=== PATIENT | female | born 1960 | race Caucasian/White ===

== ENCOUNTER → 2020-01-03 09:00 | Outpatient (BNVA) | payer MEDICARE, SELFPAY | PROVIDERS: Family Provider Nurse Practitioner; PCP Nurse Practitioner; Referring Provider Nurse Practitioner; Visit Provider Podiatrist Foot & Ankle Surgery | DX: Z01.89 Encounter for other specified special examinations (principal) | CPT/HCPCS: 87070; 87205 ==

== ENCOUNTER → 2020-01-03 09:02 | Outpatient (BNVA) | payer MEDICARE, SELFPAY | PROVIDERS: Family Provider Nurse Practitioner; PCP Nurse Practitioner; Referring Provider Nurse Practitioner; Visit Provider Podiatrist Foot & Ankle Surgery | DX: E11.43 Type 2 diabetes mellitus with diabetic autonomic (poly)neuropathy (principal); Z89.419 Acquired absence of unspecified great toe; L97.514 Non-pressure chronic ulcer of other part of right foot with necrosis of bone | CPT/HCPCS: 73630; 87070; 87205 ==

== ENCOUNTER 2020-01-09 07:49 | Outpatient (CLI) | payer MEDICARE, SELFPAY ==
--- NOTE | 2020-01-09 08:01 | MR_ITS ---
WS: [id number] INDICATION: Infection/osteomyelitis TECHNIQUE: MR of the right foot without gadolinium enhancement. Axial T1 and T2 and proton density im aging. Sagittal PD, STIR, coronal PD, and coronal T2 fat sat FINDINGS: Postoperative changes amputation distal first metatarsal. Soft tissue stump with soft tissu e edema. Normal soft tissue stump. No evidence of drainable abscess or fluid collection. Small amount of edema in the distal remnant first metatarsal likely reactive or post-operative. Soft tissue edema involving the second and digit more prominent distally. Loss of the normal fatty magdalena ne marrow signal in the distal second phalanx suspicious for osteomyelitis. No drainable fluid collec tions. Normal ankle mortise. Normal calcaneus. Normal distal tibial plafond. Distal Achilles appears normal. Normal medial and lateral malleolus. MR/MR foot RT wo con* [id number] IMPRESSION: 1. Edema involving the second digit with abnormal bone marrow signal involving the distal phalanx at the tuft suspicious for osteomyelitis. Small amount of e gopal extending into the second middle phalanx. 2. No drainable abscess or fluid collection. 3. Postoperative changes amputation of the distal first metatarsal with soft t issue edema.
== END 2020-01-09 07:50 | disposition home or self-care (01) ==
LOC: RADWPI 07:54
PROVIDERS: Family Provider Nurse Practitioner; PCP Nurse Practitioner; Visit Provider Podiatrist Foot & Ankle Surgery
DX: L97.514 Non-pressure chronic ulcer of other part of right foot with necrosis of bone (principal); Z89.421 Acquired absence of other right toe(s); R60.0 Localized edema
CPT/HCPCS: 73718

== ENCOUNTER 2020-01-10 05:41 | Day surgery (SDC) | payer MEDICARE, SELFPAY ==
[2020-01-10 05:55] VITALS: BP 130/78; PULSE 80; RESP 16; O2SAT 100
[2020-01-10 06:08] VITALS: TEMP 36.4
[2020-01-10] MEDS: sodium chloride 0.9% 1,000 ML 30 ML IV (06:10)
[2020-01-10 06:15] LABS: Glucose Point of Care 101 mg/dL (70-110)
--- NOTE | 2020-01-10 06:48 | P.ANESASSM_ITS ---
Pre-Anesthetic Assessment Pre-Anesthetic Assessment: Height/Weight: Height 1.75 m Weight 77.111 kg Temp Pulse Resp BP Pulse Ox 97.6 F 80 16 130/78 100 01/10/20 06:08 01/10/20 05:55 01/10/20 05:55 01/10/20 05:55 01/10/20 05:55 Preop Diagnosis: Osteomyelitis right second toe Proposed Procedure: Operation Date: 01/10/20 07:00 Proposed Procedures p Amputation Toe/s 82593 L97.514(Right) - Eduin Cardoso DPM Familial anesthetic complications: None Was Beta Malia taken within 24 ho urs: N/A Last intake: Intake Last Liquid Date 01/10/20 Last Liquid Time 21:00 Last Solid Date 01/09/20 Last Solid Time 21:00 Social: Social History: No alcohol and No tobacco Exam: Pre-Anes Outpt Exam: alert, oriented x 3, clear to auscultation bilaterally and regular rate & rhythm Airway: Cervical ROM: WNL MP: 2 Additional comments: crowns and bridges Pulmonary: Pulmonary: None reported CV/HEM: CV/HEM: HTN : : None reported Hepatic: Hepatic: None reported GI: GI: None reported Metabolic: Metabolic: DM Comments: Type 2 - takes insulin Musc/skel: Musc/skel: None reported Neuropsych: Neuropsych: CVA (1999) Anesthetic Plan: ASA status: 3 Anesthesia: MAC Risk of > 500 ml blood loss (7ml/kg in children): No Meds/Allergies Current Medications: Current Medications Generic Name Dose Route Start Last Admin Trade Name Freq PRN Reason Stop Dose Admin Sodium Chloride 1,000 mls @ 30 ml s/hr 01/10/20 05:45 01/10/20 06:10 Sodium Chloride 0.9% IV 01/11/20 05:44 30 mls/hr .Q24H FELICIA Administration PFSH Anesthesia PFSH: Social History (Updated 01/03/20 @ 08:19 by Mimi Velazquez LPN) Smoking and tobacco status: former smoker Alcohol intake: never Household members: spouse Marital status: Current occupational status: unemployed Female Reproductive History: Date of last menstrual period: 11/02/12 Data Anesthesia Other Labs: Laboratory Results - last 48 hr 01/10/20 06:11 POC Glucose 101 Cardiac Studies: No Data to Display
[2020-01-10] MEDS: clindamycin 600 MG/50 ML PREMIX 100 MG IV (06:59)
--- NOTE | 2020-01-10 07:42 | PM.OP ---
Operative Report Date of procedure: January 10, 2020 Pre-op Diagnosis: Osteomyelitis right second toe Post-op diagnosis: same Post-op Findings: Devitalized bone distal phalanx right second toe Procedure Done: Right second toe amputation at metatarsal phalangeal joint. Implants: None Specimens removed/disposition: Distal phalanx right second toe sent to microbiology for culture and sensitivity. Remaining second toe sent to pathology for permanent Pathology: Second toe right foot Surgeon: Eduin Cardoso D.P.M. Physician Interventional Cardiologist: Sheila Anesthesia: MAC Estimated blood loss: 5 mL IV fluids: None Urine output: None Complications: None Findings: Devitalized soft tissue and bone right second toe Condition: stable Disposition: PACU Brief History: Patient is status post right hallux amputation fall 2018. She has a transfer pressure and subsequent wound formation on the right second toe exposed bone. Significant lysis of distal phalanx on plain film x-ray. MRI suggestive of osteomyelitis of distal phalanx and potentially intermediate phalanx. Recommended right second toe amputation. Patient is agreeable. Risks include pain, bleeding, numbness, infection, need for higher level of amputation. Need for antibiotic therapy and further surgical debridement, transfer pressure and loss of function. Procedure: Under mild sedation the patient was brought to the operating room and placed on the operating table in supine position. A timeout was performed. Anesthesia was administered by the anesthesia service. Local anesthesia was injected by myself 20 cc of 0.5% Marcaine plain. Well-padded pneumatic tourniquet was applied to the right ankle. The right lower extremity was then scrubbed, prepped and draped utilizing normal aseptic technique. Right foot was elevated and the tourniquet was inflated to 250 mmHg. Attention was directed to the right foot second toe where a 15 blade was utilized to perform a full-thickness down to bone incision this was a vertical incision with 2 semielliptical converging incisions to disarticulate the right second toe at the metatarsal phalangeal joint. This was passed from operative field. Distal phalanx was dissected out on the back table and sent to microbiology for culture and sensitivity. Remaining second toe sent to pathology for permanent. Attention was then directed to the incision where it was flushed with copious amounts of sterile saline solution. Second metatarsal head appeared viable with appropriate color and density. No remaining devitalized tissue appreciated. There appeared to be clean margin at soft tissue and bone. Deep subcutaneous tissue was closed with 3-0 Vicryl. Skin closed with 4-0 nylon. Incision site was dressed with Adaptic, sterile 4 x 4's, Kerlix and Remi wrap. Tourniquet was deflated and a prompt hyperemic response was noted to the remaining digits of the right foot. Patient tolerated the procedure well and was transferred to the PACU with vital signs stable and vascular status intact. Following a period of postoperative monitoring she will be discharged home is to be limited weightbearing with a Darco shoe and walker. She will continue her doxycycline for an additional 7 days twice daily 100 mg. Follow-up in clinic 01/19/2020
[2020-01-10 07:47] VITALS: BP 107/70; PULSE 81; RESP 18; TEMP 36.1; O2SAT 96
[2020-01-10 08:11] VITALS: BP 127/81; PULSE 68; RESP 18; O2SAT 99
--- NOTE | 2020-01-10 12:10 | W.PM.OPSUD ---
Surgery/Procedure H&P Update DATE OF PROCEDURE: January 10, 2020 DATE H&P PERFORMED: 01/03/20 H&P UPDATE INFORMATION: I have reviewed H&P completed within last 30 days, I have examined patient prior to procedure, No changes to prior documentation and [place] [facility] [place] date indicated PREOP DIAGNOSIS: Osteomyelitis right second toe PLANNED PROCEDURE: Operation Date: 01/10/20 07:00 Proposed Procedures p Amputation Toe/s 00027 L97.514(Right) - Eduin Cardoso DPM
== END 2020-01-10 08:32 | disposition home or self-care (01) ==
PROVIDERS: Family Provider Nurse Practitioner; PCP Nurse Practitioner; Visit Provider Podiatrist Foot & Ankle Surgery
PROC: (CPT 28820; principal; 2020-01-10 07:00)
DX: M86.8X8 Other osteomyelitis, other site (principal); I10 Essential (primary) hypertension; E11.43 Type 2 diabetes mellitus with diabetic autonomic (poly)neuropathy; Z79.4 Long term (current) use of insulin; Z87.891 Personal history of nicotine dependence; E78.5 Hyperlipidemia, unspecified; Z89.411 Acquired absence of right great toe; L97.514 Non-pressure chronic ulcer of other part of right foot with necrosis of bone
CPT/HCPCS: 28820; 12345; 36416; 82962; 88305; J2001; J2704; J3010; J3490; J7030

== ENCOUNTER → 2020-01-15 11:40 | Outpatient (BNVA) | payer MEDICARE, SELFPAY | PROVIDERS: Family Provider Nurse Practitioner; PCP Nurse Practitioner; Referring Provider Nurse Practitioner; Visit Provider Podiatrist Foot & Ankle Surgery | DX: E11.43 Type 2 diabetes mellitus with diabetic autonomic (poly)neuropathy (principal); L97.514 Non-pressure chronic ulcer of other part of right foot with necrosis of bone; Z79.4 Long term (current) use of insulin; M20.41 Other hammer toe(s) (acquired), right foot; M20.42 Other hammer toe(s) (acquired), left foot; Z89.419 Acquired absence of unspecified great toe | CPT/HCPCS: 87070; 87077; 87186; 87205 ==

== ENCOUNTER → 2020-06-21 08:39 | Outpatient (BNVA) | payer MEDICARE, SELFPAY | PROVIDERS: Family Provider Nurse Practitioner; PCP Nurse Practitioner; Visit Provider Family Medicine | DX: I10 Essential (primary) hypertension (principal); E11.40 Type 2 diabetes mellitus with diabetic neuropathy, unspecified; E78.5 Hyperlipidemia, unspecified; E78.6 Lipoprotein deficiency; E11.9 Type 2 diabetes mellitus without complications | CPT/HCPCS: 80053; 80061; 82043; 83036; 85025 ==

== ENCOUNTER 2020-06-26 10:30 | Emergency (ER) | payer MEDICARE, SELFPAY ==
[2020-06-26 10:42] VITALS: BP 134/77; PULSE 84; PULSE 85; RESP 16; TEMP 36.7; O2SAT 100; O2SAT 99; BMI 26.1
--- NOTE | 2020-06-26 10:48 | CT_ITS ---
WS: [id number] CT HEAD NONCONTRAST HISTORY: stroke like symptoms TECHNIQUE: Contiguous axial imaging performed through the brain in 2.5 mm imaging. Bone and soft tiss ue windows. Sagittal and coronal reformats reviewed. All CT scans at [facility] use at ast one of these dose optimization techniques: automated exposure control; mA and/or kV adjustment pe r patient size (includes targeted exams where dose is matched to clinical indication); or iterative r econstruction. DLP: 775.94 mGy.cm COMPARISON: None available. No acute intracranial hemorrhage, midline shift or mass effect. Mild atrophy and chronic ischemic disease. Prior lacunar infarct RIGHT occipital lobe. Additional rem ote infarct in the LEFT cerebellum. Ventricles: Normal size with no hydrocephalus. Dense calcifications noted towards the LEFT vertex may be from calcified meningiomas. Metallic fragme nt causing artifact in the posterior LEFT parietal region. Paranasal sinuses: As visualized are clear. Mastoid air cells: Well pneumatized. Calvarium and scalp: No fractures. Prior defects in the RIGHT temporal and possibly the LEFT temporal and posterior parietal bone. Probably from prior surgery and melany hole formations. Notified Dr. Garcia at 06/26/2020 11:[address]/CT head wo con* [id number] IMPRESSION: 1. No acute intracranial hemorrhage. 2. Very mild atrophy. 3. Small prior lacunar infarct RIGHT occipital and LEFT cerebellum.
[2020-06-26 10:51] VITALS: BP 134/77; PULSE 80; RESP 17; O2SAT 100
--- NOTE | 2020-06-26 11:01 | CT_ITS ---
WS: [id number] CT ANGIOGRAM CEREBRAL AND CAROTID ARTERIES HISTORY: posterior circulation symptoms TECHNIQUE: CT angiogram is performed of the carotid and cerebral arteries. During arterial injection imaging is obtained from the skull vertex to the aortic arch in 1.25 mm imaging. Coronal and sagittal reformats are submitted. Additional multi planar reformats of the carotid and cerebral arteries are submitted, MIP imaging also reviewed. NASCET criteria utilized. All CT scans at [facility] use at least one of these dose optimization techniques: automated exposure control; mA and/or kV ad justment per patient size (includes targeted exams where dose is matched to clinical indication); or iterative reconstruction. CONTRAST: Visipaque 320; 95 mL IV. DLP: 2500.63 mGy.cm COMPARISON: Noncontrast CT head 06/26/2020, neck CT 04/30/2011. Carotid Angiogram: Right carotid: Common carotid artery: Arises normally from the innominate artery. No significant plaque or stenosis. Internal carotid artery: Small noncalcified plaque and intimal thickening bifurcation. No significant stenosis. External carotid artery: Patent. Left carotid: Common carotid artery: Mild atherosclerosis. Artery arises normally from the arch. Internal carotid artery: Mild intimal thickening and scattered plaque at the bifurcation. No stenosis . External carotid artery: Patent. Right vertebral artery: Small caliber. Distal vertebral arteries not well enhanced. Left vertebral artery: Arises normally from the subclavian artery. Very small caliber LEFT vertebral artery throughout its course. Distal vertebral and enhancement is poorly visualized. Subclavian arteries: Atherosclerosis bilaterally in the subclavian arteries. No high-grade stenosis. Upper thorax: Normal. Thyroid gland: Very small subcentimeter RIGHT thyroid nodules. Osseous structures: Mild degenerative disc disease and spondylosis at C5-C6. No fractures. CEREBRAL ANGIOGRAM: Intracranial vertebral arteries: Distal vertebral arteries are poorly visualized. There is a dense ca lcification expected location of the distal LEFT vertebral artery. Basilar artery: Basilar artery is small caliber but patent. Intracranial Internal carotid arteries: Dense atherosclerotic plaque through the cavernous sinuses. N o occlusion. Middle cerebral arteries: Normal. Anterior cerebral arteries and ACOM: Normal. Posterior cerebral arteries and PCOM's: circulation bilaterally posterior cerebral arteries. P- comm are patent. Dural venous sinuses are normally enhancing. Mastoid air cells: Normal. Paranasal sinuses: Normal. Calvarium: Normal. CT/CT angio headneck* [id number] IMPRESSION: 1. No significant extracranial carotid artery stenosis. 2. Moderate atherosclerosis intracranial carotid arteries with no high-grade s tenosis. 3. Vertebral arteries are very small caliber bilaterally with incomplete enhan cement in the distal vertebral arteries. These findings may be congenital. No t hrombus is identified. No evidence for dissection. Similar findings were noted on neck CT from 04/30/2011. 4. Small caliber but patent basilar artery.
--- NOTE | 2020-06-26 11:02 | ECG_ITS ---
[facility] Test Date: 2020-06-26 Pat Name: Misti Abbott Department: Room: Gender: Female Cytometry Technologist: : 1960 Requested By: Socorro Dos Santos Order Number: [id number] Brian MD: Jan Fritz M.D. Measurements Intervals [place] Rate: 83 P: -31 NH: 159 QRS: 23 QRSD: 68 T: 44 QT: 372 QTc: 438 Interpretive Statements SINUS RHYTHM Compared to ECG 07/01/2019 16:59:02 Sinus tachycardia no longer present Electronically Signed On 06-26-2020 12:21:00 CDT by Jan Fritz M.D. [id number]
[2020-06-26] MEDS: iodixanol 320 mg/mL 100mL Btl IV (11:20)
[2020-06-26 11:22] LABS: Basophils % 0.5 %; Eosinophils # 0.2 10^3/uL (0.0-0.8); Eosinophils % 2.3 %; Hematocrit 32.5 % (37.0-47.0); Hemoglobin 10.4 g/dL (11.5-15.3); Lymphocytes # 1.7 10^3/uL (0.8-4.8); Lymphocytes % 22.8 %; Mean Corpuscular Hemoglobin 27.5 pg (28.0-34.0); Mean Platelet Volume 11.6 fL (7.4-10.4); Monocytes # 0.8 10^3/uL (0.2-0.9); Monocytes % 10.9 %; Neutrophils % 63.2 %; Nucleated Red Blood Cells % 0 %; Platelet Count 197 10^3/cmm (130-400); Red Blood Count 3.78 10^6/uL (4.1-5.3); Red Cell Distribution Width 12.3 % (12.1-15.1); White Blood Count 7.4 10^3/uL (4.0-10.0)
[2020-06-26 11:36] LABS: Alanine Aminotransferase 26 U/L (0-33); Albumin Level 4.7 g/dL (3.5-5.2); Alkaline Phosphatase 69 IU/L (35-105); Anion Gap 14.6 (5-19); Aspartate Amino Transferase 26 U/L (0-32); Blood Urea Nitrogen 45 mg/dL (6-20); Calcium 9.3 mg/dL (8.5-10.5); Carbon Dioxide 22 mmol/L (22-29); Chloride 100 mmol/L (98-107); Globulin 2.7 g/dL (1.3-4.6); Glucose 169 mg/dL (65-115); INR 0.97 (0.8-1.2); Osmolality Calculated 276 mOsm/kg (285-295); Potassium 4.6 mmol/L (3.5-5.1); Sodium 132 mmol/L (136-145); Total Bilirubin 0.2 mg/dL (0.15-1.2); Total Protein 7.4 g/dL (6.6-8.7)
--- NOTE | 2020-06-26 11:38 | W.ED.NEUROSD ---
HPI - Neuro Symptoms/Deficit General: Chief Complaint: Neuro Symptoms/Deficit Stated Complaint: stroke symptoms Time Seen by Provider: 06/26/20 10:54 History of Present Illness: HPI Narrative: This patient is a 59-year-old female presenting today with stroke symptoms. She has a history of stroke, diabetes. She is well-known to Dr. Corbett who tells me that she has posterior circulation problems. My history mostly came from the as the patient was already in CT and being seen by Dr. Corbett on my arrival. He tells me that the patient called him at about 9:13 this morning and said that she was getting sick. She was having some slurred speech and said that she felt like she was being twisted around. She had some vomiting. These are symptoms similar to her prior stroke and so he immediately left work to get her and bring her to the hospital. The symptoms are waxing and waning. On evaluation she had a low NIH scale but persistent deviation of her gaze to the left. CT was negative and she is going back for a CTA per Dr. Corbett. Time: 08:00 Timing confirmed by: spouse Location: speech, dysarthria, ataxia and other (Dizziness, vertigo) History of same: Yes Severity: severe Quality: intermittent Relieving factors: none Exacerbating factors: none Context: sudden onset On Anticoagulants: No Associated symptoms: Reports nausea, vertigo and vomiting; Deny chest pain Review of Systems General: Reports: 10 or more systems reviewed and unremarkable except in HPI and below Card: Denies: chest pain Resp: Denies: productive cough GI: Reports: nausea and vomiting Neuro: Reports: vertigo Endo: Denies: polyuria or polydipsia [facility] ED PFSH: Medical History Hyperlipidemia with low HDL Hypertension Type 2 diabetes mellitus with diabetic neuropathy, unspecified Surgical History H/O tubal ligation History of amputation of great toe right 07/25/2019 Social History Smoking and tobacco status: former smoker Alcohol intake: never Household members: spouse Marital status: Current occupational status: unemployed Female Reproductive History: Date of last menstrual period: 11/02/12 Physical Exam Const: COMMON NORMALS: no acute distress, patient oriented x3, no limitations and alert GENERAL APPEARANCE: cooperative, comfortable, well kempt, anxious, frail appearing and appears older than stated age NUTRITIONAL APPEARANCE: thin HENMT: HEAD & SCALP: normal to inspection FACE & SINUS: normal facial exam Eye: GENERAL EYE: appearance normal, both eyes and all related structures ALIGNMENT: Yes other (Preferential gaze to the left) Neck/C-Spine: COMMON NORMALS: supple, no meningeal signs and no JVD Chest: COMMONS NORMALS: normal inspection of the chest Resp: COMMON NORMALS: normal respiratory effort, No use of accessory muscles and clear to auscultation bilaterally AUSCULTATION: clear to auscultation bilaterally Cardio: COMMON NORMALS: no JVD, regular rate, regular rhythm and No murmurs present (Cardio) RATE: regular rate RHYTHM: regular rhythm GI: COMMON NORMALS: Normal to inspection, nondistended, normoactive bowel sounds present, Soft to palpation and non-tender INSPECTION: Yes normal to inspection AUSCULTATION: Yes normoactive bowel sounds PALPATION: Yes Soft to palpation Back/Pelvis: COMMON NORMALS: thoracic and lumbar spine normal to inspection Extremity: COMMON NORMALS: normal to inspection Neuro: COMMON NORMALS: patient oriented x3, moves all extremities, no focal motor deficits and no sensory deficits noted SENSORIUM/ORIENTATION: Yes alert MENINGEAL SIGNS: Yes no meningeal signs CRANIAL NERVES: Yes other (Preferential gaze to the left) OTHER: Residual symptoms from prior stroke, neuropathy related to diabetes Psych: COMMON NORMALS: mental status grossly normal, cooperative and normal affect APPEARANCE: Yes well kempt Skin: COMMON NORMALS: no rashes or lesions noted and turgor normal GENERAL SKIN EXAM: no rashes or lesions noted and turgor normal Course ED course: Patient presented and was immediately sent to CT. Dr. Corbett saw her in the department and managed her care. She had a CTA which showed unchanged narrowing of the posterior circulation. Per discussion with Dr. Corbett I have put her on aspirin and Plavix and she will follow-up with Dr. Corbett in the office. We offered admission but she prefers to go home and I feel that she is safe to do so. Vital Signs: Vital signs: Vital Signs Temperature 97.3 F L 06/26/20 12:48 Pulse Rate 82 08/05/20 12:48 Respiratory Rate 18 06/26/20 12:48 Blood Pressure 117/69 06/26/20 12:48 Pulse Oximetry 99 06/26/20 12:48 MDM - Neuro Symptoms/Deficit Lab Data: Labs: Lab Results 06/26/20 06/26/20 06/26/20 Range/Units 10:41 10:42 10:42 WBC 7.4 (4.0-10.0) 10^3/ uL RBC 3.78 L (4.1-5.3) 10^6/u L Hgb 10.4 L (11.5-15.3) g/dL Hct 32.5 L (37.0-47.0) % MCV 86.0 (81-99) fL MCH 27.5 L (28.0-34.0) pg MCHC 32.0 (30.0-36.0) g/dL RDW 12.3 (12.1-15.1) % Plt Count 197 (130-400) 10^3/c mm MPV 11.6 H (7.4-10.4) fL Neut % (Auto) 63.2 % Lymph % (Auto) 22.8 % Dale % (Auto) 10.9 % Eos % (Auto) 2.3 % Baso % (Auto) 0.5 % Neut # (Auto) 4.70 (1.8-7.7) 10^3/u L Lymph # (Auto) 1.7 (0.8-4.8) 10^3/u L Dale # (Auto) 0.8 (0.2-0.9) 10^3/u L Eos # (Auto) 0.2 (0.0-0.8) 10^3/u L Baso # (Auto) 0.0 (0.0-0.1) 10^3/u L Nucleated RBC % (a uto) 0 % Nucleated RBCs # 0.0 /100WBC PT 13.20 (12.1-14.9) SECO NDS INR 0.97 (0.8-1.2) APTT 25.1 (23.9-36.7) SECO NDS Sodium (136-145) mmol/L Potassium (3.5-5.1) mmol/L Chloride (98-107) mmol/L Carbon Dioxide (22-29) mmol/L Anion Gap (5-19) BUN (6-20) mg/dL Creatinine (0.5-0.9) mg/dL GFR Calculation (90-130) mL/min Glucose (65-115) mg/dL POC Glucose 166 (70-110) mg/dL Calculated Osmolal ity (285-295) mOsm/k g Calcium (8.5-10.5) mg/dL Total Bilirubin (0.15-1.2) mg/dL AST (0-32) U/L ALT (0-33) U/L Alkaline Phosphata se (35-105) IU/L Total Protein (6.6-8.7) g/dL Albumin (3.5-5.2) g/dL Globulin (1.3-4.6) g/dL Urine Color (Yellow) Urine Appearance (CLEAR) Urine pH (5-7) Ur Specific Gravit y (1.005-1.030) Urine Protein (Negative) Urine Glucose (UA) (Normal) Urine Ketones (Negative) Urine Blood (Negative) Urine Nitrate (Negative) Urine Bilirubin (NEGATIVE) Urine Urobilinogen (Negative) mg/dL Ur Leukocyte Sandra ase (Negative) 06/26/20 06/26/20 Range/Units 10:42 11:50 WBC (4.0-10.0) 10^3/ uL RBC (4.1-5.3) 10^6/u L Hgb (11.5-15.3) g/dL Hct (37.0-47.0) % MCV (81-99) fL MCH (28.0-34.0) pg MCHC (30.0-36.0) g/dL RDW (12.1-15.1) % Plt Count (130-400) 10^3/c mm MPV (7.4-10.4) fL Neut % (Auto) % Lymph % (Auto) % Dale % (Auto) % Eos % (Auto) % Baso % (Auto) % Neut # (Auto) (1.8-7.7) 10^3/u L Lymph # (Auto) (0.8-4.8) 10^3/u L Dale # (Auto) (0.2-0.9) 10^3/u L Eos # (Auto) (0.0-0.8) 10^3/u L Baso # (Auto) (0.0-0.1) 10^3/u L Nucleated RBC % (a uto) % Nucleated RBCs # /100WBC PT (12.1-14.9) SECO NDS INR (0.8-1.2) APTT (23.9-36.7) SECO NDS Sodium 132 L (136-145) mmol/L Potassium 4.6 (3.5-5.1) mmol/L Chloride 100 (98-107) mmol/L Carbon Dioxide 22 (22-29) mmol/L Anion Gap 14.6 (5-19) BUN 45 H (6-20) mg/dL Creatinine 1.7 H (0.5-0.9) mg/dL GFR Calculation 31.0 L (90-130) mL/min Glucose 169 H (65-115) mg/dL POC Glucose (70-110) mg/dL Calculated Osmolal ity 276 L (285-295) mOsm/k g Calcium 9.3 (8.5-10.5) mg/dL Total Bilirubin 0.2 (0.15-1.2) mg/dL AST 26 (0-32) U/L ALT 26 (0-33) U/L Alkaline Phosphata se 69 (35-105) IU/L Total Protein 7.4 (6.6-8.7) g/dL Albumin 4.7 (3.5-5.2) g/dL Globulin 2.7 (1.3-4.6) g/dL Urine Color Yellow (Yellow) Urine Appearance Clear (CLEAR) Urine pH 5 (5-7) Ur Specific Gravit y 1.010 (1.005-1.030) Urine Protein Neg (Negative) Urine Glucose (UA) Norm (Normal) Urine Ketones Negative (Negative) Urine Blood Neg (Negative) Urine Nitrate Negative (Negative) Urine Bilirubin Neg (NEGATIVE) Urine Urobilinogen Neg (Negative) mg/dL Ur Leukocyte Sandra ase Negative (Negative) Discharge Plan Discharge Patient Disposition: Home Clinical Impression: Transient cerebral ischemia Qualifiers: Transient cerebral ischemia type: unspecified Qualified Code(s): G45.9 - Transient cerebral ischemic attack, unspecified Type 2 diabetes mellitus with diabetic neuropathy, unspecified Qualifiers: Diabetes mellitus oil heaterman insulin use: with penitentiary use Qualified Code(s): E11.40 - Type 2 diabetes mellitus with diabetic neuropathy, unspecified Condition: Stable Prescriptions: New Plavix 75 mg tablet 75 mg PO DAILY Qty: 30 RF: 0 aspirin 325 mg tablet 325 mg PO DAILY Qty: 30 RF: 0 meclizine 25 mg tablet 25 mg PO TID PRN (Reason: dizziness) Qty: 30 RF: 0 No Action lisinopril 2.5 mg tablet 2.5 mg PO BEDTIME RF: 0 Lantus U-100 Insulin 100 unit/mL solution 25 unit SUBCUT BEDTIME Qty: 10 RF: 1 Novolog Flexpen U-100 Insulin 100 unit/mL (3 mL) insulin pen See Rx Instructions .ROUTE .COMPLEX Qty: 15 RF: 0 rosuvastatin 10 mg tablet 10 mg PO DAILY RF: 0 Discharge Orders: Discharge Order (Routine); Ordered 06/26/20 Ordered By: Socorro Solorzano Referrals: Jahaira Corbett MD [Physician] - 2 weeks Marjorie Cullen FNP [Primary Care Provider] - Discharge Diet: Usual diet Discharge Activity: Resume usual activity Patient Instructions: Transient Ischemic Attack (ED) Activity Restrictions/Additional Instructions: Return to the emergency department if you have new or worse symptoms or symptoms that do not resolve. Follow-up with Dr. Corbett in 1 to 2 weeks. Take the aspirin and Plavix daily, starting tomorrow morning. Discharge Date/Time: 06/26/20 12:51 Coding Level of Care Code ED [employer] Sales Supervisor for [facility] Fwd Exam Comprehensive
[2020-06-26 11:39] LABS: Partial Thromboplastin Time 25.1 SECONDS (23.9-36.7)
[2020-06-26 11:45] VITALS: BP 134/81; PULSE 83; RESP 16; O2SAT 100
[2020-06-26 11:45] LABS: Glucose Point of Care 166 mg/dL (70-110)
[2020-06-26] MEDS: ondansetron 2 mg/ML SDV 2 mL 4 MG IVP (11:46)
[2020-06-26 12:09] LABS: Add Urine Microscopic? NO
[2020-06-26 12:30] LABS: Bilirubin Urine Neg (NEGATIVE); Blood Urine Neg (Negative); Glucose Urine UA Norm (Normal); Ketones Urine Negative (Negative); Leukocyte Esterase Urine Negative (Negative); Nitrate Urine Negative (Negative); Protein Urine Neg (Negative); Urine Appearance Clear (CLEAR); Urine Color Yellow (Yellow); Urobilinogen Urine Neg (Negative); pH Urine 5 (5-7)
[2020-06-26] MEDS: clopidogrel 75 mg Tablet PO (12:47)
[2020-06-26] MEDS: aspirin 325 mg Tablet PO (12:47)
[2020-06-26] MEDS: meclizine 25 mg tablet PO (12:47)
[2020-06-26 12:48] VITALS: BP 117/69; PULSE 82; RESP 18; TEMP 36.3; O2SAT 99
--- NOTE | 2020-06-26 17:34 | PM.SAN ---
Stroke Alert Activation ED Arrival Date: 06/26/20 ED Arrival Time: 10:30 ED Physican at Bedside: 10:40 Last Known Normal/at Baseline: 2-3 hours ago Other Last Known Well Infomation: I was called for stroke alert at 1049 for this 59-year-old woman who is well-known to me, as I took care of her more than 10 years ago when she had a brainstem stroke. She got up this morning and was feeling fine. She developed the sudden onset of severe vertigo. She called out to her for help. She could walk but not well. She vomited twice. Her vision was disturbed. She came to the emergency department with her and was identified as a stroke alert in triage at 1030. Stroke alert was called at 1048. Accu-Chek was 166 and blood pressure 134/77. She went to CAT scan at 1050 and I looked at her images on the monitor. Those were unremarkable. While they were completing the study I looked at another patient who was identified in triage as a stroke alert as he was in a wheelchair waiting to come into CAT scan. I followed this patient back to her room and performed an NIH stroke scale in the company of Dr. Solorzano. 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 I performed a Hallpike [place] and it was negative for positional vertigo. I stood her up and she was able to march in place at the bedside. I could not find any sign of new weakness. She has dense right hemianesthesia and upper motor neuron right arm that is chronic as well as [id number] ataxia on the right that is chronic from previous cerebellar infarct. I asked that she have a stat CT angiogram to rule out posterior circulation occlusion because of her profound vertigo and left-sided nystagmus. I observe that study on the monitor and notify Dr. Solorzano. The patient has small right vertebral artery, extremely small left vertebral artery and both of those and before the basilar artery, which seems to be filled from above by the posterior communicators. I looked at a CAT scan of the neck soft tissues that was done in 2010 and it shows the same circulation. It just happens that her circulation could be visualized on the old CAT scan. I advised that the patient could go home on Plavix and aspirin and I will work her into the clinic within a couple of weeks. Dr. Solorzano and I communicated multiple times on this patient. Stroke Alert Activated by: Triage Stroke Alert Activation Time: 10:48 Stroke MD @ Bedside Time: 10:50 NIH Stroke Scale Time: 10:52 NIH Stroke Scale Score: NIH Stroke Scale Score: 1 NIH stroke score NIHSS: Level Of Consciousness - 1a: 0 Level Of Consciousness Questions - 1b: Both Correct Level Of Consciousness Commands - 1c: Both Correct Best Gaze - 2: Normal Visual Ferrell - 3: No Visual Loss Facial Palsy - 4: Normal Motor Arm Right - 5: Drift (Atrophy right upper extremity with slight weakness from old stroke) Motor Arm Left - 5: No Drift Motor Leg Right - 6: No Drift Motor Leg Left - 6: No Drift Limb Ataxia - 7: Present In One Limb (Ataxia right lower extremity old stroke) Sensory - 8: Mild To Moderate Loss (At least moderate to severe anesthesia right side) Best Language - 9: No Aphasia Dysarthia - 10: Normal Extinction And Inattention - 11: 0 Score: Total Score: 3 Stroke Alert Data/Treatment Time to CT of Head: 10:50 CT Results Time: 10:55 CT Impression: Negative Stroke Risk Factors: hypertension and diabetes mellitus (Previous brainstem stroke, known vertebral artery stenosis) tPA Contraindication: tPA Contraindication: Treatment not indcated tPA Admin Prior to Arrival: No Patient & Family Educated on: Cause of Stroke, Risk Factors and Treament Plan Standardized Stroke Orders Used: No (Patient did not require admission) Critical Care Time Critical Care Time: 30 - 74 mins A&P Assessment and plan (1) Transient cerebral ischemia: Status: Acute Qualifiers: Transient cerebral ischemia type: unspecified Qualified Code(s): G45.9 - Transient cerebral ischemic attack, unspecified (2) Vertebrobasilar artery insufficiency: Transient severe vertigo to the point of vomiting with left-sided nystagmus. Although she has a history of congenital nystagmus previously diagnosed, this nystagmus was focal and I think it was related to brainstem ischemia. Her symptoms and signs cleared over the course of her stay and she did not receive TPA. Plan on discharging her from the ER on Plavix and aspirin and I will see her in the office within a couple of weeks. Status: Acute Coding Level of Care Code Acute Right Of Way Worker for [facility] Diagnoses Transient cerebral ischemia G45.9 Transient cerebral ischemia type: unspecified Vertebrobasilar artery insufficiency G45.0
== END 2020-06-26 12:51 | disposition home or self-care (01) ==
PROVIDERS: Emergency Provider Emergency Medicine; Family Provider Nurse Practitioner; PCP Nurse Practitioner
DX: G45.9 Transient cerebral ischemic attack, unspecified (principal); E11.40 Type 2 diabetes mellitus with diabetic neuropathy, unspecified; Z79.4 Long term (current) use of insulin; E78.5 Hyperlipidemia, unspecified; I10 Essential (primary) hypertension; Z87.891 Personal history of nicotine dependence
CPT/HCPCS: 12345; 36416; 70450; 70496; 70498; 80053; 81003; 82962; 85025; 85610; 85730; 93005; 93010; 96374; 96375; 99283; 99284; J2405; J8597; Q9967

== ENCOUNTER → 2020-07-17 14:24 | Outpatient (BNVA) | payer MEDICARE, SELFPAY | PROVIDERS: Family Provider Nurse Practitioner; PCP Nurse Practitioner; Referring Provider Specialist; Visit Provider Specialist | DX: G62.9 Polyneuropathy, unspecified (principal); I69.398 Other sequelae of cerebral infarction; R20.9 Unspecified disturbances of skin sensation; R42 Dizziness and giddiness; Z87.891 Personal history of nicotine dependence | CPT/HCPCS: 99205 ==

== ENCOUNTER → 2020-07-26 10:07 | Outpatient (BNVA) | payer MEDICARE, SELFPAY | PROVIDERS: Family Provider Nurse Practitioner; PCP Nurse Practitioner; Visit Provider Family Medicine | DX: D50.9 Iron deficiency anemia, unspecified (principal); E11.40 Type 2 diabetes mellitus with diabetic neuropathy, unspecified; Z79.4 Long term (current) use of insulin; Z01.419 Encounter for gynecological examination (general) (routine) without abnormal findings | CPT/HCPCS: 80048; 82728; 83550; 88175 ==

== ENCOUNTER 2020-08-06 08:09 | Outpatient (CLI) | payer MEDICARE, SELFPAY ==
--- NOTE | 2020-08-06 08:18 | MR_ITS ---
WS: [id number] MRI BRAIN WITHOUT CONTRAST HISTORY: I63.9 Cerebral infarction, unspecified COMPARISON: CT 06/26/2020 TECHNIQUE: Diffusion imaging, multiplanar T1, T2 and FLAIR imaging obtained. No evidence for acute infarct or hemorrhage. Bhatia-white matter differentiation is normal. Minimal chronic T2 and FLAIR signal hyperintensities in subcortical white matter. Prior small infarct s in the far lateral LEFT cerebellum and RIGHT occipital lobes. Ventricles and extra-axial spaces are normal. No inferior displacement of cerebellar tonsils. The sella turcica and pituitary gland are unremarkabl e. Dural venous sinuses and [place] demonstrate no abnormality on this unenhanced studies. Paranasal sinuses: Clear. Mastoid air cells: Normal. Calvarium and scalp: Intact. MR/MR head wo con* [id number] IMPRESSION: 1. No acute infarct or hemorrhage. 2. Mild chronic microvascular ischemic disease. 3. Remote small infarcts RIGHT occipital lobe and LEFT cerebellum.
--- NOTE | 2020-08-06 09:30 | MR_ITS ---
WS: [id number] MRA ANGIOGRAPHY [place] HISTORY: I63.9 Cerebral infarction, unspecified COMPARISON: CT angiogram 06/26/2020 TECHNIQUE: 3-D MR angiography is performed of the [place]. All images are reviewed including source images. Very small hypoplastic or occluded distal vertebral arteries prior to the basilar artery. The LEFT di stal vertebral artery slightly greater diameter than the RIGHT. Basilar artery is also small caliber measuring less than 2 mm. These findings are very similar to a prior neck CT from 2010. No aneurysms. Posterior cerebral arteries are more normal caliber. Intracranial portion of the internal carotid arteries are normal course and caliber. No significant a therosclerosis, stenosis or aneurysm identified. Middle and anterior cerebral arteries are both paten t with no significant disease. Anterior communicating artery is also normal. MR/MR angio head wo con [id number] IMPRESSION: 1. Very small caliber/hypoplastic or absent distal vertebral arteries. Similar to prior study from 2010. Probably congenital. 2. Small caliber basilar artery throughout its course is also unchanged. 3. The remaining [place] is normal caliber with no aneurysm or occlus ion.
--- NOTE | 2020-08-06 09:30 | MR_ITS ---
WS: [id number] MRA CAROTID ARTERIES HISTORY: cva COMPARISON: CT angiogram 06/26/2020 TECHNIQUE: MRA is performed with intravenous gadolinium. MIP and source images are reviewed. Right: Normal caliber RIGHT common carotid artery. Very minimal atherosclerotic plaque and irregulari ty at the bifurcation. Internal and external carotid arteries are widely patent. Left: Normally arises from the arch. Normal caliber of the common carotid artery. There is very mild narrowing of the mid common carotid artery of less than 50%. Mild atherosclerosis internal/external c arotid arteries. Subclavian Arteries: Proximal LEFT subclavian artery from the arch is not included in this examinatio n. Subclavian distal to the vertebral artery is normal caliber. RIGHT subclavian artery is normal. Vertebral Arteries: LEFT vertebral artery arises normally from the subclavian. Very small caliber and intermittently visualized. Very small caliber RIGHT vertebral artery intermittently visualized throu ghout its course. On the [id number] images vertebral arteries are slightly better visualized. MR/MR angio neck w con* [id number] IMPRESSION: 1. Very small caliber vertebral arteries bilaterally as previously described. 2. No significant carotid artery stenosis.
== END 2020-08-06 08:10 | disposition home or self-care (01) ==
LOC: RADSHAW 08:09
PROVIDERS: PCP Family Medicine; Visit Provider Specialist
DX: Z11.59 Encounter for screening for other viral diseases (principal); D50.8 Other iron deficiency anemias; I63.9 Cerebral infarction, unspecified; I67.82 Cerebral ischemia
CPT/HCPCS: 70544; 70548; 70551; 87635; A9579

== ENCOUNTER 2020-08-08 08:03 | Day surgery (SDC) | payer MEDICARE, SELFPAY ==
[2020-08-07 08:04] VITALS: BMI 26.6
[2020-08-08 08:17] VITALS: BP 130/76; PULSE 83; RESP 18; TEMP 36.1; O2SAT 99; BMI 26.6
--- NOTE | 2020-08-08 08:23 | ANES.PREANE2 ---
Pre-Anesthetic Assessment Pre-Anesthetic Assessment: Height/Weight: Height 1.75 m Weight 81.647 kg Preop Diagnosis: Anemia Proposed Procedure: Operation Date: 08/08/20 09:00 Proposed Procedures p EGD/colon 13048 18625 D50.8(Not Applicable) - Reynold Felder MD s Colonoscopy(Not Applicable) - Reynold Felder MD Social: Comment: former smoker CV/HEM: CV/HEM: Anemia and HTN Metabolic: Metabolic: DM and Hyperlipidemia Neuropsych: Neuropsych: CVA and TIA Comments: brainstem stroke resulting in R-side numbness and nystagmus Recent cva/stroke 06/26/20 - followed by [facility], placed on plavix and ASA Anesthetic Plan: ASA status: 3 Anesthesia: MAC Risk of > 500 ml blood loss (7ml/kg in children): No PFSH Anesthesia PFSH: Medical History Hyperlipidemia with low HDL Hypertension Type 2 diabetes mellitus with diabetic neuropathy, unspecified Surgical History H/O tubal ligation History of amputation of great toe right 07/25/2019 Social History Smoking and tobacco status: former smoker Alcohol intake: never Household members: spouse Marital status: Current occupational status: unemployed Female Reproductive History: Date of last menstrual period: 11/02/12 Data Anesthesia Cardiac Studies: No Data to Display
--- NOTE | 2020-08-08 08:26 | P.ANESASSM_ITS ---
Pre-Anesthetic Assessment Pre-Anesthetic Assessment: Height/Weight: Height 1.75 m Weight 81.647 kg Preop Diagnosis: Anemia Proposed Procedure: Operation Date: 08/08/20 09:00 Proposed Procedures p EGD/colon 34274 65655 D50.8(Not Applicable) - Reynold Felder MD s Colonoscopy(Not Applicable) - Reynold Felder MD Familial anesthetic complications: denies Was Beta Malia taken within 24 hours: N/A Last Intake: 00:00 Social: Social History: No alcohol and No tobacco (ex smoker stopped in 1999) Exam: Pre-Anes Outpt Exam: alert and oriented x 3 Airway: Submandibular: WNL Cervical ROM: WNL (neck stiffness tilting backwards ) MP: 1 Dentition: Other (intact ) Additional comments: voice implant done by dr pryor done in 2004 post stroke for vocal cord paralysis Pulmonary: Pulmonary: Sleep apnea (states she preciously had but has improved with weight loss ) CV/HEM: CV/HEM: HTN : Comments: been 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 a 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 Hepatic: Hepatic: None reported GI: GI: None reported Metabolic: Metabolic: DM (IDDM ) Musc/skel: Musc/skel: None reported Neuropsych: Neuropsych: CVA (2000 weakness on right side, able to walk ), Deficit (right sided weakness ) and TIA Anesthetic Plan: ASA status: 2 Anesthesia: Anesthesia Evaluation and MAC PFSH Anesthesia PFSH: Medical History Hyperlipidemia with low HDL Hypertension Type 2 diabetes mellitus with diabetic neuropathy, unspecified Surgical History H/O tubal ligation History of amputation of great toe right 07/25/2019 Social History Smoking and tobacco status: former smoker Alcohol intake: never Household members: spouse Marital status: Current occupational status: unemployed Female Reproductive History: Date of last menstrual period: 11/02/12 Data Anesthesia Cardiac Studies: No Data to Display
[2020-08-08 08:33] LABS: Glucose Point of Care 149 mg/dL (70-110)
[2020-08-08] MEDS: sodium chloride 0.9% 1,000 ML 30 ML IV (08:35)
--- NOTE | 2020-08-08 09:06 | W.PM.OPSUD ---
Surgery/Procedure H&P Update DATE OF PROCEDURE: August 08, 2020 DATE H&P PERFORMED: 07/26/20 H&P UPDATE INFORMATION: I have reviewed H&P completed within last 30 days, I have examined patient prior to procedure and No changes to prior documentation PREOP DIAGNOSIS: Anemia PLANNED PROCEDURE: Operation Date: 08/08/20 09:00 Proposed Procedures p EGD/colon 97506 50133 D50.8(Not Applicable) - Reynold Felder MD s Colonoscopy(Not Applicable) - Reynold Felder MD
[2020-08-08 09:07] LABS: Potassium 4.4 mmol/L (3.5-5.1)
[2020-08-08 09:50] VITALS: BP 100/69; PULSE 77; RESP 16; TEMP 36.4; O2SAT 98
--- NOTE | 2020-08-08 09:52 | ANE.PACU2 ---
Inpatient post-anesthesia follow up: Airway intact: Yes Vital signs: Temperature 97 F Pulse Rate 83 Respiratory Rate 18 Blood Pressure 130/76 Pulse Oximetry 99 Oxygen Delivery Me thod Room Air Oxygen Flow Rate Fraction of Inspir ed Oxygen Hydration adequate: Yes Nausea and vomiting: No Pain level: 1 Mental status: Baseline
[2020-08-08 10:08] VITALS: BP 108/79; PULSE 70; RESP 18; O2SAT 100
== END 2020-08-08 10:25 | disposition home or self-care (01) ==
PROVIDERS: Anesthesiology; PCP Family Medicine; Visit Provider Surgery
PROC: 0DJ08ZZ Inspection of Upper Intestinal Tract, Via Natural or Artificial Opening Endoscopic (ICD-10-PCS; CPT 43235; principal; 2020-08-08 09:00)
PROC: 0DJD8ZZ Inspection of Lower Intestinal Tract, Via Natural or Artificial Opening Endoscopic (ICD-10-PCS; CPT 45378; 2020-08-08 09:00)
DX: D12.0 Benign neoplasm of cecum (principal); K57.30 Diverticulosis of large intestine without perforation or abscess without bleeding; K64.0 First degree hemorrhoids; K25.9 Gastric ulcer, unspecified as acute or chronic, without hemorrhage or perforation; D50.9 Iron deficiency anemia, unspecified; I10 Essential (primary) hypertension; E78.5 Hyperlipidemia, unspecified; E11.40 Type 2 diabetes mellitus with diabetic neuropathy, unspecified; I69.351 Hemiplegia and hemiparesis following cerebral infarction affecting right dominant side; I69.398 Other sequelae of cerebral infarction; Z79.4 Long term (current) use of insulin; Z79.82 Long term (current) use of aspirin; Z87.891 Personal history of nicotine dependence; Z88.0 Allergy status to penicillin; Z88.5 Allergy status to narcotic agent
CPT/HCPCS: 12345; 36416; 43235; 45385; 82962; 84132; 88305; J2704; J7030

== ENCOUNTER → 2020-08-13 11:00 | Outpatient (BNVA) | payer MEDICARE, SELFPAY | PROVIDERS: PCP Family Medicine; Visit Provider Specialist | DX: E11.40 Type 2 diabetes mellitus with diabetic neuropathy, unspecified (principal); R42 Dizziness and giddiness; G45.0 Vertebro-basilar artery syndrome; Z87.891 Personal history of nicotine dependence; Z86.73 Personal history of transient ischemic attack (TIA), and cerebral infarction without residual deficits; Z79.4 Long term (current) use of insulin | CPT/HCPCS: 99215 ==

== ENCOUNTER 2020-08-16 09:39 | Outpatient (CLI) | payer MEDICARE, SELFPAY ==
--- NOTE | 2020-08-16 10:00 | MM_ITS ---
WS: [id number] BILATERAL SCREENING DIGITAL MAMMOGRAM WITH CAD HISTORY: screening mammogram COMPARISON: None available. Bilateral CC and MLO views submitted. Computer aided detection analyzed. Breast composition: There are scattered areas of fibroglandular density. No suspicious masses, microc alcifications or architectural distortion. Benign intramammary lymph node LEFT upper-outer quadrant. MM/[place] [id number] IMPRESSION: BI-RADS: 2-Benign FOLLOW UP: 1 Year Follow-up
== END 2020-08-16 09:40 | disposition home or self-care (01) ==
LOC: RADSHAW 09:39
PROVIDERS: PCP Family Medicine; Visit Provider Family Medicine
DX: Z12.31 Encounter for screening mammogram for malignant neoplasm of breast (principal)
CPT/HCPCS: 77067

== ENCOUNTER 2020-08-16 09:41 | Outpatient (CLI) | payer MEDICARE, SELFPAY ==
[2020-08-16 11:18] LABS: Estmated Average Glucose 151; Hemoglobin A1C 6.9 % (4.0-6.0)
== END 2020-08-16 09:42 | disposition home or self-care (01) ==
LOC: LAB 09:49
PROVIDERS: PCP Family Medicine; Visit Provider Specialist
DX: E11.40 Type 2 diabetes mellitus with diabetic neuropathy, unspecified (principal); Z79.4 Long term (current) use of insulin
CPT/HCPCS: 83036

== ENCOUNTER → 2020-08-22 13:54 | Outpatient (BNVA) | payer MEDICARE, SELFPAY | PROVIDERS: PCP Family Medicine; Referring Provider Specialist; Visit Provider Internal Medicine | DX: E11.40 Type 2 diabetes mellitus with diabetic neuropathy, unspecified (principal); Z79.4 Long term (current) use of insulin; E78.5 Hyperlipidemia, unspecified; E78.6 Lipoprotein deficiency; I10 Essential (primary) hypertension | CPT/HCPCS: 99204 ==

== ENCOUNTER 2020-11-08 07:23 | Outpatient (RCR) | payer MEDICARE, SELFPAY | END 2020-11-21 23:59 | disposition home or self-care (01) | LOC: SPT 07:23 | PROVIDERS: PCP Family Medicine; Referring Provider Otolaryngology; Visit Provider Otolaryngology | DX: R42 Dizziness and giddiness (principal); I10 Essential (primary) hypertension; D50.8 Other iron deficiency anemias | CPT/HCPCS: 80053; 82728; 83550; 85025; 97112; 97162 ==

== ENCOUNTER 2020-11-22 06:00 | Outpatient (RCR) | payer MEDICARE, SELFPAY | END 2020-12-22 23:59 | disposition home or self-care (01) | LOC: SPT 06:00 | PROVIDERS: PCP Family Medicine; Referring Provider Otolaryngology; Visit Provider Otolaryngology | DX: R42 Dizziness and giddiness (principal) | CPT/HCPCS: 95992; 97112 ==

== ENCOUNTER → 2020-11-29 08:04 | Outpatient (BNVA) | payer MEDICARE, SELFPAY | PROVIDERS: PCP Family Medicine; Visit Provider Internal Medicine | DX: E11.22 Type 2 diabetes mellitus with diabetic chronic kidney disease (principal); N18.30 Chronic kidney disease, stage 3 unspecified; E11.319 Type 2 diabetes mellitus with unspecified diabetic retinopathy without macular edema; E11.40 Type 2 diabetes mellitus with diabetic neuropathy, unspecified; Z79.4 Long term (current) use of insulin; E78.5 Hyperlipidemia, unspecified; E78.6 Lipoprotein deficiency; I10 Essential (primary) hypertension | CPT/HCPCS: 83036; 99214 ==

== ENCOUNTER 2020-11-29 11:03 | Outpatient (CLI) | payer MEDICARE, SELFPAY ==
[2020-11-29 13:06] LABS: Estmated Average Glucose 131; Hemoglobin A1C 6.2 % (4.0-6.0)
== END 2020-11-29 11:04 | disposition home or self-care (01) ==
LOC: ONCMED 11:05
PROVIDERS: PCP Family Medicine; Visit Provider Internal Medicine
DX: E11.40 Type 2 diabetes mellitus with diabetic neuropathy, unspecified (principal); Z79.4 Long term (current) use of insulin
CPT/HCPCS: 83036

== ENCOUNTER 2020-12-23 06:00 | Outpatient (RCR) | payer MEDICARE, SELFPAY | END 2021-01-19 23:59 | disposition home or self-care (01) | LOC: SPT 06:00 | PROVIDERS: PCP Family Medicine; Referring Provider Otolaryngology; Visit Provider Otolaryngology | DX: R42 Dizziness and giddiness (principal) | CPT/HCPCS: 97112 ==

== ENCOUNTER → 2021-02-07 09:07 | Outpatient (BNVA) | payer MEDICARE, SELFPAY | PROVIDERS: PCP Family Medicine; Visit Provider Family Medicine | DX: E78.5 Hyperlipidemia, unspecified (principal); E78.6 Lipoprotein deficiency; N18.32 Chronic kidney disease, stage 3b; Z68.26 Body mass index [BMI] 26.0-26.9, adult; F17.211 Nicotine dependence, cigarettes, in remission | CPT/HCPCS: 80053; 80061 ==

== ENCOUNTER → 2021-02-12 07:55 | Outpatient (BNVA) | payer MEDICARE, SELFPAY | PROVIDERS: PCP Family Medicine; Visit Provider Specialist | DX: R20.9 Unspecified disturbances of skin sensation (principal); I69.398 Other sequelae of cerebral infarction; G45.0 Vertebro-basilar artery syndrome; Z87.891 Personal history of nicotine dependence | CPT/HCPCS: 99214 ==

== ENCOUNTER → 2021-05-22 08:25 | Outpatient (BNVA) | payer MEDICARE, SELFPAY | PROVIDERS: PCP Family Medicine; Visit Provider Family Medicine | DX: E11.40 Type 2 diabetes mellitus with diabetic neuropathy, unspecified (principal); E11.22 Type 2 diabetes mellitus with diabetic chronic kidney disease; E78.5 Hyperlipidemia, unspecified; E78.6 Lipoprotein deficiency; I10 Essential (primary) hypertension; N18.32 Chronic kidney disease, stage 3b; Z79.4 Long term (current) use of insulin | CPT/HCPCS: 80053; 80061; 80069; 82043; 83036; 85025 ==

== ENCOUNTER → 2021-09-11 10:25 | Outpatient (BNVA) | payer MEDICARE, SELFPAY | PROVIDERS: PCP Family Medicine; Visit Provider Family Medicine | DX: E11.40 Type 2 diabetes mellitus with diabetic neuropathy, unspecified (principal); Z79.4 Long term (current) use of insulin; R25.2 Cramp and spasm; D50.9 Iron deficiency anemia, unspecified; Z86.39 Personal history of other endocrine, nutritional and metabolic disease; E11.621 Type 2 diabetes mellitus with foot ulcer; L97.519 Non-pressure chronic ulcer of other part of right foot with unspecified severity | CPT/HCPCS: 80053; 82306; 82728; 83036; 83550; 83735; 85025 ==

== ENCOUNTER 2021-09-15 14:22 | Outpatient (CLI) | payer MEDICARE, SELFPAY | END 2021-09-15 14:23 | disposition home or self-care (01) | LOC: WOUND 14:23 | PROVIDERS: PCP Family Medicine; Visit Provider Nurse Practitioner Family | DX: E11.621 Type 2 diabetes mellitus with foot ulcer (principal); L97.512 Non-pressure chronic ulcer of other part of right foot with fat layer exposed; Z87.891 Personal history of nicotine dependence | CPT/HCPCS: 11042; G0463 ==

== ENCOUNTER 2021-09-22 14:47 | Outpatient (CLI) | payer MEDICARE, SELFPAY | END 2021-09-22 14:48 | disposition home or self-care (01) | LOC: WOUND 14:47 | PROVIDERS: PCP Family Medicine; Visit Provider Emergency Medicine | DX: E11.621 Type 2 diabetes mellitus with foot ulcer (principal); L97.512 Non-pressure chronic ulcer of other part of right foot with fat layer exposed; Z87.891 Personal history of nicotine dependence; I10 Essential (primary) hypertension | CPT/HCPCS: 11042 ==

== ENCOUNTER 2021-09-29 09:53 | Outpatient (CLI) | payer MEDICARE, SELFPAY | END 2021-09-29 09:54 | disposition home or self-care (01) | LOC: WOUND 09:54 | PROVIDERS: PCP Family Medicine; Visit Provider Nurse Practitioner Family | DX: Z09 Encounter for follow-up examination after completed treatment for conditions other than malignant neoplasm (principal); Z87.891 Personal history of nicotine dependence | CPT/HCPCS: 99212 ==

== ENCOUNTER → 2021-10-02 08:12 | Outpatient (BNVA) | payer MEDICARE, SELFPAY | PROVIDERS: PCP Family Medicine; Visit Provider Internal Medicine | DX: E11.40 Type 2 diabetes mellitus with diabetic neuropathy, unspecified (principal); E11.319 Type 2 diabetes mellitus with unspecified diabetic retinopathy without macular edema; E11.22 Type 2 diabetes mellitus with diabetic chronic kidney disease; N18.30 Chronic kidney disease, stage 3 unspecified; Z79.4 Long term (current) use of insulin | CPT/HCPCS: 99214 ==

== ENCOUNTER 2021-11-10 14:28 | Outpatient (CLI) | payer MEDICARE, SELFPAY | END 2021-11-10 14:29 | disposition home or self-care (01) | LOC: WOUND 14:29 | PROVIDERS: PCP Family Medicine; Visit Provider Nurse Practitioner Family | DX: I96 Gangrene, not elsewhere classified (principal); E11.621 Type 2 diabetes mellitus with foot ulcer; L97.412 Non-pressure chronic ulcer of right heel and midfoot with fat layer exposed; Z87.891 Personal history of nicotine dependence; Z89.421 Acquired absence of other right toe(s) | CPT/HCPCS: 11042; 73630; G0463 ==

== ENCOUNTER 2021-11-10 15:49 | Outpatient (CLI) | payer MEDICARE, SELFPAY ==
--- NOTE | 2021-11-10 15:59 | XR_ITS ---
WS: [id number] Exam: XR foot RT min 3V* [id number] Date/Time of Exam: 11/10/2021 3:59 PM Reason For Exam: DM 2 with foot ulcer Comparison 01/03/2020. No acute fracture or dislocation. There has been amputation of the great toe as well as the second to e. There is soft tissue edema within this area. No bone destruction is seen to suggest acute osteomye litis. No soft tissue foreign bodies. XR/XR foot RT min 3V* [id number] IMPRESSION: 1. No acute fracture. 2. Amputation of the first and second toes with soft tissue edema within this a irina. No soft tissue gas or bone destruction.
== END 2021-11-10 15:50 | disposition home or self-care (01) ==
LOC: RAD 15:53
PROVIDERS: PCP Family Medicine; Visit Provider Nurse Practitioner Family
DX: E11.621 Type 2 diabetes mellitus with foot ulcer (principal); Z89.421 Acquired absence of other right toe(s)
CPT/HCPCS: 73630

== ENCOUNTER 2021-11-13 14:14 | Outpatient (CLI) | payer MEDICARE, SELFPAY | END 2021-11-13 14:15 | disposition home or self-care (01) | LOC: SPT 14:15 | PROVIDERS: PCP Family Medicine; Visit Provider Nurse Practitioner Family | DX: R26.89 Other abnormalities of gait and mobility (principal); E11.621 Type 2 diabetes mellitus with foot ulcer | CPT/HCPCS: 97760 ==

== ENCOUNTER 2021-11-17 14:18 | Outpatient (CLI) | payer MEDICARE, SELFPAY | END 2021-11-17 14:19 | disposition home or self-care (01) | LOC: WOUND 14:19 | PROVIDERS: PCP Family Medicine; Visit Provider Nurse Practitioner Family | DX: E11.621 Type 2 diabetes mellitus with foot ulcer (principal); L97.412 Non-pressure chronic ulcer of right heel and midfoot with fat layer exposed; Z87.891 Personal history of nicotine dependence | CPT/HCPCS: 11042 ==

== ENCOUNTER 2021-11-25 09:29 | Outpatient (CLI) | payer MEDICARE, SELFPAY | END 2021-11-25 09:30 | disposition home or self-care (01) | LOC: WOUND 09:32 | PROVIDERS: PCP Family Medicine; Visit Provider Nurse Practitioner Family | DX: I96 Gangrene, not elsewhere classified (principal); E11.621 Type 2 diabetes mellitus with foot ulcer; L97.512 Non-pressure chronic ulcer of other part of right foot with fat layer exposed; Z87.891 Personal history of nicotine dependence; E78.5 Hyperlipidemia, unspecified; E78.6 Lipoprotein deficiency; E11.22 Type 2 diabetes mellitus with diabetic chronic kidney disease; N18.32 Chronic kidney disease, stage 3b; E11.40 Type 2 diabetes mellitus with diabetic neuropathy, unspecified; E55.9 Vitamin D deficiency, unspecified; Z79.4 Long term (current) use of insulin; I10 Essential (primary) hypertension | CPT/HCPCS: 11042; 80053; 80061; 80069; 82043; 82306; 82310; 83970; 85025 ==

== ENCOUNTER 2021-12-02 09:26 | Outpatient (CLI) | payer MEDICARE, SELFPAY | END 2021-12-02 09:27 | disposition home or self-care (01) | LOC: WOUND 09:27 | PROVIDERS: PCP Family Medicine; Visit Provider Emergency Medicine | DX: E11.621 Type 2 diabetes mellitus with foot ulcer (principal); L97.412 Non-pressure chronic ulcer of right heel and midfoot with fat layer exposed; Z87.891 Personal history of nicotine dependence | CPT/HCPCS: 11042; 99212 ==

== ENCOUNTER 2021-12-05 07:38 | Outpatient (CLI) | payer MEDICARE, SELFPAY ==
--- NOTE | 2021-12-05 07:41 | NM_ITS ---
WS: [id number] NUCLEAR MEDICINE BONE SCAN 3 PHASE Radiopharmaceutical: 25 Tc-99m MDP mCi IV Injection site: Right antecubital Postinjection imaging delay: 2 hr CLINICAL INFORMATION: DM2 W/FOOT ULCER COMPARISON: November 10, 2021 radiograph FINDINGS: Bone lesions: Prior postoperative changes amputation of the second digits at the MTP joint. Amputatio n of the first digits including the head of the first metatarsal. Increased blood flow, blood pool, a nd delayed skeletal activity involving the residual first metatarsal distally and second metatarsal h ead suspicious for osteomyelitis. Soft tissue contours: Normal. Kidneys: Normal. Other findings: Degenerative type uptake involving both AC joints, sternoclavicular joints, and lower lumbar spine. NM/NM bone 3 phase [id number] IMPRESSION: 1. Matching three-phase activity involving the residual first metatarsal dista lly and second metatarsal head suspicious for osteomyelitis. 2. Increased blood flow and blood pool activity involving the dorsal forefoot compatible with cellulitis.
== END 2021-12-05 07:39 | disposition home or self-care (01) ==
LOC: RAD 07:39
PROVIDERS: PCP Family Medicine; Visit Provider Nurse Practitioner Family
DX: E11.621 Type 2 diabetes mellitus with foot ulcer (principal)
CPT/HCPCS: 78315; A9561

== ENCOUNTER 2021-12-09 15:07 | Outpatient (CLI) | payer MEDICARE, SELFPAY | END 2021-12-09 15:08 | disposition home or self-care (01) | LOC: WOUND 15:08 | PROVIDERS: PCP Family Medicine; Visit Provider Emergency Medicine | DX: E11.621 Type 2 diabetes mellitus with foot ulcer (principal); L97.412 Non-pressure chronic ulcer of right heel and midfoot with fat layer exposed; I10 Essential (primary) hypertension; Z87.891 Personal history of nicotine dependence | CPT/HCPCS: 11042; 80048; 99212 ==

== ENCOUNTER 2021-12-09 17:51 | Outpatient (CLI) | payer MEDICARE, SELFPAY ==
[2021-12-09 18:43] LABS: Anion Gap 18.7 (5-19); Blood Urea Nitrogen 35 mg/dL (6-20); Calcium 8.8 mg/dL (8.5-10.5); Carbon Dioxide 20 mmol/L (22-29); Chloride 99 mmol/L (98-107); Glucose 187 mg/dL (65-115); Osmolality Calculated 289 mOsm/kg (285-295); Potassium 4.7 mmol/L (3.5-5.1); Sodium 133 mmol/L (136-145)
== END 2021-12-09 17:52 | disposition home or self-care (01) ==
LOC: LAB 17:53
PROVIDERS: PCP Family Medicine; Visit Provider Emergency Medicine
DX: E11.621 Type 2 diabetes mellitus with foot ulcer (principal)
CPT/HCPCS: 80048

== ENCOUNTER 2021-12-29 16:09 | Outpatient (CLI) | payer MEDICARE, SELFPAY ==
[2021-12-29 16:49] LABS: Basophils # 0.1 10^3/uL (0.0-0.1); Basophils % 0.8 %; Eosinophils # 0.1 10^3/uL (0.0-0.8); Eosinophils % 2.1 %; Hematocrit 32.2 % (37.0-47.0); Hemoglobin 10.2 g/dL (11.5-15.3); Lymphocytes # 1.9 10^3/uL (0.8-4.8); Lymphocytes % 29.2 %; Mean Corpuscular HGB Conc 31.7 g/dL (30.0-36.0); Mean Corpuscular Hemoglobin 27.4 pg (28.0-34.0); Mean Corpuscular Volume 86.6 fl (81-99); Mean Platelet Volume 12.2 fL (7.4-10.4); Monocytes # 0.6 10^3/uL (0.2-0.9); Monocytes % 8.5 %; Neutrophils # 3.87 10^3/uL (1.8-7.7); Neutrophils % 59.1 %; Nucleated Red Blood Cells % 0 %; Platelet Count 108 10^3/cmm (130-400); Red Blood Count 3.72 10^6/uL (4.1-5.3); Red Cell Distribution Width 12.6 % (12.1-15.1); White Blood Count 6.6 10^3/uL (4.0-10.0)
[2021-12-29 17:05] LABS: Alanine Aminotransferase 38 U/L (0-33); Albumin Level 4.6 g/dL (3.5-5.2); Alkaline Phosphatase 71 IU/L (35-105); Anion Gap 20.5 (5-19); Aspartate Amino Transferase 32 U/L (0-32); Blood Urea Nitrogen 44 mg/dL (6-20); Calcium 9.1 mg/dL (8.5-10.5); Carbon Dioxide 20 mmol/L (22-29); Chloride 103 mmol/L (98-107); Glomerular Filtration Rate 21.7 mL/min (90-130); Glucose 148 mg/dL (65-115); Osmolality Calculated 300 mOsm/kg (285-295); Potassium 5.5 mmol/L (3.5-5.1); Sodium 138 mmol/L (136-145); Total Bilirubin 0.2 mg/dL (0.15-1.2); Total Protein 6.6 g/dL (6.6-8.7)
== END 2021-12-29 16:10 | disposition home or self-care (01) ==
LOC: LAB 16:11
PROVIDERS: PCP Family Medicine; Visit Provider Emergency Medicine
DX: E11.621 Type 2 diabetes mellitus with foot ulcer (principal)
CPT/HCPCS: 80053; 85025

== ENCOUNTER 2022-01-01 09:30 | Outpatient (CLI) | payer MEDICARE, SELFPAY | END 2022-01-01 09:31 | disposition home or self-care (01) | LOC: WOUND 09:49 | PROVIDERS: PCP Family Medicine; Visit Provider Nurse Practitioner Family | DX: E11.621 Type 2 diabetes mellitus with foot ulcer (principal); L97.412 Non-pressure chronic ulcer of right heel and midfoot with fat layer exposed; Z87.891 Personal history of nicotine dependence | CPT/HCPCS: 11042 ==

== ENCOUNTER 2022-01-06 11:01 | Outpatient (CLI) | payer MEDICARE, SELFPAY ==
[2022-01-06 11:28] LABS: Basophils # 0.1 10^3/uL (0.0-0.1); Basophils % 0.6 %; Eosinophils # 0.2 10^3/uL (0.0-0.8); Eosinophils % 1.5 %; Hematocrit 33.7 % (37.0-47.0); Hemoglobin 10.4 g/dL (11.5-15.3); Lymphocytes # 1.8 10^3/uL (0.8-4.8); Lymphocytes % 15.1 %; Mean Corpuscular HGB Conc 30.9 g/dL (30.0-36.0); Mean Corpuscular Hemoglobin 27.1 pg (28.0-34.0); Mean Corpuscular Volume 87.8 fl (81-99); Mean Platelet Volume 12.5 fL (7.4-10.4); Monocytes # 1.3 10^3/uL (0.2-0.9); Monocytes % 11.2 %; Neutrophils # 8.07 10^3/uL (1.8-7.7); Neutrophils % 69.1 %; Nucleated Red Blood Cells % 0.2 %; Platelet Count 168 10^3/cmm (130-400); Red Blood Count 3.84 10^6/uL (4.1-5.3); Red Cell Distribution Width 12.5 % (12.1-15.1); White Blood Count 11.7 10^3/uL (4.0-10.0)
[2022-01-06 12:07] LABS: Alanine Aminotransferase 27 U/L (0-33); Albumin Level 4.8 g/dL (3.5-5.2); Alkaline Phosphatase 74 IU/L (35-105); Anion Gap 19.6 (5-19); Aspartate Amino Transferase 20 U/L (0-32); Blood Urea Nitrogen 29 mg/dL (6-20); Calcium 8.6 mg/dL (8.5-10.5); Carbon Dioxide 20 mmol/L (22-29); Chloride 103 mmol/L (98-107); Globulin 2.7 g/dL (1.3-4.6); Glucose 160 mg/dL (65-115); Osmolality Calculated 295 mOsm/kg (285-295); Potassium 4.6 mmol/L (3.5-5.1); Sodium 138 mmol/L (136-145); Total Bilirubin 0.2 mg/dL (0.15-1.2); Total Protein 7.5 g/dL (6.6-8.7)
== END 2022-01-06 11:02 | disposition home or self-care (01) ==
PROVIDERS: PCP Family Medicine; Visit Provider Emergency Medicine
DX: E11.621 Type 2 diabetes mellitus with foot ulcer (principal)
CPT/HCPCS: 80053; 85025

== ENCOUNTER 2022-01-06 11:58 | Outpatient (CLI) | payer MEDICARE, SELFPAY ==
--- NOTE | 2022-01-06 16:35 | ONC CON_ITS ---
Dr. Childs New Patient Note Patient: Misti Abbott Unit #: [id number]: [id number] Dicatated By: Amilcar Childs M.D.Date of Visit: Jan 06, 2022 Onc MED New Patient/Consult Referring Physician: Val Arthur Chief Complaint: Anemia and thrombocytopenia. History of Present Illness: This is a 61-year-old woman with mild anemia and mild thrombocytopenia. She has multiple medical illnesses including hypertension, hyperlipidemia, type 2 diabetes, and chronic kidney disease. She has diabetic associated peripheral neuropathy and diabetic retinopathy. She also has a prior history of brainstem stroke. She has been going to wound care for management of a diabetic ulceration on the right plantar foot. Her bone scan on 12/05/2021 showed matching 3-phase activity involving the residual first metatarsal distally and the second metatarsal head which was suspicious for osteomyelitis. She began on antibiotic coverage with linezolid. The linezolid was put on hold 1 week ago with her CBC showing a decline in the platelet count to 108,000 compared to 255,000 on 11/25/2021. Over that same interval the hemoglobin dropped from 12.3 to 10.2 g. The white blood cell count remained normal at 6600 with absolute neutrophil count 3800. During that time there was decline in the renal function with creatinine increasing from 1.6 mg/dL to 2.3 mg/dL. She complains that she feels tired, but she says she does lots of housework and she walks on the treadmill every day. Her ECOG score is 1. Her appetite is not very good. She says she makes herself eat, but her weight has been stable. She does not have fever or night sweats. She says her eyesight is bad, and she is getting treatment with Dr. Benavides. She has had a drippy nose for a month. She has not had sore mouth or throat. She does not complain of cough. Her breathing is labored with activity. She has not been having chest pain. She has no GI complaints. She has urinary frequency and nocturia. She reports having a lot of muscle cramps including her hands, her legs and feet, and sometimes her neck. She rarely has headache. She does complain of dizziness. She has neuropathy in her legs and feet. She has had numbness in the right hand since her stroke. She also has been having burning in her anterior right thigh. Yesterday she developed a burning pain radiating from her left foot up to her left hip and across both hips, but that seems to have resolved. She has not had any abnormal bruising or other bleeding manifestations. Past Medical History: Her medical history includes chronic kidney disease, history of cerebellar stroke, history of depression, history of iron deficiency anemia, hyperlipidemia, hypertension, peripheral neuropathy, and type II diabetes. Past Surgical History: Her surgical/procedural history includes amputation of 1st and 2nd right toes, EGD and colonoscopy in 2019, tubal ligation in 1990, and subdural hematoma in 1964. Medications: Aspirin 1 Tablet (of 81 mg) Tablet, enteric coated Oral daily, Crestor 1 Tablet (of 10 mg) Oral daily, Lantus 12 Unit(s) (of 100 Units/mL) Subcutaneous at bedtime, Lisinopril 1 Tablet (of 2.5 mg) Oral daily, NovoLOG 2 Unit(s) (of 100 Units/mL) Subcutaneous PRN, Plavix 1 Tablet (of 75 mg) Oral daily, Tradjenta 1 Tablet (of 5 mg) Oral daily, Vitamin D 1 Capsule (of 5000 International Unit(s)) Oral daily Allergies: Codeine Sulfate and Penicillins. Social History: Ms. Abbott is . She has a history of smoking 1 pack of cigarettes daily for 16 years. She quit smoking in 1999. She does not drink alcohol, and she has had just occasional alcohol use in the past. Family History: Her family history is pretty much unknown to her, though both parents are . Review Of Symptoms: Constitutional - She complains that she feels tired. She does walk on the treadmill daily and she does lots of housework. Her appetite is not very good. She says she makes herself eat, but her weight is stable. She does not have fever or night sweats. ECOG score is 1, Eyes - She has diabetic retinopathy. She gets treatment from Dr. Benavides, ENMT - No hearing loss. She has tinnitus. She has had a drippy nose for a month. No mouth sores. No sore throat or difficulty swallowing, Hematologic/Lymphatic - No abnormal bruising or bleeding, Respiratory - Her breathing is labored with activity. No cough. No pleuritic pain or hemoptysis, Cardiovascular - No angina pain. No palpitations, Gastrointestinal - No nausea or vomiting. No heartburn or acid reflux. No diarrhea or constipation. No blood in the stool or black stools, Genitourinary (F) - No dysuria or hematuria. She has urinary frequency and nocturia. No urgency or incontinence, Musculoskeletal - She has a lot of muscle cramps including her hands, her legs and feet, and sometimes her neck, Integumentary - She has been undergoing treatment at wound care for diabetic ulceration on the right foot, Neurologic - She rarely has headache, but she does have dizziness. She has neuropathy in both legs and feet. She has residual numbness in her right arm and hand following the previous stroke, Psychiatric - She does not complain of anxiety or depression, but she does have a history of depression in the past. She has difficulty sleeping. Vital Signs: Performed on Jan 06, 2022 13:31: 6, 0, 27.38, 2.00 sq.m, 69 in, 94 % (LOW), 100 /min, 18 /min, 121/69 mm(hg), 98.0 F (LOW), and 185.4 lbs (HIGH). Physical Examination: Constitutional - She appears somewhat weak generally, Eyes - Sclerae nonicteric. Conjunctivae clear, ENMT - No lesions noted in the oral cavity, Neck - No mass or thyromegaly, Hematologic/Lymphatic - No cervical, clavicular, or axillary adenopathy, Respiratory - Lungs are clear with good air movement bilaterally, Cardiovascular - Heart rhythm is regular. There is no murmur, gallop, or rub noted, Abdomen - Soft. Liver and spleen are not enlarged. There is no abdominal mass or ascites noted and there is no inguinal adenopathy, Back/Spine - No spine or CVA tenderness noted, Extremities - No edema. She has good dorsalis pedis pulses bilaterally, Integumentary - There is an ulceration on the plantar aspect of the right foot in the metatarsal region. There are no suspicious skin lesions noted, Neurologic - She has a broad-based gait, and she has limited mobility. Lab/Imaging: Her laboratory studies done earlier today included CBC showing hemoglobin stable at 10.4 g with white blood cell count slightly elevated at 11,700 and platelet count normal at 168,000. Comprehensive metabolic profile showed BUN 29 and creatinine 1.6 mg/dL, similar to the prior study from 12/09/2021. Bilirubin and liver enzymes were normal. Problem List: 1. Mild anemia and mild thrombocytopenia. This is presumed secondary to linezolid, though there may be other contributing factors to the anemia. 2. Type 2 diabetes with diabetic ulceration of the right plantar foot and associated osteomyelitis. 3. Hypertension. 4. Hyperlipidemia. 5. Chronic kidney disease. 6. History of brainstem stroke. 7. History of iron deficiency anemia. 8. History of depression. Problems Addressed with this Encounter and Plan: Patient with mild anemia and mild thrombocytopenia. This is presumed secondary to linezolid, though there may be other contributing factors to the anemia. She had stopped the medication 1 week ago, and the platelet count has already recovered to normal. As her blood counts were still just mildly decreased, I do not really see a problem and putting her back on the linezolid and monitoring her blood count weekly. I am actually more concerned about the fact that her renal function had declined significantly. It has now recovered to baseline, but it also will require close monitoring. She is going to restart the medication now and next week I will begin monitoring the blood count and basic metabolic profile weekly. I will tentatively plan a follow-up visit in 4 weeks. Signed By: Amilcar Childs M.D. <<Signature on File>>
== END 2022-01-06 11:59 | disposition home or self-care (01) ==
LOC: ONCMED 12:06
PROVIDERS: PCP Family Medicine; Visit Provider Internal Medicine Medical Oncology
DX: D69.6 Thrombocytopenia, unspecified (principal); E11.621 Type 2 diabetes mellitus with foot ulcer; L97.419 Non-pressure chronic ulcer of right heel and midfoot with unspecified severity; I12.9 Hypertensive chronic kidney disease with stage 1 through stage 4 chronic kidney disease, or unspecified chronic kidney disease; E11.22 Type 2 diabetes mellitus with diabetic chronic kidney disease; N18.9 Chronic kidney disease, unspecified; E78.5 Hyperlipidemia, unspecified; Z79.899 Other long term (current) drug therapy
CPT/HCPCS: 80053; 85025; 99204

== ENCOUNTER 2022-01-08 09:24 | Outpatient (CLI) | payer MEDICARE, SELFPAY | END 2022-01-08 09:25 | disposition home or self-care (01) | LOC: WOUND 09:26 | PROVIDERS: PCP Family Medicine; Visit Provider Emergency Medicine | DX: E11.621 Type 2 diabetes mellitus with foot ulcer (principal); L97.412 Non-pressure chronic ulcer of right heel and midfoot with fat layer exposed; Z87.891 Personal history of nicotine dependence | CPT/HCPCS: 11042 ==

== ENCOUNTER → 2022-01-12 09:08 | Outpatient (BNVA) | payer MEDICARE, SELFPAY | PROVIDERS: PCP Family Medicine; Visit Provider Internal Medicine | DX: E11.40 Type 2 diabetes mellitus with diabetic neuropathy, unspecified (principal); E11.319 Type 2 diabetes mellitus with unspecified diabetic retinopathy without macular edema; E11.22 Type 2 diabetes mellitus with diabetic chronic kidney disease; N18.30 Chronic kidney disease, stage 3 unspecified; Z79.4 Long term (current) use of insulin; Z87.891 Personal history of nicotine dependence; E11.621 Type 2 diabetes mellitus with foot ulcer; L97.512 Non-pressure chronic ulcer of other part of right foot with fat layer exposed | CPT/HCPCS: 97597; 99214 ==

== ENCOUNTER 2022-01-12 13:04 | Outpatient (CLI) | payer MEDICARE, SELFPAY | END 2022-01-12 13:05 | disposition home or self-care (01) | LOC: WOUND 13:06 | PROVIDERS: PCP Family Medicine; Visit Provider Thoracic Surgery (Cardiothoracic Vascular Surgery) | DX: E11.621 Type 2 diabetes mellitus with foot ulcer (principal); L97.512 Non-pressure chronic ulcer of other part of right foot with fat layer exposed; Z87.891 Personal history of nicotine dependence | CPT/HCPCS: 97597 ==

== ENCOUNTER 2022-01-16 08:15 | Outpatient (CLI) | payer MEDICARE, SELFPAY ==
[2022-01-16 09:00] LABS: Basophils # 0.1 10^3/uL (0.0-0.1); Basophils % 0.8 %; Eosinophils # 0.2 10^3/uL (0.0-0.8); Eosinophils % 2.3 %; Hematocrit 32.4 % (37.0-47.0); Hemoglobin 10.1 g/dL (11.5-15.3); Lymphocytes # 1.5 10^3/uL (0.8-4.8); Lymphocytes % 19.4 %; Mean Corpuscular HGB Conc 31.2 g/dL (30.0-36.0); Mean Corpuscular Hemoglobin 26.9 pg (28.0-34.0); Mean Corpuscular Volume 86.2 fl (81-99); Mean Platelet Volume 10.7 fL (7.4-10.4); Monocytes # 0.7 10^3/uL (0.2-0.9); Monocytes % 8.3 %; Neutrophils # 5.42 10^3/uL (1.8-7.7); Neutrophils % 68.9 %; Nucleated Red Blood Cells % 0 %; Platelet Count 285 10^3/cmm (130-400); Red Blood Count 3.76 10^6/uL (4.1-5.3); Red Cell Distribution Width 13.3 % (12.1-15.1); White Blood Count 7.9 10^3/uL (4.0-10.0)
[2022-01-16 09:07] LABS: Estmated Average Glucose 157; Hemoglobin A1C 7.1 % (4.0-6.0)
[2022-01-16 09:23] LABS: Blood Urea Nitrogen 46 mg/dL (6-20); Calcium 9.6 mg/dL (8.5-10.5); Carbon Dioxide 18 mmol/L (22-29); Chloride 103 mmol/L (98-107); Glomerular Filtration Rate 25.5 mL/min (90-130); Glucose 159 mg/dL (65-115); Osmolality Calculated 291 mOsm/kg (285-295); Sodium 133 mmol/L (136-145)
== END 2022-01-16 08:16 | disposition home or self-care (01) ==
PROVIDERS: Internal Medicine; PCP Family Medicine; Visit Provider Internal Medicine Medical Oncology
DX: D64.9 Anemia, unspecified (principal); D69.6 Thrombocytopenia, unspecified; E11.621 Type 2 diabetes mellitus with foot ulcer; Z79.899 Other long term (current) drug therapy; L97.412 Non-pressure chronic ulcer of right heel and midfoot with fat layer exposed; Z87.891 Personal history of nicotine dependence
CPT/HCPCS: 11042; 36415; 80048; 83036; 85025

== ENCOUNTER 2022-01-16 09:35 | Outpatient (CLI) | payer MEDICARE, SELFPAY | END 2022-01-16 09:36 | disposition home or self-care (01) | LOC: WOUND 09:36 | PROVIDERS: PCP Family Medicine; Visit Provider Surgery | DX: E11.621 Type 2 diabetes mellitus with foot ulcer (principal); L97.412 Non-pressure chronic ulcer of right heel and midfoot with fat layer exposed; Z87.891 Personal history of nicotine dependence | CPT/HCPCS: 11042; 36415; 80048; 83036; 85025 ==

== ENCOUNTER 2022-01-22 13:04 | Outpatient (CLI) | payer MEDICARE, SELFPAY ==
[2022-01-22 13:45] LABS: Basophils # 0.1 10^3/uL (0.0-0.1); Basophils % 0.7 %; Eosinophils # 0.2 10^3/uL (0.0-0.8); Eosinophils % 2.6 %; Hematocrit 30.4 % (37.0-47.0); Hemoglobin 9.6 g/dL (11.5-15.3); Lymphocytes % 28.5 %; Mean Corpuscular HGB Conc 31.6 g/dL (30.0-36.0); Mean Corpuscular Hemoglobin 26.7 pg (28.0-34.0); Mean Corpuscular Volume 84.7 fl (81-99); Mean Platelet Volume 10.8 fL (7.4-10.4); Monocytes % 14.6 %; Neutrophils # 3.73 10^3/uL (1.8-7.7); Neutrophils % 53.5 %; Nucleated Red Blood Cells % 0 %; Platelet Count 155 10^3/cmm (130-400); Red Blood Count 3.59 10^6/uL (4.1-5.3); Red Cell Distribution Width 13.5 % (12.1-15.1)
[2022-01-22 14:07] LABS: Alanine Aminotransferase 19 U/L (0-33); Albumin Level 4.7 g/dL (3.5-5.2); Alkaline Phosphatase 75 IU/L (35-105); Anion Gap 18.2 (5-19); Aspartate Amino Transferase 17 U/L (0-32); Blood Urea Nitrogen 31 mg/dL (6-20); Calcium 9.6 mg/dL (8.5-10.5); Carbon Dioxide 18 mmol/L (22-29); Chloride 100 mmol/L (98-107); Globulin 2.8 g/dL (1.3-4.6); Glomerular Filtration Rate 28.8 mL/min (90-130); Glucose 147 mg/dL (65-115); Osmolality Calculated 281 mOsm/kg (285-295); Potassium 5.2 mmol/L (3.5-5.1); Sodium 131 mmol/L (136-145); Total Bilirubin 0.2 mg/dL (0.15-1.2); Total Protein 7.5 g/dL (6.6-8.7)
== END 2022-01-22 13:05 | disposition home or self-care (01) ==
PROVIDERS: PCP Family Medicine; Visit Provider Internal Medicine Medical Oncology
DX: E11.621 Type 2 diabetes mellitus with foot ulcer (principal)
CPT/HCPCS: 36415; 80053; 85025

== ENCOUNTER 2022-01-22 14:29 | Outpatient (CLI) | payer MEDICARE, SELFPAY | END 2022-01-22 14:30 | disposition home or self-care (01) | LOC: WOUND 14:31 | PROVIDERS: PCP Family Medicine; Visit Provider Emergency Medicine | DX: E11.621 Type 2 diabetes mellitus with foot ulcer (principal); Z87.891 Personal history of nicotine dependence; L97.412 Non-pressure chronic ulcer of right heel and midfoot with fat layer exposed | CPT/HCPCS: 11042; 99212 ==

== ENCOUNTER → 2022-01-28 09:55 | Day surgery (SDC) | payer MEDICARE, SELFPAY ==
[2022-01-28 10:12] VITALS: BP 158/84; PULSE 84; RESP 18; TEMP 36.2; O2SAT 100
[2022-01-28] MEDS: dalbavancin 1,500 MG in dextrose 5% 250 ML 500 MG IV (10:37)
== END ==
PROVIDERS: PCP Family Medicine; Visit Provider Emergency Medicine
DX: E11.621 Type 2 diabetes mellitus with foot ulcer (principal)
CPT/HCPCS: 96365; J0875

== ENCOUNTER 2022-01-29 13:47 | Outpatient (CLI) | payer MEDICARE, SELFPAY ==
[2022-01-29 14:34] LABS: Basophils % 0.7 %; Eosinophils # 0.2 10^3/uL (0.0-0.8); Eosinophils % 3.1 %; Hematocrit 30.1 % (37.0-47.0); Hemoglobin 9.6 g/dL (11.5-15.3); Lymphocytes # 1.4 10^3/uL (0.8-4.8); Lymphocytes % 23.6 %; Mean Corpuscular HGB Conc 31.9 g/dL (30.0-36.0); Mean Corpuscular Hemoglobin 27.7 pg (28.0-34.0); Mean Corpuscular Volume 86.7 fl (81-99); Mean Platelet Volume 12.2 fL (7.4-10.4); Monocytes # 0.8 10^3/uL (0.2-0.9); Monocytes % 12.6 %; Neutrophils # 3.65 10^3/uL (1.8-7.7); Neutrophils % 59.8 %; Nucleated Red Blood Cells % 0 %; Platelet Count 198 10^3/cmm (130-400); Red Blood Count 3.47 10^6/uL (4.1-5.3); Red Cell Distribution Width 14.7 % (12.1-15.1); White Blood Count 6.1 10^3/uL (4.0-10.0)
[2022-01-29 14:49] LABS: Anion Gap 16.8 (5-19); Blood Urea Nitrogen 32 mg/dL (6-20); Calcium 9.4 mg/dL (8.5-10.5); Carbon Dioxide 22 mmol/L (22-29); Chloride 104 mmol/L (98-107); Glucose 193 mg/dL (65-115); Osmolality Calculated 298 mOsm/kg (285-295); Potassium 4.8 mmol/L (3.5-5.1); Sodium 138 mmol/L (136-145)
== END 2022-01-29 13:48 | disposition home or self-care (01) ==
PROVIDERS: PCP Family Medicine; Visit Provider Internal Medicine Medical Oncology
DX: D69.6 Thrombocytopenia, unspecified (principal)
CPT/HCPCS: 36415; 80048; 85025

== ENCOUNTER 2022-01-29 14:53 | Outpatient (CLI) | payer MEDICARE, SELFPAY | END 2022-01-29 14:54 | disposition home or self-care (01) | LOC: WOUND 14:54 | PROVIDERS: PCP Family Medicine; Visit Provider Nurse Practitioner Family | DX: E11.621 Type 2 diabetes mellitus with foot ulcer (principal); L97.412 Non-pressure chronic ulcer of right heel and midfoot with fat layer exposed; Z87.891 Personal history of nicotine dependence | CPT/HCPCS: 11042 ==

== ENCOUNTER 2022-02-05 12:58 | Outpatient (CLI) | payer MEDICARE, SELFPAY ==
[2022-02-05 14:02] LABS: Basophils # 0.1 10^3/uL (0.0-0.1); Basophils % 0.8 %; Eosinophils # 0.2 10^3/uL (0.0-0.8); Eosinophils % 3.1 %; Hematocrit 34.9 % (37.0-47.0); Hemoglobin 10.8 g/dL (11.5-15.3); Lymphocytes # 1.8 10^3/uL (0.8-4.8); Lymphocytes % 23.2 %; Mean Corpuscular HGB Conc 30.9 g/dL (30.0-36.0); Mean Corpuscular Hemoglobin 27.2 pg (28.0-34.0); Mean Corpuscular Volume 87.9 fl (81-99); Mean Platelet Volume 11.5 fL (7.4-10.4); Monocytes # 0.8 10^3/uL (0.2-0.9); Monocytes % 9.9 %; Neutrophils # 4.73 10^3/uL (1.8-7.7); Neutrophils % 62.7 %; Nucleated Red Blood Cells % 0 %; Platelet Count 319 10^3/cmm (130-400); Red Blood Count 3.97 10^6/uL (4.1-5.3); Red Cell Distribution Width 14.6 % (12.1-15.1); White Blood Count 7.5 10^3/uL (4.0-10.0)
[2022-02-05 14:03] LABS: Reticulocyte % 1.7 % (0.5-2.0)
[2022-02-05 14:40] LABS: Alanine Aminotransferase 20 U/L (0-33); Albumin Level 4.6 g/dL (3.5-5.2); Alkaline Phosphatase 70 IU/L (35-105); Anion Gap 15.6 (5-19); Aspartate Amino Transferase 19 U/L (0-32); Blood Urea Nitrogen 28 mg/dL (6-20); Calcium 9.3 mg/dL (8.5-10.5); Carbon Dioxide 21 mmol/L (22-29); Chloride 104 mmol/L (98-107); Globulin 2.9 g/dL (1.3-4.6); Glucose 151 mg/dL (65-115); Iron 41 ug/dL (37-145); Lactate Dehydrogenase 177 U/L (135-214); Osmolality Calculated 290 mOsm/kg (285-295); Percent Saturation 13.2 % (20-50); Potassium 4.6 mmol/L (3.5-5.1); Sodium 136 mmol/L (136-145); Total Bilirubin 0.2 mg/dL (0.15-1.2); Total Iron Binding Capacity 309 mcg/dl; Total Protein 7.5 g/dL (6.6-8.7); Unsaturated Iron Binding 268 ug/dL (112-347); Vitamin B12 467 pg/mL (232-1245)
[2022-02-05 14:45] LABS: Folate Level 5.2 ng/mL (4.8-37.3)
--- NOTE | 2022-02-05 16:15 | ONC FU_ITS ---
Sue Maciel Progress Note Patient: Misti Abbott Unit #: [id number]: 1960 Dicatated By: Sue Maciel N.P.Date of Visit:Feb 05, 2022 Onc MED Follow-up/Prog Note Chief Complaint: Anemia and thrombocytopenia. History of Present Illness: This is a 61-year-old woman with mild anemia and mild thrombocytopenia. She has multiple medical illnesses including hypertension, hyperlipidemia, type 2 diabetes, and chronic kidney disease. She has diabetic associated peripheral neuropathy and diabetic retinopathy. She also has a prior history of brainstem stroke. She has been going to wound care for management of a diabetic ulceration on the right plantar foot. Her bone scan on 12/05/2021 showed matching 3-phase activity involving the residual first metatarsal distally and the second metatarsal head which was suspicious for osteomyelitis. She began on antibiotic coverage with linezolid. The linezolid was put on hold 1 week ago with her CBC showing a decline in the platelet count to 108,000 compared to 255,000 on 11/25/2021. Over that same interval the hemoglobin dropped from 12.3 to 10.2 g. The white blood cell count remained normal at 6600 with absolute neutrophil count 3800. During that time there was decline in the renal function with creatinine increasing from 1.6 mg/dL to 2.3 mg/dL. Patient presents today for follow-up of thrombocytopenia which was suspected to be caused by linezolid. She states that she discontinue that 2 weeks ago and has not resumed. She states that she feels much better. She continues to have fatigue but he has improved. Her appetite is good. She denies fever, chills, night sweats. She denies shortness of breath, wheezing, cough. No GI or problems. She continues to have right leg and right foot pain secondary to a diabetic ulcer that is currently being treated. She denies headache or dizziness. She states that she has been started on a new antibiotic called Dalvance. She had first treatment last week and tolerated it well Review Of Symptoms:See above. 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 Medications: Aspirin 1 Tablet (of 81 mg) Tablet, enteric coated Oral daily Crestor 1 Tablet (of 10 mg) Oral daily Lantus 12 Unit(s) (of 100 Units/mL) Subcutaneous at bedtime Lisinopril 1 Tablet (of 2.5 mg) Oral daily NovoLOG 2 Unit(s) (of 100 Units/mL) Subcutaneous PRN Plavix 1 Tablet (of 75 mg) Oral daily Tradjenta 1 Tablet (of 5 mg) Oral daily Vitamin D 1 Capsule (of 5000 International Unit(s)) Oral daily Family History: Ms. Abbott's mother is . Ms. Abbott's father is . Her family history is pretty much unknown to her, though both parents are . Social History: Ms. Abbott is . Ms. Abbott no longer smokes. She has no history of drinking. She has a history of smoking 1 pack of cigarettes daily for 16 years. She quit smoking in 1999. She does not drink alcohol, and she has had just occasional alcohol use in the past. Physical Examination: Performed on Feb 05, 2022 15:09: Height - 69.00 in, Weight - 186.6 lbs (HIGH), BSA - 2.01 sq.m, BMI - 27.56, Temperature - 97.2 F (LOW), Pulse - 93 /min, Respiration - 18 /min, BP - 133/84 mm(hg), O2 Sat - 98 %, Pain - 8, and Fatigue - 3. Performance Status: 1 - No physically strenuous activity, but ambulatory and able to carry out light or sedentary work (e.g. office work, light house work). (ECOG) Constitutional Alert, cooperative, oriented. Mood and affect appropriate. Appears close to chronological age. Well nourished. Well developed. Head Normocephalic; no scars. Eyes Conjunctivae and sclerae are clear and without icterus. Pupils are reactive and equal. Respiratory Lungs are clear to auscultation without rhonchi or wheezing. Cardiovascular Regular rate and rhythm of heart without murmurs, gallops or rubs. Extremities Dressing and walking boot on right foot Psychiatric Alert and oriented times three. Coherent speech. Verbalizes understanding of our discussions today. Laboratory: Test performed on Feb 05, 2022 13:47 Folate, Serum 5.2 ng/mL Iron 41 mcg/dL LDH (Total) 177 U/L Sodium 136 mmol/L Vitamin B12 467 pg/mL Iron Binding Capacity (TIBC) 309 mcg/dl Potassium 4.6 mmol/L % Iron Saturation 13.2 % Chloride 104 mmol/L CO2 21 mmol/L UIBC 268 mcg/dL Anion Gap 15.6 BUN 28 mg/dL Creatinine 1.6 mg/dL Cr Clearance (Est) 50.59 mL/min eGFR 33.0 mL/min Glucose 151 mg/dL Osmolality - Calculated 290 mOsm/kg Calcium 9.3 mg/dL Protein, Total 7.5 g/dL Albumin 4.6 g/dL Globulin 2.9 g/dL Bilirubin, Total 0.2 mg/dL ALT (SGPT) 20 U/L AST (SGOT) 19 U/L Alkaline Phosphatase 70 IU/L Retic Count % 1.7 % WBC 7.5 10 3/uL RBC 3.97 10 6/uL HGB 10.8 g/dL HCT 34.9 % MCV 87.9 fl MCH 27.2 pg MCHC 30.9 g/dL RDW 14.6 % Platelet Count 319 10 3/cmm MPV 11.5 fL Neutrophils 4.73 10 3/uL Lymphocytes 1.8 10 3/uL Monocytes 0.8 10 3/uL Eosinophils 0.2 10 3/uL Basophils 0.1 10 3/uL Neutrophil % 62.7 % Lymphocyte % 23.2 % Monocyte % 9.9 % Eosinophil % 3.1 % Basophils % 0.8 % NRBC % 0 % Impression: 1. Mild anemia and mild thrombocytopenia. This is presumed secondary to linezolid, though there may be other contributing factors to the anemia. 2. Type 2 diabetes with diabetic ulceration of the right plantar foot and associated osteomyelitis. 3. Hypertension. 4. Hyperlipidemia. 5. Chronic kidney disease. 6. History of brainstem stroke. 7. History of iron deficiency anemia. 8. History of depression. Plan: Patient with mild anemia and mild thrombocytopenia. This is presumed secondary to linezolid, though there may be other contributing factors to the anemia. She had stopped the medication approximately 2 weeks ago. She was started on Dalvance and has had her first infusion without approximately 1 week ago. Her labs are improving her WBC 7.5, hemoglobin 10.8 up from 9.6. Hematocrit 34.9 up from 30.1, and her platelet count is at 319,000 up from 198,000. There is also a concern about her renal function her BUN is slightly improved at 28 and her creatinine has remained stable at 1.6. With patient starting this new medication we will have her return to the clinic blood work in 2 weeks to further monitor her anemia and her renal function. Signed By: Sue Maciel N.P. <<Signature on File>> Did the same thing
[2022-02-06 09:23] LABS: PROTEIN, TOTAL 7.3 g/dL (6.1-8.1)
[2022-02-06 15:08] LABS: KAPPA LIGHT CHAIN, FREE, SERUM 46.5 mg/L (3.3-19.4); KAPPA/LAMBDA LIGHT CHAINS FREE 1.85 (0.26-1.65); LAMBDA LIGHT CHAIN, FREE, SERU 25.1 mg/L (5.7-26.3)
[2022-02-06 16:34] LABS: ALBUMIN 4.3 g/dL (3.8-4.8); ALPHA 1 GLOBULIN 0.3 g/dL (0.2-0.3); BETA 1 GLOBULIN 0.5 g/dL (0.4-0.6); BETA 2 GLOBULIN 0.3 g/dL (0.2-0.5); GAMMA GLOBULIN 0.9 g/dL (0.8-1.7)
== END 2022-02-05 12:59 | disposition home or self-care (01) ==
LOC: ONCMED 13:03
PROVIDERS: PCP Family Medicine; Visit Provider Nurse Practitioner Family
DX: D69.6 Thrombocytopenia, unspecified (principal); I10 Essential (primary) hypertension; E78.5 Hyperlipidemia, unspecified; N18.9 Chronic kidney disease, unspecified; D50.9 Iron deficiency anemia, unspecified; F32.A Depression, unspecified; Z79.899 Other long term (current) drug therapy; Z87.891 Personal history of nicotine dependence; Z86.73 Personal history of transient ischemic attack (TIA), and cerebral infarction without residual deficits
CPT/HCPCS: 36415; 80053; 82607; 82746; 83540; 83550; 83615; 83883; 84155; 84165; 85025; 85045; 99214; A6197

== ENCOUNTER 2022-02-05 13:56 | Outpatient (CLI) | payer MEDICARE, SELFPAY | END 2022-02-05 13:57 | disposition home or self-care (01) | LOC: WOUND 13:59 | PROVIDERS: PCP Family Medicine; Visit Provider Nurse Practitioner Family | DX: E11.621 Type 2 diabetes mellitus with foot ulcer (principal); L97.512 Non-pressure chronic ulcer of other part of right foot with fat layer exposed; Z87.891 Personal history of nicotine dependence | CPT/HCPCS: 11042 ==

== ENCOUNTER → 2022-02-12 13:43 | Outpatient (BNVA) | payer MEDICARE, SELFPAY | PROVIDERS: PCP Family Medicine; Visit Provider Nurse Practitioner Family | DX: E11.621 Type 2 diabetes mellitus with foot ulcer (principal); I96 Gangrene, not elsewhere classified; L97.412 Non-pressure chronic ulcer of right heel and midfoot with fat layer exposed; Z87.891 Personal history of nicotine dependence | CPT/HCPCS: 11042; A6197 ==

== ENCOUNTER → 2022-02-19 09:22 | Outpatient (BNVA) | payer MEDICARE, SELFPAY | PROVIDERS: PCP Family Medicine; Visit Provider Nurse Practitioner Family | DX: E11.621 Type 2 diabetes mellitus with foot ulcer (principal); I96 Gangrene, not elsewhere classified; L97.412 Non-pressure chronic ulcer of right heel and midfoot with fat layer exposed; Z87.891 Personal history of nicotine dependence | CPT/HCPCS: 11042; A6197; A6250 ==

== ENCOUNTER → 2022-02-26 09:35 | Outpatient (BNVA) | payer MEDICARE, SELFPAY | PROVIDERS: PCP Family Medicine; Visit Provider Nurse Practitioner Family | DX: E11.21 Type 2 diabetes mellitus with diabetic nephropathy (principal); L97.412 Non-pressure chronic ulcer of right heel and midfoot with fat layer exposed; I96 Gangrene, not elsewhere classified; Z87.891 Personal history of nicotine dependence | CPT/HCPCS: 11042 ==

== ENCOUNTER 2022-02-26 11:16 | Outpatient (CLI) | payer MEDICARE, SELFPAY ==
[2022-02-26 11:41] LABS: Basophils # 0.1 10^3/uL (0.0-0.1); Basophils % 0.9 %; Eosinophils # 0.9 10^3/uL (0.0-0.8); Eosinophils % 8.6 %; Hematocrit 38.6 % (37.0-47.0); Hemoglobin 12.1 g/dL (11.5-15.3); Lymphocytes # 2.4 10^3/uL (0.8-4.8); Lymphocytes % 23.7 %; Mean Corpuscular HGB Conc 31.3 g/dL (30.0-36.0); Mean Corpuscular Hemoglobin 26.8 pg (28.0-34.0); Mean Corpuscular Volume 85.6 fl (81-99); Mean Platelet Volume 11.6 fL (7.4-10.4); Monocytes % 9.3 %; Neutrophils # 5.84 10^3/uL (1.8-7.7); Neutrophils % 57.1 %; Nucleated Red Blood Cells % 0 %; Platelet Count 237 10^3/cmm (130-400); Red Blood Count 4.51 10^6/uL (4.1-5.3); Red Cell Distribution Width 13.7 % (12.1-15.1); White Blood Count 10.2 10^3/uL (4.0-10.0)
[2022-02-26 12:02] LABS: Alanine Aminotransferase 19 U/L (0-33); Albumin Level 4.6 g/dL (3.5-5.2); Alkaline Phosphatase 71 IU/L (35-105); Anion Gap 16.1 (5-19); Aspartate Amino Transferase 19 U/L (0-32); Blood Urea Nitrogen 33 mg/dL (6-20); Calcium 9.9 mg/dL (8.5-10.5); Carbon Dioxide 21 mmol/L (22-29); Chloride 103 mmol/L (98-107); Globulin 3.4 g/dL (1.3-4.6); Glucose 131 mg/dL (65-115); Osmolality Calculated 289 mOsm/kg (285-295); Potassium 5.1 mmol/L (3.5-5.1); Sodium 135 mmol/L (136-145); Total Bilirubin 0.2 mg/dL (0.15-1.2)
--- NOTE | 2022-03-02 16:23 | ONC FU_ITS ---
Sue Maciel Progress Note Patient: Misti Abbott Unit #: [id number]: 1960 Dicatated By: Sue Maciel N.P.Date of Visit:Feb 26, 2022 Onc MED Follow-up/Prog Note Chief Complaint: Anemia and thrombocytopenia. History of Present Illness: This is a 61-year-old woman with mild anemia and mild thrombocytopenia. She has multiple medical illnesses including hypertension, hyperlipidemia, type 2 diabetes, and chronic kidney disease. She has diabetic associated peripheral neuropathy and diabetic retinopathy. She also has a prior history of brainstem stroke. She has been going to wound care for management of a diabetic ulceration on the right plantar foot. Her bone scan on 12/05/2021 showed matching 3-phase activity involving the residual first metatarsal distally and the second metatarsal head which was suspicious for osteomyelitis. She began on antibiotic coverage with linezolid. The linezolid was put on hold 1 week ago with her CBC showing a decline in the platelet count to 108,000 compared to 255,000 on 11/25/2021. Over that same interval the hemoglobin dropped from 12.3 to 10.2 g. The white blood cell count remained normal at 6600 with absolute neutrophil count 3800. During that time there was decline in the renal function with creatinine increasing from 1.6 mg/dL to 2.3 mg/dL. Patient presents today for follow-up of thrombocytopenia which was suspected to be caused by linezolid. Patient states she is feeling well. Her appetite is good. No fever, chills, night sweats. No sinus drainage or sore throat. No shortness of breath, cough, chest pain no GI or problems. No joint or bone pain. No headaches or dizziness. Review Of Symptoms: See above. 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 Medications: Aspirin 1 Tablet (of 81 mg) Tablet, enteric coated Oral daily Crestor 1 Tablet (of 10 mg) Oral daily Lantus 12 Unit(s) (of 100 Units/mL) Subcutaneous at bedtime Lisinopril 1 Tablet (of 2.5 mg) Oral daily NovoLOG 2 Unit(s) (of 100 Units/mL) Subcutaneous PRN Plavix 1 Tablet (of 75 mg) Oral daily Tradjenta 1 Tablet (of 5 mg) Oral daily Vitamin D 1 Capsule (of 5000 International Unit(s)) Oral daily Family History: Ms. Abbott's mother is . Ms. Abbott's father is . Her family history is pretty much unknown to her, though both parents are . Social History: Ms. Abbott is . Ms. Abbott no longer smokes. She has no history of drinking. She has a history of smoking 1 pack of cigarettes daily for 16 years. She quit smoking in 1999. She does not drink alcohol, and she has had just occasional alcohol use in the past. Physical Examination: Performed on Feb 26, 2022 13:30: Height - 69.00 in, Weight - 184.2 lbs (LOW), BSA - 1.99 sq.m, BMI - 27.20, Temperature - 98.1 F (LOW), Pulse - 97 /min, Respiration - 18 /min, BP - 117/70 mm(hg), O2 Sat - 97 %, Pain - 0, and Fatigue - 7. Performance Status: 1 - No physically strenuous activity, but ambulatory and able to carry out light or sedentary work (e.g. office work, light house work). (ECOG) Constitutional Alert, cooperative, oriented. Mood and affect appropriate. Appears close to chronological age. Well nourished. Well developed. Head Normocephalic; no scars. Respiratory Lungs are clear to auscultation without rhonchi or wheezing. Cardiovascular Regular rate and rhythm of heart without murmurs, gallops or rubs. Abdomen Non-tender, non-distended, no masses, ascites or hepatosplenomegaly. Good bowel sounds. No guarding or rebound tenderness. Musculoskeletal No tenderness or swelling, normal range of motion without obvious weakness. Psychiatric Alert and oriented times three. Coherent speech. Verbalizes understanding of our discussions today. Laboratory: Test performed on Feb 05, 2022 13:47 Folate, Serum 5.2 ng/mL Iron 41 mcg/dL LDH (Total) 177 U/L Sodium 136 mmol/L Vitamin B12 467 pg/mL Iron Binding Capacity (TIBC) 309 mcg/dl Potassium 4.6 mmol/L % Iron Saturation 13.2 % Chloride 104 mmol/L CO2 21 mmol/L UIBC 268 mcg/dL Anion Gap 15.6 BUN 28 mg/dL Creatinine 1.6 mg/dL Cr Clearance (Est) 50.59 mL/min eGFR 33.0 mL/min Glucose 151 mg/dL Osmolality - Calculated 290 mOsm/kg Calcium 9.3 mg/dL Protein, Total 7.5 g/dL Albumin 4.6 g/dL Globulin 2.9 g/dL Bilirubin, Total 0.2 mg/dL ALT (SGPT) 20 U/L AST (SGOT) 19 U/L Alkaline Phosphatase 70 IU/L Retic Count % 1.7 % WBC 7.5 10 3/uL RBC 3.97 10 6/uL HGB 10.8 g/dL HCT 34.9 % MCV 87.9 fl MCH 27.2 pg MCHC 30.9 g/dL RDW 14.6 % Platelet Count 319 10 3/cmm MPV 11.5 fL Neutrophils 4.73 10 3/uL Lymphocytes 1.8 10 3/uL Monocytes 0.8 10 3/uL Eosinophils 0.2 10 3/uL Basophils 0.1 10 3/uL Neutrophil % 62.7 % Lymphocyte % 23.2 % Monocyte % 9.9 % Eosinophil % 3.1 % Basophils % 0.8 % NRBC % 0 % Impression: 1. Mild anemia and mild thrombocytopenia. This is presumed secondary to linezolid, though there may be other contributing factors to the anemia. 2. Type 2 diabetes with diabetic ulceration of the right plantar foot and associated osteomyelitis. 3. Hypertension. 4. Hyperlipidemia. 5. Chronic kidney disease. 6. History of brainstem stroke. 7. History of iron deficiency anemia. 8. History of depression. Plan: Patient presents today for follow-up of thrombocytopenia suspected to be caused from linezolid. Her labs have stabilized. Her WBC is mildly elevated at 10.2, hemoglobin 12.1, hematocrit 38.6, and her platelet count is 237,000. CMP with sodium at 135, potassium 5.1, glucose mildly elevated at 131, her BUN is elevated at 33 and creatinine at 1.6 but she does see nephrology for this. Patient is feeling well and labs have stabilized since linezolid was discontinued. We will see patient on an as-needed basis. Signed By: Sue Maciel N.Glo. <<Signature on File>>
== END 2022-02-26 11:17 | disposition home or self-care (01) ==
PROVIDERS: PCP Family Medicine; Visit Provider Nurse Practitioner Family
DX: D69.6 Thrombocytopenia, unspecified (principal); E78.5 Hyperlipidemia, unspecified; I12.9 Hypertensive chronic kidney disease with stage 1 through stage 4 chronic kidney disease, or unspecified chronic kidney disease; E11.22 Type 2 diabetes mellitus with diabetic chronic kidney disease; N18.9 Chronic kidney disease, unspecified; E11.319 Type 2 diabetes mellitus with unspecified diabetic retinopathy without macular edema; E11.40 Type 2 diabetes mellitus with diabetic neuropathy, unspecified; D50.9 Iron deficiency anemia, unspecified; F32.A Depression, unspecified; Z79.899 Other long term (current) drug therapy; Z86.73 Personal history of transient ischemic attack (TIA), and cerebral infarction without residual deficits
CPT/HCPCS: 11042; 36415; 80053; 85025; 99214; A6197; A6250

== ENCOUNTER → 2022-03-05 08:34 | Outpatient (BNVA) | payer MEDICARE, SELFPAY | PROVIDERS: PCP Family Medicine; Visit Provider Nurse Practitioner Family | DX: E11.621 Type 2 diabetes mellitus with foot ulcer (principal); L97.412 Non-pressure chronic ulcer of right heel and midfoot with fat layer exposed; I96 Gangrene, not elsewhere classified; Z87.891 Personal history of nicotine dependence | CPT/HCPCS: 11042; A6197; A6250 ==

== ENCOUNTER → 2022-03-12 10:41 | Outpatient (BNVA) | payer MEDICARE, SELFPAY | PROVIDERS: PCP Family Medicine; Visit Provider Nurse Practitioner Family | DX: E11.621 Type 2 diabetes mellitus with foot ulcer (principal); L97.412 Non-pressure chronic ulcer of right heel and midfoot with fat layer exposed; I96 Gangrene, not elsewhere classified; Z87.891 Personal history of nicotine dependence | CPT/HCPCS: 11042; A6250 ==

== ENCOUNTER → 2022-03-19 10:28 | Outpatient (BNVA) | payer MEDICARE, SELFPAY | PROVIDERS: PCP Family Medicine; Visit Provider Nurse Practitioner Family | DX: E11.621 Type 2 diabetes mellitus with foot ulcer (principal); I96 Gangrene, not elsewhere classified; L97.412 Non-pressure chronic ulcer of right heel and midfoot with fat layer exposed; Z89.422 Acquired absence of other left toe(s); R30.0 Dysuria; R25.2 Cramp and spasm | CPT/HCPCS: 11042; 81000; 83735; 87077; 87086; 87184; A6250 ==

== ENCOUNTER → 2022-03-26 09:12 | Outpatient (BNVA) | payer MEDICARE, SELFPAY | PROVIDERS: PCP Family Medicine; Visit Provider Nurse Practitioner Family | DX: E11.621 Type 2 diabetes mellitus with foot ulcer (principal); L97.412 Non-pressure chronic ulcer of right heel and midfoot with fat layer exposed; I96 Gangrene, not elsewhere classified; Z87.891 Personal history of nicotine dependence | CPT/HCPCS: 11042; A6206; A6250 ==

== ENCOUNTER → 2022-04-02 09:27 | Outpatient (BNVA) | payer MEDICARE, SELFPAY | PROVIDERS: PCP Family Medicine; Visit Provider Nurse Practitioner Family | DX: E11.621 Type 2 diabetes mellitus with foot ulcer (principal); L97.412 Non-pressure chronic ulcer of right heel and midfoot with fat layer exposed; I96 Gangrene, not elsewhere classified | CPT/HCPCS: 11042; A6206; A6250 ==

== ENCOUNTER → 2022-04-09 09:29 | Outpatient (BNVA) | payer MEDICARE, SELFPAY | PROVIDERS: PCP Family Medicine; Visit Provider Nurse Practitioner Family | DX: E11.621 Type 2 diabetes mellitus with foot ulcer (principal); L97.412 Non-pressure chronic ulcer of right heel and midfoot with fat layer exposed; I96 Gangrene, not elsewhere classified | CPT/HCPCS: 11042; A6206; A6250 ==

== ENCOUNTER → 2022-04-16 09:37 | Outpatient (BNVA) | payer MEDICARE, SELFPAY | PROVIDERS: PCP Family Medicine; Visit Provider Nurse Practitioner Family | DX: E11.621 Type 2 diabetes mellitus with foot ulcer (principal); L97.412 Non-pressure chronic ulcer of right heel and midfoot with fat layer exposed; I96 Gangrene, not elsewhere classified; R30.0 Dysuria | CPT/HCPCS: 11042; 87086 ==

== ENCOUNTER → 2022-04-23 09:32 | Outpatient (BNVA) | payer MEDICARE, SELFPAY | PROVIDERS: PCP Family Medicine; Visit Provider Nurse Practitioner Family | DX: E11.621 Type 2 diabetes mellitus with foot ulcer (principal); L97.512 Non-pressure chronic ulcer of other part of right foot with fat layer exposed; I96 Gangrene, not elsewhere classified | CPT/HCPCS: 11042 ==

== ENCOUNTER → 2022-04-30 09:27 | Outpatient (BNVA) | payer MEDICARE, SELFPAY | PROVIDERS: PCP Family Medicine; Visit Provider Nurse Practitioner Family | DX: E11.621 Type 2 diabetes mellitus with foot ulcer (principal); L97.412 Non-pressure chronic ulcer of right heel and midfoot with fat layer exposed; I96 Gangrene, not elsewhere classified | CPT/HCPCS: 11042 ==

== ENCOUNTER → 2022-05-04 10:14 | Outpatient (BNVA) | payer MEDICARE, SELFPAY | PROVIDERS: PCP Family Medicine; Visit Provider Internal Medicine | DX: E11.40 Type 2 diabetes mellitus with diabetic neuropathy, unspecified (principal); E11.22 Type 2 diabetes mellitus with diabetic chronic kidney disease; E11.319 Type 2 diabetes mellitus with unspecified diabetic retinopathy without macular edema; E11.621 Type 2 diabetes mellitus with foot ulcer; N18.30 Chronic kidney disease, stage 3 unspecified; Z79.4 Long term (current) use of insulin; Z87.891 Personal history of nicotine dependence | CPT/HCPCS: 99214 ==

== ENCOUNTER → 2022-05-07 09:12 | Outpatient (BNVA) | payer MEDICARE, SELFPAY | PROVIDERS: PCP Family Medicine; Visit Provider Nurse Practitioner Family | DX: E11.621 Type 2 diabetes mellitus with foot ulcer (principal); L97.412 Non-pressure chronic ulcer of right heel and midfoot with fat layer exposed; I96 Gangrene, not elsewhere classified | CPT/HCPCS: 11042 ==

== ENCOUNTER → 2022-05-14 10:06 | Outpatient (BNVA) | payer MEDICARE, SELFPAY | PROVIDERS: PCP Family Medicine; Visit Provider Nurse Practitioner Family | DX: E11.621 Type 2 diabetes mellitus with foot ulcer (principal); L97.412 Non-pressure chronic ulcer of right heel and midfoot with fat layer exposed; I96 Gangrene, not elsewhere classified | CPT/HCPCS: 11042 ==

== ENCOUNTER → 2022-05-22 13:03 | Outpatient (BNVA) | payer MEDICARE, SELFPAY | PROVIDERS: PCP Family Medicine; Visit Provider Surgery | DX: E11.621 Type 2 diabetes mellitus with foot ulcer (principal); L97.412 Non-pressure chronic ulcer of right heel and midfoot with fat layer exposed; I96 Gangrene, not elsewhere classified; L97.514 Non-pressure chronic ulcer of other part of right foot with necrosis of bone | CPT/HCPCS: 11042; 73630; A6250 ==

== ENCOUNTER 2022-05-22 14:07 | Outpatient (CLI) | payer MEDICARE, SELFPAY ==
--- NOTE | 2022-05-22 14:28 | XR_ITS ---
WS: [id number] XR foot RT min 3V* [id number] REASON FOR EXAM: right foot wound and pain FINDINGS: No fracture. Previous amputation of the phalanges of the right great toe and second toe. Previous resection of the distal most first metatarsal. No bony destruction or periosteal reaction is identified. No significant interval change compared to the previous examination of 11/10/2021. XR/XR foot RT min 3V* [id number] IMPRESSION: Previous amputations and osteotomy with no acute abnormality identified.
== END 2022-05-22 14:08 | disposition home or self-care (01) ==
LOC: RAD 14:10
PROVIDERS: PCP Family Medicine; Visit Provider Surgery
DX: L97.514 Non-pressure chronic ulcer of other part of right foot with necrosis of bone (principal)
CPT/HCPCS: 73630

== ENCOUNTER → 2022-05-26 08:58 | Outpatient (BNVA) | payer MEDICARE, SELFPAY | PROVIDERS: PCP Family Medicine; Visit Provider Internal Medicine Nephrology | DX: N18.32 Chronic kidney disease, stage 3b (principal) | CPT/HCPCS: 80069; 82043; 82310; 83970; 85025 ==

== ENCOUNTER → 2022-05-28 08:14 | Outpatient (BNVA) | payer MEDICARE, SELFPAY | PROVIDERS: PCP Family Medicine; Visit Provider Emergency Medicine | DX: E11.621 Type 2 diabetes mellitus with foot ulcer (principal); L97.412 Non-pressure chronic ulcer of right heel and midfoot with fat layer exposed; I96 Gangrene, not elsewhere classified | CPT/HCPCS: 11042 ==

== ENCOUNTER → 2022-06-11 08:49 | Outpatient (BNVA) | payer MEDICARE, SELFPAY | PROVIDERS: PCP Family Medicine; Visit Provider Nurse Practitioner Family | DX: E11.621 Type 2 diabetes mellitus with foot ulcer (principal); L97.412 Non-pressure chronic ulcer of right heel and midfoot with fat layer exposed; I96 Gangrene, not elsewhere classified | CPT/HCPCS: 11042; 87070 ==

== ENCOUNTER 2022-06-12 07:40 | Outpatient (CLI) | payer MEDICARE, SELFPAY ==
--- NOTE | 2022-06-12 07:49 | NM_ITS ---
WS: [id number] THREE-PHASE BONE SCAN HISTORY: E11.621 - Type 2 diabetes mellitus with foot ulcer COMPARISON: 12/05/2021 Patient is is injected with 23.7 mCi Tc99m HDP intravenously. Immediate angiographic phase imaging is performed over the area of concern. Static blood pool imaging also performed. Two-hour whole-body sc intigrams performed in anterior and posterior projections. Additional large field of view imaging sub mitted as necessary. 3 phase bone scan is centered over the feet. There is diffuse angiographic phase uptake involving the RIGHT ankle and foot. On the blood pool phas e images there is continued increased uptake in the ankle and over the foot. On the delayed imaging t here is increased uptake throughout nearly the entire foot and and including the distal tibia, talus and calcaneus. More focal uptake involving the distal second toe and the amputation sites at the firs t and second metatarsals. Extensive bone and soft tissue uptake involving the ankle and foot may in part be due to cellulitis b ut also altered weightbearing pattern. Normal soft tissue uptake. Normal renal uptake. NM/NM bone 3 phase 66626 IMPRESSION: 1. Bone scan is positive in all 3 phases involving the ankle and entire RIGHT foot. These diffuse changes are probably related to cellulitis but also may be secondary to altered weightbearing resulting in the marrow abnormality. 2. New increased activity in the distal third toe which was not present on the prior examinations. Most consistent with osteomyelitis. There is also moderate uptake at the amputation sites of the first and second metatarsals. Some of th moreno changes may be related to recent surgery and debridement. Please correlate with any recent surgery or debridement. Otherwise progressive osteomyelitis is likely.
== END 2022-06-12 07:41 | disposition home or self-care (01) ==
PROVIDERS: PCP Family Medicine; Visit Provider Emergency Medicine
DX: E11.621 Type 2 diabetes mellitus with foot ulcer (principal); L97.519 Non-pressure chronic ulcer of other part of right foot with unspecified severity
CPT/HCPCS: 78315; A9561

== ENCOUNTER → 2022-06-18 08:00 | Outpatient (BNVA) | payer MEDICARE, SELFPAY | PROVIDERS: PCP Family Medicine; Referring Provider Family Medicine; Visit Provider Specialist | DX: E11.40 Type 2 diabetes mellitus with diabetic neuropathy, unspecified (principal); Z79.4 Long term (current) use of insulin; E11.621 Type 2 diabetes mellitus with foot ulcer; L97.512 Non-pressure chronic ulcer of other part of right foot with fat layer exposed; I96 Gangrene, not elsewhere classified | CPT/HCPCS: 11042; 95909; 95911 ==

== ENCOUNTER → 2022-06-25 10:09 | Outpatient (BNVA) | payer MEDICARE, SELFPAY | PROVIDERS: PCP Family Medicine; Visit Provider Student in an Organized Health Care Education/Training Program | DX: M86.9 Osteomyelitis, unspecified (principal); E11.42 Type 2 diabetes mellitus with diabetic polyneuropathy | CPT/HCPCS: 36415; 83036; 85651; 86140; 99204 ==

== ENCOUNTER → 2022-07-01 12:34 | Outpatient (BNVA) | payer MEDICARE, SELFPAY | PROVIDERS: PCP Family Medicine; Visit Provider Emergency Medicine | DX: E11.621 Type 2 diabetes mellitus with foot ulcer (principal); L97.512 Non-pressure chronic ulcer of other part of right foot with fat layer exposed; I96 Gangrene, not elsewhere classified | CPT/HCPCS: 11042 ==

== ENCOUNTER → 2022-07-09 12:53 | Outpatient (BNVA) | payer MEDICARE, SELFPAY | PROVIDERS: PCP Family Medicine; Visit Provider Student in an Organized Health Care Education/Training Program | DX: M86.9 Osteomyelitis, unspecified (principal); E11.621 Type 2 diabetes mellitus with foot ulcer; L97.412 Non-pressure chronic ulcer of right heel and midfoot with fat layer exposed; I96 Gangrene, not elsewhere classified | CPT/HCPCS: 11042; 99214 ==

== ENCOUNTER → 2022-07-13 09:15 | Outpatient (BNVA) | payer MEDICARE, SELFPAY | PROVIDERS: PCP Family Medicine; Visit Provider Podiatrist Foot & Ankle Surgery | DX: E11.621 Type 2 diabetes mellitus with foot ulcer (principal); L97.512 Non-pressure chronic ulcer of other part of right foot with fat layer exposed; E11.22 Type 2 diabetes mellitus with diabetic chronic kidney disease; N18.30 Chronic kidney disease, stage 3 unspecified; E11.40 Type 2 diabetes mellitus with diabetic neuropathy, unspecified; Z79.4 Long term (current) use of insulin; M24.571 Contracture, right ankle | CPT/HCPCS: 99214; 99215 ==

== ENCOUNTER → 2022-07-16 14:05 | Outpatient (BNVA) | payer MEDICARE, SELFPAY | PROVIDERS: PCP Family Medicine; Visit Provider Nurse Practitioner Family | DX: E11.621 Type 2 diabetes mellitus with foot ulcer (principal); L97.412 Non-pressure chronic ulcer of right heel and midfoot with fat layer exposed; I96 Gangrene, not elsewhere classified | CPT/HCPCS: 99213 ==

== ENCOUNTER → 2022-07-23 10:05 | Outpatient (BNVA) | payer MEDICARE, SELFPAY | PROVIDERS: PCP Family Medicine; Visit Provider Nurse Practitioner Family | DX: I96 Gangrene, not elsewhere classified (principal); E11.621 Type 2 diabetes mellitus with foot ulcer; L97.412 Non-pressure chronic ulcer of right heel and midfoot with fat layer exposed | CPT/HCPCS: 11042 ==

== ENCOUNTER → 2022-07-24 10:04 | Outpatient (BNVA) | payer MEDICARE, SELFPAY | PROVIDERS: PCP Family Medicine; Visit Provider Family Medicine | DX: E11.42 Type 2 diabetes mellitus with diabetic polyneuropathy (principal); Z23 Encounter for immunization; E78.5 Hyperlipidemia, unspecified; E78.6 Lipoprotein deficiency | CPT/HCPCS: 80053; 80061 ==

== ENCOUNTER → 2022-07-29 11:22 | Outpatient (BNVA) | payer MEDICARE, SELFPAY | PROVIDERS: PCP Family Medicine; Visit Provider Internal Medicine | DX: E11.40 Type 2 diabetes mellitus with diabetic neuropathy, unspecified (principal); Z79.4 Long term (current) use of insulin | CPT/HCPCS: 84443 ==

== ENCOUNTER → 2022-07-30 09:06 | Outpatient (BNVA) | payer MEDICARE, SELFPAY | PROVIDERS: PCP Family Medicine; Visit Provider Nurse Practitioner Family | DX: E11.621 Type 2 diabetes mellitus with foot ulcer (principal); L97.412 Non-pressure chronic ulcer of right heel and midfoot with fat layer exposed; I96 Gangrene, not elsewhere classified | CPT/HCPCS: 11042 ==

== ENCOUNTER → 2022-08-05 14:35 | Outpatient (BNVA) | payer MEDICARE, SELFPAY | PROVIDERS: PCP Family Medicine; Visit Provider Internal Medicine | DX: E11.40 Type 2 diabetes mellitus with diabetic neuropathy, unspecified (principal); E11.22 Type 2 diabetes mellitus with diabetic chronic kidney disease; E11.319 Type 2 diabetes mellitus with unspecified diabetic retinopathy without macular edema; N18.30 Chronic kidney disease, stage 3 unspecified; Z79.4 Long term (current) use of insulin; Z87.891 Personal history of nicotine dependence | CPT/HCPCS: 99214 ==

== ENCOUNTER 2022-08-07 05:55 | Day surgery (SDC) | payer MEDICARE, SELFPAY ==
[2022-08-07 06:11] VITALS: BP 135/74; PULSE 78; RESP 18; TEMP 36.4; O2SAT 100
[2022-08-07] MEDS: sodium chloride 0.9% 1,000 ML 30 ML IV (06:22)
[2022-08-07 06:24] LABS: Glucose Point of Care 143 mg/dL (70-110)
--- NOTE | 2022-08-07 06:27 | ANES.PREANE2 ---
Pre-Anesthetic Assessment Height/Weight: Height 1.75 m Weight 86.183 kg Temp Pulse Resp BP Pulse Ox O2 Del Method 97.5 F L 78 18 135/74 100 08/07/22 06:11 08/07/22 06:11 08/07/22 06:11 08/07/22 06:11 08/07/22 06:11 08/07/22 06:11 Preop Diagnosis: Right ankle equinus Operation Date: 08/07/22 07:30 Proposed Procedures p Right Achilles lengthening 07265,M24.571(Right) - Eduin Cardoso DPM Familial anesthetic complications: None Was Beta Malia taken within 24 hours: N/A Was Clonidine taken within 24 hours: N/A Last intake: Intake Last Liquid Date 08/06/22 Last Liquid Time 22:30 Last Solid Date 08/06/22 Last Solid Time 19:00 Social No alcohol and No tobacco Exam alert, oriented x 3, clear to auscultation bilaterally and regular rate & rhythm Airway Submandibular: within normal limits Cervical ROM: within normal limits Mallampati: Class I Dentition: full History/ROS No significant complaints Pulmonary None reported CV/HEM Hypertension Chronic Renal Insufficiency Hepatic None reported GI None reported Metabolic Diabetes Mellitus and Hyperlipidemia [facility] [place] None reported Osteomyelitis Chronic ulcer Neuropsych Neuropathy and Transient Ischemic Attack Vertebrobasilar artery insufficiency, 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 Patient activated: 0.? 1 was auto detected.? Baseline heart rate was anywhere from 57bpm to 126 beats per minute.? Heart rhythm was sinus bradycardia to sinus tachycardia. No atrial fibrillation was noted. Premature atrial contractions were noted. No significant pause was noted. [] ? On 09/08/2020, at 12:43 PM sinus tachycardia with heart rate of 126 bpm was noted. Patient did not trigger it and was asymptomatic.? Rest of all events showed sinus rhythm. Anesthetic Plan ASA status: 3 Anesthesia: Anesthesia Evaluation, General and MAC Other: I discussed with the patient risks, goals, and benefits of MAC and general anesthesia. We discussed spectrum of MAC anesthesia including conversion to general as well as possibility of recall of intraoperative stimuli including discomfort/pain. Patient agrees to proceed with MAC. Risk of > 500 ml blood loss (7ml/kg in children): No Medications/Allergies Home Medications Medication Instructions Recorded Confirmed Last Taken Type aspirin 325 mg tablet 81 mg PO DAILY 08/22/20 08/07/22 08/05/22 History clopidogrel 75 mg tablet (Plavix) 75 mg PO DAILY #90 tabs 11/25/21 08/07/22 08/05/22 Rx cholecalciferol (vitamin D3) 1,250 5,000 unit PO DAILY 01/12/22 08/07/22 08/06/22 History mcg (50,000 unit) capsule rosuvastatin 10 mg tablet 10 mg PO DAILY 90 days #90 tabs 04/09/22 08/07/22 08/06/22 Rx ascorbate calcium (vitamin C) 500 500 mg PO DAILY 04/16/22 08/07/22 08/06/22 History mg tablet omega-3 1,050 [id number] 1 cap PO DAILY 04/16/22 08/07/22 08/06/22 History oil 1,200 mg capsule (Hayward-3 2100) zinc acetate 25 mg (zinc) capsule 25 mg PO DAILY 04/16/22 08/07/22 08/06/22 History (Galzin) gabapentin 100 mg capsule 100 mg PO TID #90 caps 06/25/22 08/07/22 08/06/22 Rx lisinopril 2.5 mg tablet 2.5 mg PO BID #180 tabs 06/25/22 08/07/22 08/06/22 Rx insulin glargine 100 unit/mL (3 13 unit (0.13 mL) SUBCUT .bedtime 08/05/22 08/07/22 08/06/22 Rx mL) subcutaneous pen (Lantus #15 mL Solostar U-100 Insulin) flash glucose scanning reader #1 ea 08/06/22 08/06/22 Unknown Rx (FreeStyle Tiffanie 2 [place]) flash glucose sensor (FreeStyle #1 ea 08/06/22 08/06/22 Unknown Rx Tiffanie 2 Sensor) gabapentin 300 mg capsule 300 mg PO DAILY 08/06/22 08/07/22 08/06/22 History (Neurontin) insulin aspart U-100 100 unit/mL 2 unit SUBCUT 08/06/22 08/05/22 History (3 mL) subcutaneous pen (Novolog Flexpen U-100 Insulin aspart) linagliptin 5 mg tablet (Tradjenta) 5 mg PO DAILY 08/06/22 08/07/22 08/06/22 History hydrocodone 5 mg-acetaminophen 325 1 tab PO Q12H PRN pain 5 days #10 08/07/22 Unknown Rx mg tablet tabs Allergies Allergy/AdvReac Type Severity Reaction Status Date / Time codeine Allergy Unknown Verified 08/05/22 15:11 Penicillins Allergy Unknown Verified 08/05/22 15:11 Current Medications Generic Name Dose Route Start Last Admin Trade Name Freq PRN Reason Stop Dose Admin Sodium Chloride 1,000 mls @ 30 mls/hr 08/07/22 06:00 08/07/22 06:22 Sodium Chloride 0.9% IV 08/08/22 05:59 30 mls/hr .Q24H FELICIA Administration PFSH Anesthesia Medical History Hx-TIA (transient ischemic attack) Hyperlipidemia with low HDL Type 2 diabetes mellitus with diabetic neuropathy, unspecified Surgical History H/O esophagogastroduodenoscopy (08/08/20) H/O tubal ligation History of amputation of great toe right 07/25/2019 Status post colonoscopy with polypectomy (08/08/20) Family History Sister CAD (coronary artery disease) Social History Smoking and tobacco status: former smoker Alcohol intake: never Household members: spouse Marital status: Current occupational status: unemployed Female Reproductive History Date of last menstrual period: 11/02/12 Data Anesthesia Cardiac Studies: Cardiac Event Monitor 09/06/20
--- NOTE | 2022-08-07 06:31 | W.PM.OPSUD ---
Surgery/Procedure H&P Update DATE OF PROCEDURE: August 07, 2022 DATE H&P PERFORMED: 07/13/22 CHANGES TO PREVIOUS DOCUMENTATION: None PREOP DIAGNOSIS: Right ankle equinus PRIMARY INDICATION FOR PROCEDURE: Right ankle equinus PLANNED PROCEDURE: Operation Date: 08/07/22 07:30 Proposed Procedures p Right Achilles lengthening 81145,M24.571(Right) - Eduin Cardoso DPM
--- NOTE | 2022-08-07 06:39 | P.OP_ITS ---
Operative Report Date of procedure: August 07, 2022 Pre-op diagnosis: Right ankle equinus Recalcitrant ulceration right plantar forefoot Post-op diagnosis: Same Post-op findings: Improved right ankle dorsiflexion able to obtain 10 degrees of dorsiflexion. Procedure done: Right Achilles lengthening. CPT code 19763 Implants: 4-0 nylon Specimens removed/disposition: None Pathology: None Surgeon: Eduin Cardoso D.P.M. Stamping Press Operator: See intraoperative documentation Estimated blood loss: Less than 5 No tourniquet IV fluids: None Urine output: None Complications: None Findings: Improved dorsiflexion Brief History: Patient has had a nonhealing wound subthird metatarsal head right foot due to altered mechanics, peripheral neuropathy secondary to diabetes.? Wound has remained stable but nonhealing.? Has tried a variety of modalities for offloading currently utilizing a peg assist cam boot, has history of total contact cast without improvement.? She has a significant equinus to the right ankle is only able to dorsiflex to 90 degrees.? He has a history of first and second toe amputation to the right with significant transfer pressure to the third metatarsal phalangeal joint plantarly.? She has fat pad atrophy and anterior shift in the fat pad.? Recommended a multispecialty approach, will continue with wound care at this time continue offloading with cam boot.? In r luanards to the equinus component I think this can be improved with a percutaneous Achilles can be done outpatient under MAC anesthesia would help offload the forefoot.? Once she is healed would look towards a custom molded accommodative orthotic with toe filler.? Would like to proceed with surgical intervention at her next available opportunity.? This would be August 07, 2022.? Will continue with wound care clinic until that time after which I will follow the patient for 6 weeks after Achilles lengthening.? Risks include pain, bleeding, numbness, infection, Achilles tendon rupture.? Failure to elongate Achilles tendon.? Recurrence of equinus contracture need for further surgical intervention, risk for calcaneal gait, a propulsive gait, risk for deep vein thrombosis, heart attack, stroke and .Patient has had a nonhealing wound subthird metatarsal head right foot due to altered mechanics, peripheral neuropathy secondary to diabetes.? Wound has remained stable but nonhealing.? Has tried a variety of modalities for offloading currently utilizing a peg assist cam boot, has history of total contact cast without improvement.? She has a significant equinus to the right ankle is only able to dorsiflex to 90 degrees.? He has a history of first and second toe amputation to the right with significant transfer pressure to the third metatarsal phalangeal joint plantarly.? She has fat pad atrophy and anterior shift in the fat pad.? Recommended a multispecialty approach, will continue with wound care at this time continue offloading with cam boot.? In regards to the equinus component I think this can be improved with a percutaneous Achilles can be done outpatient under MAC anesthesia would help offload the forefoot.? Once she is healed would look towards a custom molded accommodative orthotic with toe filler.? Would like to proceed with surgical intervention at her next available opportunity.? This would be August 07, 2022.? Will continue with wound care clinic until that time after which I will follow the patient for 6 weeks after Achilles lengthening.? Risks include pain, bleeding, numbness, infection, Achilles tendon rupture.? Failure to elongate Achilles tendon.? Recurrence of equinus contracture need for further surgical intervention, risk for calcaneal gait, a propulsive gait, risk for deep vein thrombosis, heart attack, stroke and . Procedure: Under mild sedation the patient was brought to the operating room and remained on the gurney in supine position. A timeout was performed. Anesthesia was then administered by the esthesia service. Local anesthesia injected by myself total of 20 cc of 0.25% Marcaine plain in a V-block to the right posterior leg at the myotendinous Achilles juncture. Right lower extremity was then scrubbed, prepped and draped utilizing normal aseptic technique. Attention was directed to the right Achilles tendon. Right leg was elevated, 1.5 cm proximal to the insertion of the right Achilles tendon a hemisection was performed and the medial half was transected with a sagittal saw. 15 blade was utilized percutaneously parallel with the Achilles tendon and then rotated 90 degrees for a medial hemisection. A second hemisection of the lateral portion followed by a third hemisection of the medial portion of the Achilles tendon was performed with a total of 3 hemisections spaced 1.5 cm apart. Dorsiflexion intraoperatively appreciated to be significantly improved at 10 degrees to the right ankle. The incisions were flushed and closed with a single 4-0 nylon s titch at each incision. OpSite was applied followed by Remi wrap and cam boot. Patient tolerated the procedure and anesthesia well and was transferred to the PACU with vital signs stable and vascular status intact. Following a period of postoperative monitoring she will be discharged home. Is to remain nonweightbearing to the right lower extremity and maintain cam boot in place at all times to help maintain 90 degrees. Follow-up in podiatry clinic next week.
[2022-08-07] MEDS: clindamycin 600 MG/50 ML PREMIX 100 MG IV (07:22)
[2022-08-07 07:48] VITALS: BP 107/58; PULSE 79; RESP 14; TEMP 36.3; O2SAT 100
[2022-08-07 07:53] VITALS: BP 106/67; PULSE 81; RESP 16; O2SAT 97
--- NOTE | 2022-08-07 07:54 | SUR.OPER ---
0748 right foot has a wound on the bottom of ball of foot, pts own dressing removed, prepped, dressed after case with 2x2 and tegaderm
[2022-08-07 07:58] VITALS: BP 112/63; PULSE 80; RESP 16; O2SAT 97
[2022-08-07 08:00] VITALS: BP 114/6; PULSE 77; RESP 16; TEMP 36.8; O2SAT 99
[2022-08-07 08:10] VITALS: BP 111/65; PULSE 75; RESP 18; TEMP 36.5; O2SAT 99
--- NOTE | 2022-08-07 13:44 | ANE.PACU2 ---
Inpatient post-anesthesia follow up: Airway intact: Yes Vital signs: Temperature 97.7 F Pulse Rate 75 Respiratory Rate 18 Blood Pressure 111/65 Pulse Oximetry 99 Oxygen Delivery Me thod Room Air Oxygen Flow Rate Fraction of Inspir ed Oxygen Hydration adequate: Yes Nausea and vomiting: No Pain level: 1 Mental status: Baseline
== END 2022-08-07 08:40 | disposition home or self-care (01) ==
PROVIDERS: PCP Family Medicine; Visit Provider Podiatrist Foot & Ankle Surgery
PROC: (CPT 28261; principal; 2022-08-07 07:30)
DX: M24.571 Contracture, right ankle (principal); L97.319 Non-pressure chronic ulcer of right ankle with unspecified severity; I10 Essential (primary) hypertension; E78.5 Hyperlipidemia, unspecified; E11.40 Type 2 diabetes mellitus with diabetic neuropathy, unspecified; Z86.73 Personal history of transient ischemic attack (TIA), and cerebral infarction without residual deficits; Z79.82 Long term (current) use of aspirin; Z79.4 Long term (current) use of insulin
CPT/HCPCS: 27606; 36416; 82962; J2001; J2704; J3010; J3490; J7030

== ENCOUNTER → 2022-08-18 13:55 | Outpatient (BNVA) | payer MEDICARE, SELFPAY | PROVIDERS: PCP Family Medicine; Visit Provider Podiatrist Foot & Ankle Surgery | DX: E11.621 Type 2 diabetes mellitus with foot ulcer (principal); L97.512 Non-pressure chronic ulcer of other part of right foot with fat layer exposed; E11.22 Type 2 diabetes mellitus with diabetic chronic kidney disease; N18.30 Chronic kidney disease, stage 3 unspecified; E11.40 Type 2 diabetes mellitus with diabetic neuropathy, unspecified; Z79.4 Long term (current) use of insulin; M24.571 Contracture, right ankle | CPT/HCPCS: 99214 ==

== ENCOUNTER → 2022-08-27 13:14 | Outpatient (BNVA) | payer MEDICARE, SELFPAY | PROVIDERS: PCP Family Medicine; Visit Provider Podiatrist Foot & Ankle Surgery | DX: E11.621 Type 2 diabetes mellitus with foot ulcer (principal); L97.512 Non-pressure chronic ulcer of other part of right foot with fat layer exposed; E11.22 Type 2 diabetes mellitus with diabetic chronic kidney disease; N18.30 Chronic kidney disease, stage 3 unspecified; E11.40 Type 2 diabetes mellitus with diabetic neuropathy, unspecified; Z79.4 Long term (current) use of insulin; M24.571 Contracture, right ankle | CPT/HCPCS: 99213 ==

== ENCOUNTER → 2022-09-09 10:53 | Outpatient (BNVA) | payer MEDICARE, SELFPAY | PROVIDERS: PCP Family Medicine; Visit Provider Podiatrist Foot & Ankle Surgery | DX: E11.621 Type 2 diabetes mellitus with foot ulcer (principal); E11.40 Type 2 diabetes mellitus with diabetic neuropathy, unspecified; Z79.4 Long term (current) use of insulin; M24.571 Contracture, right ankle; L97.512 Non-pressure chronic ulcer of other part of right foot with fat layer exposed | CPT/HCPCS: 11042 ==

== ENCOUNTER 2022-09-24 13:29 | Outpatient (CLI) | payer MEDICARE, SELFPAY ==
[2022-09-24 13:48] LABS: Erythrocyte Sedimentation Rate 4 mm/hr (0-15)
== END 2022-09-24 13:30 | disposition home or self-care (01) ==
LOC: LAB 13:32
PROVIDERS: PCP Family Medicine; Visit Provider Student in an Organized Health Care Education/Training Program
DX: M86.9 Osteomyelitis, unspecified (principal); Z98.890 Other specified postprocedural states; E11.40 Type 2 diabetes mellitus with diabetic neuropathy, unspecified; Z79.4 Long term (current) use of insulin; M24.571 Contracture, right ankle
CPT/HCPCS: 36415; 85651; 86140; 99214

== ENCOUNTER → 2022-09-29 12:00 | Outpatient (BNVA) | payer MEDICARE, SELFPAY | PROVIDERS: PCP Family Medicine; Visit Provider Student in an Organized Health Care Education/Training Program | DX: L97.512 Non-pressure chronic ulcer of other part of right foot with fat layer exposed (principal); M86.9 Osteomyelitis, unspecified | CPT/HCPCS: 99212 ==

== ENCOUNTER 2022-10-23 10:51 | Outpatient (CLI) | payer MEDICARE, SELFPAY ==
--- NOTE | 2022-10-23 11:10 | XRR_ITS ---
PROCEDURE INFORMATION: Exam: XR Lumbosacral Spine Exam date and time: 10/23/2022 11:10 AM Age: 62 years old Clinical indication: Low back pain TECHNIQUE: Imaging protocol: Radiologic exam of the lumbosacral spine. Views: 2 or 3 views. Total images: 461 COMPARISON: No relevant prior studies available. FINDINGS: Tubes, catheters and devices: Prior tubal ligation noted. Bones/joints: L4-S1 Facet joint degenerative changes are present. Vertebral body heights are maintained. L1-L2 and T10-12 degenerative disc disease with disc space narrowing and osteophyte formation. No evidence of spondylolysis nor spondylolisthesis. Soft tissues: Unremarkable. Vasculature: Moderate atherosclerotic disease is evident. XR/XR lumbar spine 2-3V* [id number] IMPRESSION: Degenerative changes as described above but no acute pathology detected.
== END 2022-10-23 10:52 | disposition home or self-care (01) ==
LOC: RAD 10:53
PROVIDERS: PCP Family Medicine; Visit Provider Family Medicine
DX: M54.50 Low back pain, unspecified (principal)
CPT/HCPCS: 72100

== ENCOUNTER 2022-10-29 11:50 | Outpatient (CLI) | payer MEDICARE, SELFPAY ==
[2022-10-29 13:02] LABS: Alanine Aminotransferase 20 U/L (0-33); Albumin Level 4.6 g/dL (3.5-5.2); Alkaline Phosphatase 51 U/L (35-105); Anion Gap 14.8 (5-19); Aspartate Amino Transferase 20 U/L (0-32); Blood Urea Nitrogen 30 mg/dL (8-23); Calcium 9.9 mg/dL (8.5-10.5); Carbon Dioxide 23 mmol/L (22-29); Chloride 102 mmol/L (98-107); Chol HDL Ratio 3.78 mg/dL (0.0-4.40); Cholesterol 155 mg/dL (0-200); Globulin 3.1 g/dL (1.3-4.6); Glomerular Filtration Rate 35.4 mL/min (90-130); Glucose 117 mg/dL (65-115); HDL Cholesterol 41 mg/dL (60-100); LDL Cholesterol Calculated 72 mg/dL (50-129); LDL HDL Ratio 1.76 RATIO (0.00-3.22); Osmolality Calculated 287 mOsm/kg (285-295); Potassium 4.8 mmol/L (3.5-5.1); Sodium 135 mmol/L (136-145); Total Bilirubin 0.2 mg/dL (0.15-1.2); Total Protein 7.7 g/dL (6.6-8.7); Triglycerides 209 mg/dL (0-150)
[2022-10-29 13:52] LABS: Estmated Average Glucose 154
== END 2022-10-29 11:51 | disposition home or self-care (01) ==
PROVIDERS: PCP Family Medicine; Visit Provider Internal Medicine
DX: E11.40 Type 2 diabetes mellitus with diabetic neuropathy, unspecified (principal); Z79.4 Long term (current) use of insulin
CPT/HCPCS: 36415; 80053; 80061; 83036

== ENCOUNTER → 2022-11-04 08:37 | Outpatient (BNVA) | payer MEDICARE, SELFPAY | PROVIDERS: PCP Family Medicine; Visit Provider Internal Medicine | DX: E11.40 Type 2 diabetes mellitus with diabetic neuropathy, unspecified (principal); E11.319 Type 2 diabetes mellitus with unspecified diabetic retinopathy without macular edema; E11.22 Type 2 diabetes mellitus with diabetic chronic kidney disease; N18.30 Chronic kidney disease, stage 3 unspecified; E78.5 Hyperlipidemia, unspecified; E78.6 Lipoprotein deficiency; Z79.4 Long term (current) use of insulin | CPT/HCPCS: 99214 ==

== ENCOUNTER 2022-11-10 10:59 | Outpatient (CLI) | payer MEDICARE, SELFPAY ==
--- NOTE | 2022-11-10 11:00 | MR_ITS ---
WS: [id number] MRI LUMBAR SPINE NONCONTRAST TECHNIQUE: Sagittal T1, T2 and STIR imaging. Axial T1 and T2 imaging. CLINICAL INFORMATION: chronic low back COMPARISON: None. FINDINGS: Mild lumbar curve. No acute compression. No high-grade central canal stenosis. Disc bulging worse at T11-T12 and L1-L2. Chronic anterior wedging at T10 and T11. L1-L2: Mild annular bulging with slight impingement on the RIGHT subarticular recess and traversing R IGHT L2 nerve root. Mild facet arthropathy. Mild RIGHT foraminal narrowing. L2-L3: Mild annular bulging. Slight effacement of the ventral thecal sac. Moderate facet arthropathy with ligamentum flavum hypertrophy. Mild RIGHT foraminal narrowing. LEFT foramen is patent. L3-L4: No significant disc bulging. Moderate facet arthropathy. Mild LEFT and no significant RIGHT fo raminal narrowing. L4-L5: Mild annular bulging with slight effacement of the ventral thecal sac. Narrowing of the RIGHT greater than LEFT subarticular recess. Foramen are patent. L5-S1: No significant disc bulging. Moderate facet arthropathy. Spinal canal and foramen are patent. Disc protrusion cervical spine on the hand stoner imaging at C5-C6 with indentation on the cervical cord an d mild central canal stenosis. This can be further evaluated cervical spine MRI. Small disc protrusio ns in the mid and lower thoracic spine. Visualized pelvic bony structures: Normal. Paravertebral soft tissues: Normal. Adrenal glands are normal. MR/MR lumbar spine wo con* [id number] IMPRESSION: 1. Mild lumbar curve. No acute compression. Small disc protrusions in the lowe r thoracic spine T11-T12 and upper lumbar spine L1-L2. 2. Mild central canal stenosis L1-L2 with a small central protrusion. Impingem ent on the RIGHT subarticular recess and traversing RIGHT L2 nerve root. Mild R IGHT L1-L2 foraminal narrowing. 3. Mild annular bulging L4-L5 with slight impingement RIGHT greater than LEFT subarticular recess.. 4. Moderate to advanced facet arthropathy L2-L3, L3-L4, L4-L5, and L5-S1. 5. Central disc osteophyte protrusion C5-C6 on the cervical spine hand stoner imagin g with slight indentation on cervical cord with mild central canal stenosis. Ad ditional small protrusions in the mid and lower thoracic spine. This can be fol lowed up with cervical and thoracic spine MRI.
== END 2022-11-10 11:00 | disposition home or self-care (01) ==
LOC: RAD 11:00
PROVIDERS: PCP Family Medicine; Visit Provider Family Medicine
DX: G89.29 Other chronic pain (principal); M51.24 Other intervertebral disc displacement, thoracic region; M51.26 Other intervertebral disc displacement, lumbar region; M48.061 Spinal stenosis, lumbar region without neurogenic claudication; M47.816 Spondylosis without myelopathy or radiculopathy, lumbar region; M47.817 Spondylosis without myelopathy or radiculopathy, lumbosacral region; M25.78 Osteophyte, vertebrae
CPT/HCPCS: 72148

== ENCOUNTER → 2022-11-24 10:12 | Outpatient (BNVA) | payer MEDICARE, SELFPAY | PROVIDERS: PCP Family Medicine; Visit Provider Internal Medicine Nephrology | DX: N18.32 Chronic kidney disease, stage 3b (principal) | CPT/HCPCS: 80069; 82043; 82310; 83970; 85025 ==

== ENCOUNTER → 2022-11-30 09:15 | Outpatient (BNVA) | payer MEDICARE, SELFPAY | PROVIDERS: PCP Family Medicine; Referring Provider Family Medicine; Visit Provider Anesthesiology Pain Medicine | DX: G89.29 Other chronic pain (principal); M54.41 Lumbago with sciatica, right side; M47.816 Spondylosis without myelopathy or radiculopathy, lumbar region; M79.604 Pain in right leg | CPT/HCPCS: 99205 ==

== ENCOUNTER 2022-12-15 06:00 | Outpatient (RCR) | payer MEDICARE, SELFPAY | END 2022-12-22 23:59 | disposition home or self-care (01) | LOC: TPT 06:00 | PROVIDERS: PCP Family Medicine; Visit Provider Anesthesiology Pain Medicine | DX: M54.50 Low back pain, unspecified (principal); G89.29 Other chronic pain | CPT/HCPCS: 97163 ==

== ENCOUNTER 2022-12-23 06:00 | Outpatient (RCR) | payer MEDICARE, SELFPAY | END 2023-01-19 23:59 | disposition home or self-care (01) | LOC: TPT 06:00 | PROVIDERS: PCP Family Medicine; Visit Provider Anesthesiology Pain Medicine | DX: M54.50 Low back pain, unspecified (principal); G89.29 Other chronic pain | CPT/HCPCS: 97110 ==

== ENCOUNTER → 2023-01-05 11:05 | Outpatient (BNVA) | payer MEDICARE, SELFPAY | PROVIDERS: PCP Family Medicine; Visit Provider Podiatrist Foot & Ankle Surgery | DX: E11.40 Type 2 diabetes mellitus with diabetic neuropathy, unspecified (principal); Z79.4 Long term (current) use of insulin; M24.571 Contracture, right ankle; L60.3 Nail dystrophy; Z89.429 Acquired absence of other toe(s), unspecified side | CPT/HCPCS: 99214 ==

== ENCOUNTER 2023-01-20 06:00 | Outpatient (RCR) | payer MEDICARE, SELFPAY | END 2023-02-19 23:59 | disposition home or self-care (01) | LOC: TPT 06:00 | PROVIDERS: PCP Family Medicine; Visit Provider Anesthesiology Pain Medicine | DX: M54.50 Low back pain, unspecified (principal); G89.29 Other chronic pain | CPT/HCPCS: 97110 ==

== ENCOUNTER → 2023-02-04 14:56 | Outpatient (BNVA) | payer MEDICARE, SELFPAY | PROVIDERS: PCP Family Medicine; Visit Provider Internal Medicine | DX: E11.22 Type 2 diabetes mellitus with diabetic chronic kidney disease (principal); E11.319 Type 2 diabetes mellitus with unspecified diabetic retinopathy without macular edema; E11.40 Type 2 diabetes mellitus with diabetic neuropathy, unspecified; E78.5 Hyperlipidemia, unspecified; E78.6 Lipoprotein deficiency; N18.30 Chronic kidney disease, stage 3 unspecified; Z79.4 Long term (current) use of insulin | CPT/HCPCS: 80053; 80061; 83036 ==

== ENCOUNTER → 2023-02-09 11:10 | Outpatient (BNVA) | payer MEDICARE, SELFPAY | PROVIDERS: PCP Family Medicine; Visit Provider Anesthesiology Pain Medicine | DX: E55.9 Vitamin D deficiency, unspecified (principal); E78.5 Hyperlipidemia, unspecified; Z79.4 Long term (current) use of insulin; G89.29 Other chronic pain; E11.40 Type 2 diabetes mellitus with diabetic neuropathy, unspecified; M54.41 Lumbago with sciatica, right side; M79.604 Pain in right leg | CPT/HCPCS: 99214 ==

== ENCOUNTER 2023-02-20 06:00 | Outpatient (RCR) | payer MEDICARE, SELFPAY | END 2023-03-21 23:59 | disposition home or self-care (01) | LOC: TPT 06:00 | PROVIDERS: PCP Family Medicine; Visit Provider Anesthesiology Pain Medicine | DX: M54.50 Low back pain, unspecified (principal); G89.29 Other chronic pain | CPT/HCPCS: 97110 ==

== ENCOUNTER → 2023-03-10 13:11 | Outpatient (BNVA) | payer MEDICARE, SELFPAY | PROVIDERS: PCP Family Medicine; Visit Provider Anesthesiology Pain Medicine | DX: G89.29 Other chronic pain (principal); M54.16 Radiculopathy, lumbar region; M54.41 Lumbago with sciatica, right side; E11.9 Type 2 diabetes mellitus without complications; Z79.4 Long term (current) use of insulin | CPT/HCPCS: 64483; 64484; J1100; J3490 ==

== ENCOUNTER → 2023-03-24 12:57 | Outpatient (BNVA) | payer MEDICARE, SELFPAY | PROVIDERS: PCP Family Medicine; Visit Provider Anesthesiology Pain Medicine | DX: E11.8 Type 2 diabetes mellitus with unspecified complications (principal); E11.40 Type 2 diabetes mellitus with diabetic neuropathy, unspecified; Z79.4 Long term (current) use of insulin; M24.571 Contracture, right ankle; Z89.421 Acquired absence of other right toe(s); M54.16 Radiculopathy, lumbar region; M54.41 Lumbago with sciatica, right side; G89.29 Other chronic pain | CPT/HCPCS: 64483; 64484; 99213; J1100; J3490 ==

== ENCOUNTER → 2023-04-13 09:06 | Outpatient (BNVA) | payer MEDICARE, SELFPAY | PROVIDERS: PCP Family Medicine; Visit Provider Anesthesiology Pain Medicine | DX: G89.29 Other chronic pain (principal); M54.41 Lumbago with sciatica, right side; M79.604 Pain in right leg | CPT/HCPCS: 99214 ==

== ENCOUNTER → 2023-04-28 12:50 | Outpatient (BNVA) | payer MEDICARE, SELFPAY | PROVIDERS: PCP Family Medicine; Visit Provider Anesthesiology Pain Medicine | DX: M47.816 Spondylosis without myelopathy or radiculopathy, lumbar region (principal); G89.29 Other chronic pain; M54.41 Lumbago with sciatica, right side | CPT/HCPCS: 64493; 64494; 64495; J3490 ==

== ENCOUNTER → 2023-05-05 08:36 | Outpatient (BNVA) | payer MEDICARE, SELFPAY | PROVIDERS: PCP Family Medicine; Visit Provider Internal Medicine | DX: E11.40 Type 2 diabetes mellitus with diabetic neuropathy, unspecified (principal); E11.22 Type 2 diabetes mellitus with diabetic chronic kidney disease; E55.9 Vitamin D deficiency, unspecified; N18.30 Chronic kidney disease, stage 3 unspecified; Z79.4 Long term (current) use of insulin; N18.32 Chronic kidney disease, stage 3b | CPT/HCPCS: 80053; 80061; 82043; 82306; 83036 ==

== ENCOUNTER → 2023-05-12 09:15 | Outpatient (BNVA) | payer MEDICARE, SELFPAY | PROVIDERS: PCP Family Medicine; Visit Provider Anesthesiology Pain Medicine | DX: M25.551 Pain in right hip (principal); M25.552 Pain in left hip; M54.41 Lumbago with sciatica, right side; G89.29 Other chronic pain; E11.40 Type 2 diabetes mellitus with diabetic neuropathy, unspecified; Z79.4 Long term (current) use of insulin; E11.22 Type 2 diabetes mellitus with diabetic chronic kidney disease; N18.30 Chronic kidney disease, stage 3 unspecified; E11.319 Type 2 diabetes mellitus with unspecified diabetic retinopathy without macular edema; E78.5 Hyperlipidemia, unspecified; E78.6 Lipoprotein deficiency; E55.9 Vitamin D deficiency, unspecified | CPT/HCPCS: 73522; 99214 ==

== ENCOUNTER → 2023-05-24 08:28 | Outpatient (BNVA) | payer MEDICARE, SELFPAY | PROVIDERS: PCP Family Medicine; Visit Provider Registered Nurse | DX: E55.9 Vitamin D deficiency, unspecified (principal); N18.32 Chronic kidney disease, stage 3b | CPT/HCPCS: 80069; 82043; 82306; 82310; 83970; 85025 ==

== ENCOUNTER → 2023-06-10 08:40 | Outpatient (BNVA) | payer MEDICARE, SELFPAY | PROVIDERS: PCP Family Medicine; Visit Provider Anesthesiology Pain Medicine | DX: G89.29 Other chronic pain (principal); M54.41 Lumbago with sciatica, right side; M79.604 Pain in right leg | CPT/HCPCS: 99214 ==

== ENCOUNTER → 2023-06-28 08:03 | Outpatient (BNVA) | payer MEDICARE, SELFPAY | PROVIDERS: PCP Family Medicine; Visit Provider Podiatrist Foot & Ankle Surgery | DX: L60.8 Other nail disorders (principal); E11.40 Type 2 diabetes mellitus with diabetic neuropathy, unspecified; Z79.4 Long term (current) use of insulin; M24.571 Contracture, right ankle; M77.41 Metatarsalgia, right foot; M77.42 Metatarsalgia, left foot; M20.41 Other hammer toe(s) (acquired), right foot; M20.42 Other hammer toe(s) (acquired), left foot; M21.6X1 Other acquired deformities of right foot; M21.6X2 Other acquired deformities of left foot | CPT/HCPCS: 99214 ==

== ENCOUNTER → 2023-07-05 14:33 | Outpatient (BNVA) | payer MEDICARE, SELFPAY | PROVIDERS: PCP Family Medicine; Visit Provider Anesthesiology Pain Medicine | DX: M47.816 Spondylosis without myelopathy or radiculopathy, lumbar region (principal); M54.41 Lumbago with sciatica, right side; G89.29 Other chronic pain | CPT/HCPCS: 64635; 64636; J1030 ==

== ENCOUNTER → 2023-07-19 12:46 | Outpatient (BNVA) | payer MEDICARE, SELFPAY | PROVIDERS: PCP Family Medicine; Visit Provider Anesthesiology Pain Medicine | DX: M47.816 Spondylosis without myelopathy or radiculopathy, lumbar region (principal); M54.41 Lumbago with sciatica, right side; G89.29 Other chronic pain | CPT/HCPCS: 64635; 64636; J1030 ==

== ENCOUNTER → 2023-08-02 09:17 | Outpatient (BNVA) | payer MEDICARE, SELFPAY | PROVIDERS: PCP Family Medicine; Visit Provider Anesthesiology Pain Medicine | DX: I73.9 Peripheral vascular disease, unspecified (principal); Z86.73 Personal history of transient ischemic attack (TIA), and cerebral infarction without residual deficits; G45.0 Vertebro-basilar artery syndrome; E11.40 Type 2 diabetes mellitus with diabetic neuropathy, unspecified; Z79.4 Long term (current) use of insulin; M54.41 Lumbago with sciatica, right side; G89.29 Other chronic pain | CPT/HCPCS: 36415; 80053; 80061; 82044; 83036; 99214 ==

== ENCOUNTER → 2023-08-11 10:49 | Outpatient (BNVA) | payer MEDICARE, SELFPAY | PROVIDERS: PCP Family Medicine; Visit Provider Internal Medicine | DX: E11.40 Type 2 diabetes mellitus with diabetic neuropathy, unspecified (principal); Z79.4 Long term (current) use of insulin; E11.22 Type 2 diabetes mellitus with diabetic chronic kidney disease; N18.30 Chronic kidney disease, stage 3 unspecified; E11.319 Type 2 diabetes mellitus with unspecified diabetic retinopathy without macular edema; E78.5 Hyperlipidemia, unspecified; E78.6 Lipoprotein deficiency; E55.9 Vitamin D deficiency, unspecified | CPT/HCPCS: 99214 ==

== ENCOUNTER → 2023-08-23 12:21 | Outpatient (BNVA) | payer MEDICARE, SELFPAY | PROVIDERS: PCP Family Medicine; Referring Provider Anesthesiology Pain Medicine; Visit Provider Internal Medicine | DX: R07.9 Chest pain, unspecified (principal); I10 Essential (primary) hypertension; M79.604 Pain in right leg; Z87.891 Personal history of nicotine dependence | CPT/HCPCS: 93005; 99214 ==

== ENCOUNTER 2023-08-31 06:52 | Outpatient (CLI) | payer MEDICARE, SELFPAY ==
--- NOTE | 2023-08-31 07:15 | USCV_ITS ---
Misti Abbott Age: 63 Gender: F : 1960 Exam Date: 08/31/2023 07:10 Ordering Phys: Jan Fritz M.D ([email or web address]) Technologist: Exam Location: [facility] – [place], [place] Indication: leg pain Risk Factors: Previous Vascular Surgery: RIGHT LEFT BP: 120.0 / 70.00 BP: 120.0/ 70.00 0 0 Waveform Velocity (cm/s) Velocity (cm/s) Waveform Triphasic 156.5 Iliac Prox 142.1 Triphasic Triphasic 190.7 Iliac Mid 149.3 Triphasic Triphasic 179.9 Iliac Distal 142.1 Triphasic Triphasic 131.3 MICROSOFT EXCHANGE ADMINISTRATOR 152.9 Triphasic Triphasic 142.1 SFA Prox 127.7 Triphasic Triphasic 163.7 SFA Mid 145.7 Triphasic Triphasic 115.1 SFA Dist 116.9 Triphasic Triphasic 70.6 POP 107.9 Triphasic Biphasic 86.0 MANUFACTURING ENGINEER SUPERVISOR 98.9 Biphasic Biphasic 90.4 DPA 46.6 Biphasic 1.2 DANIELA 1.2 FINDINGS Mild diffuse plaque in the iliac and femoral arteries bilaterally Resting DANIELA 1.0 on the right side and.1.2 bilaterally Near normal Doppler flow velocities bilaterally CONCLUSIONS Normal resting ABIs bilaterally suggesting no significant arterial obstruction. Mild diffuse plaques in the iliac and femoral arteries bilaterally Dr Timmy Jackson MD [facility] (Electronically Signed) Final Date: 31 August 2023 19:12 S
== END 2023-08-31 06:53 | disposition home or self-care (01) ==
PROVIDERS: PCP Family Medicine; Visit Provider Internal Medicine
DX: M79.604 Pain in right leg (principal); M79.605 Pain in left leg; I70.203 Unspecified atherosclerosis of native arteries of extremities, bilateral legs
CPT/HCPCS: 93925

== ENCOUNTER → 2023-09-27 07:49 | Outpatient (BNVA) | payer MEDICARE, SELFPAY | PROVIDERS: PCP Family Medicine; Visit Provider Podiatrist Foot & Ankle Surgery | DX: E11.40 Type 2 diabetes mellitus with diabetic neuropathy, unspecified (principal); Z79.4 Long term (current) use of insulin; M24.571 Contracture, right ankle; Z89.421 Acquired absence of other right toe(s) | CPT/HCPCS: 99213 ==

== ENCOUNTER → 2023-11-01 08:41 | Outpatient (BNVA) | payer MEDICARE, SELFPAY | PROVIDERS: PCP Family Medicine; Visit Provider Anesthesiology Pain Medicine | DX: M54.41 Lumbago with sciatica, right side (principal); G89.29 Other chronic pain; M48.061 Spinal stenosis, lumbar region without neurogenic claudication; M47.816 Spondylosis without myelopathy or radiculopathy, lumbar region; M50.122 Cervical disc disorder at C5-C6 level with radiculopathy; M51.24 Other intervertebral disc displacement, thoracic region | CPT/HCPCS: 99214 ==

== ENCOUNTER → 2023-11-05 08:55 | Outpatient (BNVA) | payer MEDICARE, SELFPAY | PROVIDERS: PCP Family Medicine; Visit Provider Internal Medicine | DX: E11.40 Type 2 diabetes mellitus with diabetic neuropathy, unspecified (principal); E11.22 Type 2 diabetes mellitus with diabetic chronic kidney disease; N18.30 Chronic kidney disease, stage 3 unspecified; E11.319 Type 2 diabetes mellitus with unspecified diabetic retinopathy without macular edema; E78.5 Hyperlipidemia, unspecified; E78.6 Lipoprotein deficiency; E55.9 Vitamin D deficiency, unspecified; Z79.4 Long term (current) use of insulin | CPT/HCPCS: 80053; 80061; 82043; 83036 ==

== ENCOUNTER → 2023-11-08 11:47 | Outpatient (BNVA) | payer MEDICARE, SELFPAY | PROVIDERS: PCP Family Medicine; Visit Provider Internal Medicine | DX: I10 Essential (primary) hypertension (principal); E78.5 Hyperlipidemia, unspecified; E78.6 Lipoprotein deficiency; E11.22 Type 2 diabetes mellitus with diabetic chronic kidney disease; N18.30 Chronic kidney disease, stage 3 unspecified | CPT/HCPCS: 80048 ==

== ENCOUNTER → 2023-11-12 08:48 | Outpatient (BNVA) | payer MEDICARE, SELFPAY | PROVIDERS: PCP Family Medicine; Visit Provider Internal Medicine | DX: E11.42 Type 2 diabetes mellitus with diabetic polyneuropathy (principal); E11.40 Type 2 diabetes mellitus with diabetic neuropathy, unspecified; Z79.4 Long term (current) use of insulin; E11.22 Type 2 diabetes mellitus with diabetic chronic kidney disease; N18.30 Chronic kidney disease, stage 3 unspecified; E11.319 Type 2 diabetes mellitus with unspecified diabetic retinopathy without macular edema; E78.5 Hyperlipidemia, unspecified; E78.6 Lipoprotein deficiency; E55.9 Vitamin D deficiency, unspecified | CPT/HCPCS: 99214 ==

== ENCOUNTER → 2023-11-18 10:38 | Outpatient (BNVA) | payer MEDICARE, SELFPAY | PROVIDERS: PCP Family Medicine; Visit Provider Family Medicine | DX: N18.32 Chronic kidney disease, stage 3b (principal) | CPT/HCPCS: 80069; 82043; 82306; 82542 ==

== ENCOUNTER → 2024-01-03 10:40 | Outpatient (BNVA) | payer MEDICARE, SELFPAY | PROVIDERS: PCP Family Medicine; Visit Provider Podiatrist Foot & Ankle Surgery | DX: E11.40 Type 2 diabetes mellitus with diabetic neuropathy, unspecified (principal); Z79.4 Long term (current) use of insulin; Z89.421 Acquired absence of other right toe(s) | CPT/HCPCS: 99213 ==

== ENCOUNTER 2024-02-08 10:09 | Outpatient (CLI) | payer MEDICARE, SELFPAY ==
--- NOTE | 2024-02-08 10:00 | MM_ITS ---
WS: [id number] Bilateral screening 3D tomosynthesis digital mammogram, 02/08/2024 Clinical Data: Z12.39 - Encounter for other screening for malignant neop... Comparison: 07/16/2020 Findings: The breast parenchymal pattern shows fibroglandular tissue. No spiculated masses or clustered calcifi cations are seen. There are no secondary signs of carcinoma. Impression: 1. Negative bilateral mammogram unchanged. 2. Recommend annual screening mammograms. MM/[place] [id number] BIRADS: 1-Negative FOLLOW UP: 1 Year Follow-up The CAD sales store checker was used.
== END 2024-02-08 10:10 | disposition home or self-care (01) ==
LOC: MOBLMAM 10:12
PROVIDERS: PCP Family Medicine; Visit Provider Family Medicine
DX: Z12.31 Encounter for screening mammogram for malignant neoplasm of breast (principal)
CPT/HCPCS: 77063; 77067

== ENCOUNTER → 2024-03-28 09:00 | Outpatient (BNVA) | payer MEDICARE, SELFPAY | PROVIDERS: PCP Family Medicine; Visit Provider Podiatrist Foot & Ankle Surgery | DX: E11.40 Type 2 diabetes mellitus with diabetic neuropathy, unspecified (principal); Z79.4 Long term (current) use of insulin; Z89.421 Acquired absence of other right toe(s) | CPT/HCPCS: 99213 ==

== ENCOUNTER → 2024-04-10 09:56 | Outpatient (BNVA) | payer MEDICARE, SELFPAY | PROVIDERS: PCP Family Medicine; Visit Provider Family Medicine | DX: E78.5 Hyperlipidemia, unspecified (principal); E78.6 Lipoprotein deficiency; Z86.73 Personal history of transient ischemic attack (TIA), and cerebral infarction without residual deficits; I10 Essential (primary) hypertension; E11.40 Type 2 diabetes mellitus with diabetic neuropathy, unspecified; Z79.4 Long term (current) use of insulin; Z86.39 Personal history of other endocrine, nutritional and metabolic disease; N18.32 Chronic kidney disease, stage 3b | CPT/HCPCS: 80053; 80061; 82306; 83036; 84443; 85025 ==

== ENCOUNTER → 2024-04-27 08:27 | Outpatient (BNVA) | payer MEDICARE, SELFPAY | PROVIDERS: PCP Family Medicine; Visit Provider Internal Medicine Rheumatology | DX: Z82.61 Family history of arthritis (principal); M47.816 Spondylosis without myelopathy or radiculopathy, lumbar region; M54.31 Sciatica, right side; M25.511 Pain in right shoulder | CPT/HCPCS: 20610; 36415; 80053; 80061; 82044; 83036; 86200; 86431; 99204; J1010 ==

== ENCOUNTER → 2024-05-04 08:54 | Outpatient (BNVA) | payer MEDICARE, SELFPAY | PROVIDERS: PCP Family Medicine; Visit Provider Anesthesiology Pain Medicine | DX: M54.41 Lumbago with sciatica, right side (principal); G89.29 Other chronic pain | CPT/HCPCS: 99214 ==

== ENCOUNTER → 2024-05-11 08:33 | Outpatient (BNVA) | payer MEDICARE, SELFPAY | PROVIDERS: PCP Family Medicine; Visit Provider Orthopaedic Surgery | DX: M54.41 Lumbago with sciatica, right side (principal); G89.29 Other chronic pain; M47.816 Spondylosis without myelopathy or radiculopathy, lumbar region | CPT/HCPCS: 72110; 99204 ==

== ENCOUNTER → 2024-05-26 09:50 | Outpatient (BNVA) | payer MEDICARE, SELFPAY | PROVIDERS: PCP Family Medicine; Visit Provider Internal Medicine | DX: Z79.4 Long term (current) use of insulin; E11.42 Type 2 diabetes mellitus with diabetic polyneuropathy; E78.5 Hyperlipidemia, unspecified; E78.6 Lipoprotein deficiency; E11.22 Type 2 diabetes mellitus with diabetic chronic kidney disease; N18.30 Chronic kidney disease, stage 3 unspecified; E11.319 Type 2 diabetes mellitus with unspecified diabetic retinopathy without macular edema; E55.9 Vitamin D deficiency, unspecified | CPT/HCPCS: 99214 ==

== ENCOUNTER 2024-06-08 07:35 | Outpatient (CLI) | payer MEDICARE, SELFPAY ==
--- NOTE | 2024-06-08 08:00 | MR_ITS ---
WS: [id number] MRI LUMBAR SPINE NONCONTRAST HISTORY: back pain COMPARISON: 11/10/2022 TECHNIQUE: Sagittal and axial multisequence imaging is submitted. C5-6 Central disc osteophyte complex encroaching upon the ventral thecal sac and displacing the cervi wilfredo cord. Osteophytes extend into the foramina. There are additional central disc protrusions through out the thoracic spine including T5-6, T6-7, T7-8 and T11-12. Mild curvature lumbar spine. Mild increase in the lumbar lordosis. Since the prior examination there has been a significant progression of degenerative disc disease and marrow edema at the L1-2 level. There is marrow edema in the adjacent endplates of L1 and L2. No deandre ma within the disc itself. L1 retrolisthesis by 2 to 3 mm. Fluid in the facet joints on the RIGHT at L1-2 and L2-3. Smaller amount of fluid in the LEFT facet joint of L1-2. Conus terminates normally at L1-2 disc level. L1-L2: Moderate annular disc bulging with osteophytic ridging and facet arthritis. Broad-based modera te size RIGHT foraminal disc protrusion. Disc extends into the subarticular recesses. Moderate centra l, bilateral subarticular recess and bilateral foraminal stenosis. Slightly more significant RIGHT fo raminal stenosis. There is disc contacting the traversing L2 nerve roots and also slightly contacting the exiting RIGHT L1 nerve root. These findings have progressed since the prior study. L2-L3: Mild annular disc bulging with moderate ligamentum flavum and facet arthritis. Slightly greate r facet joint arthropathy on the RIGHT encroaching into the thecal sac. Mild central, bilateral subar ticular recess and foraminal stenosis. Slightly greater encroachment upon the traversing RIGHT L3 ner ve root. L3-L4: Mild disc bulging with ligamentum flavum and facet arthritis. Greater facet joint arthritis on the LEFT. Mild central and bilateral subarticular recess and foraminal stenosis, LEFT greater than R IGHT. L4-L5: Diffuse annular disc bulging with marked ligamentum flavum and facet arthritis. Narrowing of t he central canal and subarticular recesses. Mild foraminal narrowing. L5-S1: Mild annular disc bulging with encroachment upon the ventral thecal sac. No significant stenos is. Moderate facet arthritis. Paravertebral soft tissues are negative. MR/MR lumbar spine wo con* [id number] IMPRESSION: 1. Significant progression of degenerative disc disease and marrow edema at L1 -2 since 11/10/2022. Marrow edema is likely reactive. There is no fluid in the L1-2 disc. 2. L1-2: Broad-based moderate-sized RIGHT foraminal disc protrusion along with annular disc bulging. Marked facet arthritis. Findings resulting in moderate c entral, bilateral subarticular recess and foraminal stenosis. Slightly greater stenosis on the RIGHT. There is contact on the traversing L2 nerve roots and al so of the exiting RIGHT L1 nerve root. 3. L2-3: Mild central, bilateral subarticular recess and foraminal stenosis. 4. L3-4: Mild central, bilateral subarticular recess and foraminal stenosis, L EFT greater than RIGHT. 5. Significant facet joint arthritis throughout the lumbar spine. 6. Mild synovitis in the facet joints as above at L1-2 and L2-3.
== END 2024-06-08 07:36 | disposition home or self-care (01) ==
LOC: RAD 07:39
PROVIDERS: PCP Family Medicine; Visit Provider Orthopaedic Surgery
DX: Z01.818 Encounter for other preprocedural examination (principal); Z09 Encounter for follow-up examination after completed treatment for conditions other than malignant neoplasm; M48.062 Spinal stenosis, lumbar region with neurogenic claudication; M47.816 Spondylosis without myelopathy or radiculopathy, lumbar region; M54.41 Lumbago with sciatica, right side; G89.29 Other chronic pain; M51.36 Other intervertebral disc degeneration, lumbar region
CPT/HCPCS: 36415; 72148; 80053; 81001; 83036; 85025; 99214

== ENCOUNTER 2024-06-14 05:52 | Day surgery (SDC) | payer MEDICARE, SELFPAY ==
[2024-06-14] VITALS (11 sets, daily range): BP systolic 110–140; BP diastolic 49–97; PULSE 58–86; RESP 16–18; TEMP 36.1–36.3; O2SAT 93–99; BMI 28.2
[2024-06-14 06:33] LABS: Glucose Point of Care 123 mg/dL (70-110)
[2024-06-14] MEDS: sodium chloride 0.9% 1,000 ML 30 ML IV (06:40)
--- NOTE | 2024-06-14 06:41 | W.PM.OPSUD ---
Surgery/Procedure H&P Update DATE OF PROCEDURE: June 14, 2024 DATE H&P PERFORMED: 06/08/24 H&P UPDATE INFORMATION: I have reviewed H&P completed within last 30 days, I have examined patient prior to procedure and No changes to prior documentation PREOP DIAGNOSIS: Lumbar stenosis with neurogenic claudication PLANNED PROCEDURE: Operation Date: 06/14/24 07:00 Proposed Procedures p Lumbar Spine Decompression Lumbar Decompression(Not Applicable) - Bennett Woods DO
--- NOTE | 2024-06-14 06:45 | P.ANESASSM_ITS ---
Pre-Anesthetic Assessment Height/Weight: Height 1.75 m Weight 86.636 kg Temp Pulse Resp BP Pulse Ox O2 Del Method 97.0 F L 72 17 133/76 98 Room Air 06/14/24 06:16 06/14/24 06:16 06/14/24 06:16 06/14/24 06:16 06/14/24 06:16 06/14/24 06:16 Preop Diagnosis: Lumbar stenosis with neurogenic claudication Operation Date: 06/14/24 07:00 Proposed Procedures p Lumbar Spine Decompression Lumbar Decompression(Not Applicable) - Bennett Woods, DO Familial anesthetic complications: None Was Beta Malia taken within 24 hours: N/A Was Clonidine taken within 24 hours: N/A Last intake: Intake Last Liquid Date 06/13/24 Last Liquid Time 23:30 Last Solid Date 06/13/24 Last Solid Time 23:30 Social No alcohol and No tobacco Exam alert, oriented x 3, clear to auscultation bilaterally and regular rate & rhythm CV/HEM Hypertension Chronic Renal Insufficiency Metabolic Diabetes Mellitus and Hyperlipidemia Neuropsych Transient Ischemic Attack (X2) Anesthetic Plan ASA status: 3 Anesthesia: General Risk of > 500 ml blood loss (7ml/kg in children): No Medications/Allergies Home Medications Medication Instructions Recorded Confirmed Last Taken Type aspirin 325 mg tablet 81 mg PO DAILY 08/22/20 06/09/24 06/09/24 History vit C 250 mg-vit E 90 mg-zinc 40 1 tab PO BID 11/04/22 06/09/24 06/09/24 History mg-copper 1 tr-mlerdk-oypnyr capsule (PreserVision AREDS-2) icosapent ethyl 1 gram capsule 2 g (2 x 1 gram) PO BID #360 caps 11/06/22 06/09/24 06/09/24 Rx (Vascepa) cholecalciferol (vitamin D3) 1,250 5,000 unit PO DAILY #30 caps 02/01/23 06/09/24 06/09/24 Rx mcg (50,000 unit) capsule coenzyme Q10 100 mg capsule 100 mg PO DAILY 02/09/23 06/09/24 06/09/24 History (CoQ-10) sodium bicarbonate 650 mg tablet 650 mg PO BID 06/10/23 06/09/24 06/09/24 History Custom Inserts with Toe Filler #1 ea 06/28/23 06/08/24 Unknown Rx faricimab-svoa 6 mg/0.05 mL intravitreal 01/11/24 06/08/24 Unknown History intravitreal solution (Vabysmo) blood sugar diagnostic (Accu-Chek #300 ea 04/18/24 06/08/24 Unknown Rx Guide test strips) insulin aspart U-100 100 unit/mL 10 unit (0.1 mL) SUBCUT TID 90 04/19/24 06/09/24 06/09/24 Rx (3 mL) subcutaneous pen (Novolog days #27 mL FlexPen U-100 Insulin aspart) blood-glucose meter,continuous #1 ea 06/05/24 06/08/24 Unknown Rx (Dexcom G7 Veneer Sander) blood-glucose sensor (Dexcom G7 #3 ea 06/05/24 06/08/24 Unknown Rx Sensor device) dapagliflozin propanediol 5 mg 5 mg PO DAILY #90 tabs 06/05/24 06/09/24 06/09/24 Rx tablet (Farxiga) clopidogrel 75 mg tablet 75 mg PO DAILY 06/09/24 06/09/24 06/09/24 History insulin glargine 100 unit/mL (3 20 unit SUBCUT DAILY 06/09/24 06/09/24 06/09/24 History mL) subcutaneous pen (Lantus Solostar U-100 Insulin) linagliptin 5 mg tablet (Tradjenta) 5 mg PO DAILY 06/09/24 06/09/24 06/09/24 History lisinopril 2.5 mg tablet 2.5 mg PO BID 06/09/24 06/09/24 06/09/24 History rosuvastatin 10 mg tablet 10 mg PO DAILY 06/09/24 06/09/24 06/09/24 History Allergies Allergy/AdvReac Type Severity Reaction Status Date / Time ibuprofen Allergy Unknown Verified 06/14/24 06:24 Penicillins Allergy Unknown Verified 06/08/24 11:03 codeine AdvReac Knocks her Verified 06/08/24 11:03 out [facility] Anesthesia Medical History Degenerative joint disease (DJD) of lumbar spine Subacromial bursitis Joint pain Stroke 1999 and 2019 Hx-TIA (transient ischemic attack) Hyperlipidemia with low HDL Type 2 diabetes mellitus with diabetic neuropathy, unspecified Surgical History Status post colonoscopy with polypectomy (08/08/20) H/O esophagogastroduodenoscopy (08/08/20) H/O tubal ligation History of amputation of great toe right 07/25/2019 Family History Sister CAD (coronary artery disease) Other Diabetes Heart disease Hypertension Rheumatoid arthritis Denies family history of Lupus (systemic lupus erythematosus) Osteoporosis Migraines Chronic kidney disease (CKD) Cancer Stroke Social History Smoking and tobacco/nicotine status: never used tobacco/nicotine Second hand smoke exposure: No Alcohol intake: never Substance/Drug Use: never Household members: spouse Marital status: Current occupational status: unemployed Data Anesthesia Cardiac Studies: Cardiac Event Monitor 09/06/20
[2024-06-14] MEDS: clindamycin 900 MG/50 ML PREMIX 100 MG IV (06:59)
[2024-06-14] MEDS: lidocaine-epi 1% 20 mL INJ INJECTION (07:43)
--- NOTE | 2024-06-14 08:52 | P.OP_ITS ---
Operative Report Date of procedure: June 14, 2024 Pre-op diagnosis: Lumbar stenosis with neurogenic claudication Post-op diagnosis: same Procedure done: 1. L1-2 laminectomy with partial facetectomy 2. L2-3 laminectomy and partial facetectomy Surgeon: Bennett Woods DO Estimated blood loss (mL): 25 Procedure: 1. L1-2 laminectomy with partial facetectomy 2. L2-3 laminectomy and partial facetectomy Patient is brought to the operative suite. After undergoing anesthesia they are placed in the prone position. All areas of impingement are well padded. Patient is then prepped and draped in the normal sterile fashion. A skin incision is made over the L1-2 level. This is confirmed under c-arm guidance. A series of dilators are passed and the tubular retractor is docked on the L1 lamina. A bovie is used to clear the soft tissue off the lamina and the L 1/2 facet joint. A high speed melany is then used to perform the laminectomy and take down the medial aspect of the L 1/2 facet joint. A kerrison rongeure was then used to take down the remaining lamina and smooth the edge of the laminectomy up to the point where the ligamentum flavum attaches. Attention was then brought to the medial aspect of the facet joint. The remaining medial aspect of the superior and inferior aspect of the facet joint were taken down with the kerrison from the pedicle of L1 to L 2. The facet joint had significant hypertrophy. Attention was then brought to the Ligamentum Flavum. The ligament was taken down from the lamina of L1 to L2 and out medially to the remaining facet joint. The ligament was thick. The dura was then exposed. The dura was in good repair. The L1 nerve was then traced with a curette out the L1/2 foramen and found to be adequately decompressed. The L2 nerve was traced with a curette around the L2 pedicle. The lateral recess was opened with a kerrison helping to further decompress the L2 nerve. Wound is then irrigated copiously with saline and surgiflo is used to stop any bleeding. The tubular retractor is removed and the A skin incision is made over the L2-3 level. This is confirmed under c-arm guidance. A series of dilators are passed and the tubular retractor is docked on the L2 lamina. A bovie is used to clear the soft tissue off the lamina and the L 2/3 facet joint. A high speed melany is then used to perform the laminectomy and take down the medial aspect of the L 2/3 facet joint. A kerrison rongeure was then used to take down the remaining lamina and smooth the edge of the laminectomy up to the point where the ligamentum flavum attaches. Attention was then brought to the medial aspect of the facet joint. The remaining medial aspect of the superior and inferior aspect of the facet joint were taken down with the kerrison from the pedicle of L2 to L 3. The facet joint had significant hypertrophy. Attention was then brought to the Ligamentum Flavum. The ligament was taken down from the lamina of L2 to L3 and out medially to the remaining facet joint. The ligament was thick. The dura was then exposed. The dura was in good re pair. The L2 nerve was then traced with a curette out the L2/3 foramen and found to be adequately decompressed. The L3 nerve was traced with a curette around the L3 pedicle. The lateral recess was opened with a kerrison helping to further decompress the L3 nerve. Wound is then irrigated copiously with saline and surgiflo is used to stop any bleeding. The tubular retractor is removed and the wound is closed with vicryl and monocryl suture. Glue is then used to protect the wound. A sterile dressing is then placed. Patient was then placed in the supine position and transferred to the PACU in stable condition.
--- NOTE | 2024-06-14 09:15 | ANE.PACU2 ---
Inpatient post-anesthesia follow up: Airway intact: Yes Vital signs: Temperature 97.2 F Pulse Rate 58 Respiratory Rate 17 Blood Pressure 110/49 Pulse Oximetry 94 Oxygen Delivery Me thod Room Air Oxygen Flow Rate 10 Fraction of Inspir ed Oxygen Hydration adequate: Yes Nausea and vomiting: No Pain level: 1 Mental status: Baseline
[2024-06-14] MEDS: HYDROcodone-acetaminophen 5-325 mg Tablet 1 TAB PO (09:54)
--- NOTE | 2024-06-14 13:11 | XR_ITS ---
WS: [id number] XR lumbar spine 2-3V* [id number] REASON FOR EXAM: OR PIC, Decompression FINDINGS: Surgical instrument overlies the right L2-L3 interspace. XR/XR lumbar spine 2-3V* [id number] IMPRESSION: Lumbar level localization and surgery.
== END 2024-06-14 10:20 | disposition home or self-care (01) ==
PROVIDERS: PCP Family Medicine; Visit Provider Orthopaedic Surgery
PROC: (CPT 63005; principal; 2024-06-14 07:00)
DX: M48.062 Spinal stenosis, lumbar region with neurogenic claudication (principal); I10 Essential (primary) hypertension; E78.5 Hyperlipidemia, unspecified; Z86.73 Personal history of transient ischemic attack (TIA), and cerebral infarction without residual deficits; Z79.82 Long term (current) use of aspirin; Z79.4 Long term (current) use of insulin; E11.40 Type 2 diabetes mellitus with diabetic neuropathy, unspecified
CPT/HCPCS: 63047; 63048; 36416; 72100; 76000; 82962; J1100; J2405; J2704; J2710; J3010; J3490; J7030

== ENCOUNTER → 2024-07-04 11:15 | Outpatient (BNVA) | payer MEDICARE, SELFPAY | PROVIDERS: PCP Family Medicine; Visit Provider Orthopaedic Surgery | DX: Z98.890 Other specified postprocedural states (principal) | CPT/HCPCS: 99024 ==

== ENCOUNTER → 2024-07-10 09:35 | Outpatient (BNVA) | payer MEDICARE, SELFPAY | PROVIDERS: PCP Family Medicine; Visit Provider Family Medicine | DX: Z01.89 Encounter for other specified special examinations (principal) | CPT/HCPCS: 85025 ==

== ENCOUNTER → 2024-08-01 10:42 | Outpatient (BNVA) | payer MEDICARE, SELFPAY | PROVIDERS: PCP Family Medicine; Visit Provider Orthopaedic Surgery | DX: Z98.890 Other specified postprocedural states (principal) | CPT/HCPCS: 99024 ==

== ENCOUNTER → 2024-08-24 10:26 | Outpatient (BNVA) | payer MEDICARE, SELFPAY | PROVIDERS: PCP Family Medicine; Visit Provider Internal Medicine | DX: N18.32 Chronic kidney disease, stage 3b (principal); E55.9 Vitamin D deficiency, unspecified; E11.22 Type 2 diabetes mellitus with diabetic chronic kidney disease; N18.30 Chronic kidney disease, stage 3 unspecified; E11.42 Type 2 diabetes mellitus with diabetic polyneuropathy; E11.40 Type 2 diabetes mellitus with diabetic neuropathy, unspecified; Z79.4 Long term (current) use of insulin; E78.5 Hyperlipidemia, unspecified; E78.6 Lipoprotein deficiency | CPT/HCPCS: 80053; 80061; 80069; 82043; 82310; 83036; 83970; 85025 ==

== ENCOUNTER → 2024-08-29 09:47 | Outpatient (BNVA) | payer MEDICARE, SELFPAY | PROVIDERS: PCP Family Medicine; Visit Provider Internal Medicine | DX: Z79.4 Long term (current) use of insulin; E78.5 Hyperlipidemia, unspecified; E78.6 Lipoprotein deficiency; E11.42 Type 2 diabetes mellitus with diabetic polyneuropathy; E11.22 Type 2 diabetes mellitus with diabetic chronic kidney disease; N18.30 Chronic kidney disease, stage 3 unspecified; E11.319 Type 2 diabetes mellitus with unspecified diabetic retinopathy without macular edema; E55.9 Vitamin D deficiency, unspecified | CPT/HCPCS: 99214 ==

== ENCOUNTER → 2024-09-12 08:19 | Outpatient (BNVA) | payer MEDICARE, SELFPAY | PROVIDERS: PCP Family Medicine; Visit Provider Orthopaedic Surgery | DX: Z98.890 Other specified postprocedural states (principal) | CPT/HCPCS: 99024 ==

== ENCOUNTER → 2024-09-26 08:49 | Outpatient (BNVA) | payer MEDICARE, SELFPAY | PROVIDERS: PCP Family Medicine; Visit Provider Podiatrist Foot & Ankle Surgery | DX: E11.42 Type 2 diabetes mellitus with diabetic polyneuropathy (principal); E11.40 Type 2 diabetes mellitus with diabetic neuropathy, unspecified; Z79.4 Long term (current) use of insulin; E11.22 Type 2 diabetes mellitus with diabetic chronic kidney disease; N18.30 Chronic kidney disease, stage 3 unspecified; E55.9 Vitamin D deficiency, unspecified; Z89.429 Acquired absence of other toe(s), unspecified side; Z89.421 Acquired absence of other right toe(s) | CPT/HCPCS: 99213 ==

== ENCOUNTER 2024-10-03 07:54 | Outpatient (CLI) | payer MEDICARE, SELFPAY ==
--- NOTE | 2024-10-03 08:00 | MR_ITS ---
WS: [id number] MRI LUMBAR SPINE NONCONTRAST TECHNIQUE: Sagittal T1, T2 and STIR imaging. Axial T1 and T2 imaging. CLINICAL INFORMATION: back pain COMPARISON: MRI 06/08/2024 FINDINGS: Mild lumbar curve. No acute compression. Degenerative endplate edema at L1-2 with disc desiccation. R IGHT hemilaminectomies at L1-2 and L2-3 appear new from previous. Central disc protrusion T11-T12. Th is appears unchanged. L1-L2: Interval RIGHT hemilaminectomy. Spinal canal has been decompressed. Mild facet arthropathy. St able moderate RIGHT and mild LEFT foraminal narrowing. Slight residual narrowing of the subarticular recess. L2-L3: RIGHT hemilaminectomy is new from previous. Spinal canal and foramen are patent. Moderate face t arthropathy. L3-L4: Moderate facet arthropathy. Mild LEFT proximal foraminal narrowing. Spinal canal and RIGHT for amen are patent. L4-L5: Mild annular bulging. Mild central canal stenosis. Narrowing of the RIGHT subarticular recess. Mild RIGHT and no significant LEFT foraminal narrowing. L5-S1: No significant disc bulging. Moderate facet arthropathy. Spinal canal and foramen are patent. Visualized pelvic bony structures: Normal. Paravertebral soft tissues: Normal. Shallow central protrusions in the cervical spine recreation engineer imaging at C5-C6 and C6-C7. Small central pro trusions in the mid thoracic spine seen on recreation engineer imaging. MR/MR lumbar spine wo con* [id number] IMPRESSION: 1. Postoperative changes RIGHT hemilaminectomies L1-2 and L2-3 are new from pr evious. Spinal canal has been decompressed. 2. Moderate RIGHT L1-2 foraminal narrowing is stable. 3. Mild narrowing RIGHT subarticular recess L4-5 is unchanged with mild RIGHT foraminal narrowing. 4. Moderate facet arthropathy L3-L5. 5. No other significant changes.
== END 2024-10-03 07:55 | disposition home or self-care (01) ==
LOC: RAD 07:55
PROVIDERS: PCP Family Medicine; Visit Provider Orthopaedic Surgery
DX: M51.24 Other intervertebral disc displacement, thoracic region (principal); M51.360 Other intervertebral disc degeneration, lumbar region with discogenic back pain only; M99.63 Osseous and subluxation stenosis of intervertebral foramina of lumbar region; M47.896 Other spondylosis, lumbar region; M50.20 Other cervical disc displacement, unspecified cervical region; Z98.890 Other specified postprocedural states
CPT/HCPCS: 72148

== ENCOUNTER → 2024-10-05 10:49 | Outpatient (BNVA) | payer MEDICARE, SELFPAY | PROVIDERS: PCP Family Medicine; Visit Provider Orthopaedic Surgery | DX: Z09 Encounter for follow-up examination after completed treatment for conditions other than malignant neoplasm (principal) | CPT/HCPCS: 99214 ==

== ENCOUNTER 2024-10-12 12:29 | Observation (INO) | payer MEDICARE, SELFPAY ==
[2024-10-12 12:37] VITALS: BP 138/95; PULSE 83; TEMP 36.7; O2SAT 99; BMI 28.6
--- NOTE | 2024-10-12 12:37 | XR_ITS ---
WS: [id number] Exam: XR chest 1V portable [id number] Date/Time of Exam: 10/12/2024 12:41 PM Reason For Exam: cva Comparison 07/06/2019. Lungs are clear and fully inflated. Heart size top limits normal. The mediastinum is normal in contou r. No pleural effusions. Bony structures are intact. XR/XR chest 1V portable [id number] IMPRESSION: 1. No acute cardiopulmonary finding.
--- NOTE | 2024-10-12 12:37 | CTR_ITS ---
PROCEDURE INFORMATION: Exam: CT Head Without Contrast Exam date and time: 10/12/2024 12:47 PM Age: 64 years old Clinical indication: Dizziness; Patient HX: Dizzy and fatigued; No known recent trauma; Additional info: CVA TECHNIQUE: Imaging protocol: Computed tomography of the head without contrast. Radiation optimization: All CT scans at this facility use at least one of these dose optimization techniques: automated exposure control; mA and/or kV adjustment per patient size (includes targeted exams where dose is matched to clinical indication); or iterative reconstruction. COMPARISON: MR head wo con* [id number] 08/06/2020 9:04 AM RADIATION DOSE METRICS: Total DLP (mGy-cm): 1101.7 FINDINGS: Brain: Multiple small chronic left cerebellar infarcts are identified. There is no evidence of acute parenchymal hemorrhage, extra-axial collection, or acute infarction. There is no mass effect, midline shift, or downward herniation. Cerebral ventricles: No ventriculomegaly. Paranasal sinuses: Visualized sinuses are unremarkable. No fluid levels. Mastoid air cells: Visualized mastoid air cells are well aerated. Bones: Unremarkable. No acute fracture. Soft tissues: Unremarkable. CT/CT head wo con* [id number] IMPRESSION: 1. No evidence of acute intracranial process. 2. Small chronic left cerebellar infarcts.
--- NOTE | 2024-10-12 12:38 | ECG_ITS ---
[facility] 2024[facility]10[facility]12 Pat Name: Misti Abbott Department: Room: Gender: Female Boarder Machine: : [id number] Requested By: Eliazar Rivas Order Number: [id number] Brian MD: Jan Fritz M.D. Measurements Intervals [place] Rate: 75 P: 50 NC: 153 QRS: 6 QRSD: 74 T: 48 QT: 382 QTc: 427 Interpretive Statements SINUS RHYTHM MINIMAL VOLTAGE CRITERIA FOR LVH, CONSIDER NORMAL VARIANT [MEETS CRITERIA IN ONE OF: R(aVL), S(V1), R(V5), R(V5/V6)+S(V1)] Compared to ECG 08/23/2023 12:43:55 No significant changes Electronically Signed On 10-14-2024 10:29:52 DIE MACHINE OPERATOR by Jan Fritz M.D. [id number]
--- NOTE | 2024-10-12 12:39 | ED_ITS ---
HPI - Neuro Symptoms/Deficit 2 General: Chief Complaint: Dizziness Stated Complaint: Sent by Rosy neol stroke Time Seen by Provider: 10/12/24 12:34 Source: patient Mode of arrival: ambulatory Limitations: no limitations History of Present Illness: 64-year-old female states over the last 2 days she has been having blurred vision she is also had some dizziness and difficulty walking as noted here she has right facial droop she is unsure how long it has been going on the states her symptoms started 2 days ago. She denies any headache denies any fever denies any chest pain. Associated symptoms: Deny chest pain, headache(s), nausea or vomiting Related Data Home Medications Medication Instructions Recorded Confirmed vit C 250 mg-vit E 90 mg-zinc 40 1 tab PO BID 11/04/22 10/12/24 mg-copper 1 gq-wrsaua-xdweki capsule (PreserVision AREDS-2) coenzyme Q10 100 mg capsule 100 mg PO DAILY 02/09/23 10/12/24 (CoQ-10) sodium bicarbonate 650 mg tablet 650 mg PO BID 06/10/23 10/12/24 faricimab-svoa 6 mg/0.05 mL 0.05 ml intravitreal Q6M 01/11/24 10/12/24 intravitreal solution (Vabysmo) latanoprost 0.005 % eye drops 1 drp ophthalmic (eye) DAILY 10/05/24 10/12/24 aspirin 81 mg tablet,delayed 81 mg PO DAILY 10/12/24 10/12/24 release dexamethasone 0.7 mg intravitreal 0.7 implant intravitreal .Q3Y 10/12/24 10/12/24 implant (Ozurdex) insulin glargine 100 unit/mL (3 See Rx Instructions .Route .COMPLEX 10/12/24 10/12/24 mL) subcutaneous pen (Lantus Solostar U-100 Insulin) linagliptin 5 mg tablet (Tradjenta) 5 mg PO DAILY 10/12/24 10/12/24 omega 4-orp-hxo-fish oil 1,000 mg 2,000 cap PO DAILY 10/12/24 10/12/24 (120 mg-180 mg) capsule (Fish Oil) Previous Rx's Medication Instructions Recorded cholecalciferol (vitamin D3) 1,250 5,000 unit PO DAILY #30 caps 02/01/23 mcg (50,000 unit) capsule Custom Inserts with Toe Filler #1 ea 06/28/23 blood sugar diagnostic (Accu-Chek #300 ea 04/18/24 Guide test strips) insulin aspart U-100 100 unit/mL 10 unit (0.1 mL) SUBCUT TID 90 04/19/24 (3 mL) subcutaneous pen (Novolog days #27 mL FlexPen U-100 Insulin aspart) blood-glucose meter,continuous #1 ea 06/05/24 (Dexcom G7 Devops Consultant) blood-glucose sensor (Dexcom G7 #3 ea 06/05/24 Sensor device) dapagliflozin propanediol 5 mg 5 mg PO DAILY #90 tabs 06/05/24 tablet (Farxiga) clopidogrel 75 mg tablet 75 mg PO DAILY #90 tabs 07/10/24 lisinopril 2.5 mg tablet 2.5 mg PO BID #180 tabs 07/10/24 rosuvastatin 10 mg tablet 10 mg PO DAILY #90 tabs 07/10/24 mupirocin 2 % topical ointment 1 applic topical TID PRN wound 09/26/24 care #15 grams Allergies Allergy/AdvReac Type Severity Reaction Status Date / Time ibuprofen Allergy Unknown Verified 10/12/24 12:42 Penicillins Allergy Unknown Verified 10/12/24 12:42 codeine AdvReac Knocks her Verified 10/12/24 12:42 out Review of Systems 2 Const: Denies: fever(s), chills, body aches or change in appetite Eyes: Reports: blurry vision ENMT: Denies: throat pain or dental pain Card: Denies: chest pain Resp: Denies: dyspnea GI: Denies: abdominal pain, nausea, vomiting or diarrhea : Denies: dysuria Musc: Denies: neck pain or back pain Skin/Breast: Denies: rash Neuro: Reports: dizziness; Denies: headache(s) PFSH ED 2 PFSH: Medical History (Updated 10/12/24 @ 13:59 by Eliazar Rivas MD) History of subdural hematoma (post traumatic) Degenerative joint disease (DJD) of lumbar spine Subacromial bursitis Joint pain Stroke 1999 and 2019 Hx-TIA (transient ischemic attack) Hyperlipidemia with low HDL Type 2 diabetes mellitus with diabetic neuropathy, unspecified Surgical History (Updated 10/12/24 @ 11:16 by Elisa Gallegos MD) History of lumbar surgery Status post colonoscopy with polypectomy (08/08/20) H/O esophagogastroduodenoscopy (08/08/20) H/O tubal ligation History of amputation of great toe right 07/25/2019 Family History (Updated 10/12/24 @ 11:18 by Elisa Gallegos MD) Sister CAD (coronary artery disease) Father Rheumatoid arthritis Other Diabetes Heart disease Hypertension Denies family history of Lupus (systemic lupus erythematosus) Osteoporosis Migraines Chronic kidney disease (CKD) Cancer Stroke Social History (Updated 10/12/24 @ 11:21 by Elisa Gallegos MD) Smoking and tobacco/nicotine status: former use of tobacco/nicotine Quit status (tobacco/nicotine): has quit using Year quit tobacco: 1999 Second hand smoke exposure: No Alcohol intake: never Substance/Drug Use: never Household members: spouse Marital status: Marital status details: 22 year as of 2023 Number of children: 3 Number of grandchildren: 2 Current occupational status: unemployed 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 Pets and animals: Yes Pets & animals: cat(s) Special natasha needs: No Agree to transfusion: Yes NIH stroke score 2 NIHSS: Level Of Consciousness - 1a: 0 Level Of Consciousness Questions - 1b: Both Correct Level Of Consciousness Commands - 1c: Both Correct Best Gaze - 2: Normal Visual Ferrell - 3: No Visual Loss Facial Palsy - 4: P artial Paralysis Motor Arm Right - 5: No Drift Motor Arm Left - 5: No Drift Motor Leg Right - 6: No Drift Motor Leg Left - 6: No Drift Limb Ataxia - 7: Absent Sensory - 8: Normal Best Language - 9: No Aphasia D ysarthia - 10: Normal Extinction And Inattention - 11: 0 Score: Total Score: 2 Physical Exam 2 Const: COMMON NORMALS: no acute distress, patient oriented x3 and healthy appearing HENMT: COMMON NORMALS: normocephalic and atraumatic HEAD & SCALP: n ormocephalic and atraumatic Eye: COMMON NORMALS: Equal, round and reactive pupils present and EOMs intact bilaterally PUPIL: Yes Equal, round and reactive pupils present Neck/C-Spine: COMMON NORMALS: full ROM and supple Chest: COMMONS NORMALS: normal inspection of the chest Resp: COMMON NORMALS: normal respiratory effort, No retractions, No use of accessory muscles and clear to auscultation bilaterally AUSCULTATION: clear to auscultation bilaterally Cardio: COMMON NORMALS: regular rate, regular rhythm and No murmurs present (Cardio) RATE: regular rate RHYTHM: regular rhythm GI: COMMON NORMALS: Normal to inspection, nondistended, normoactive bowel sounds present, Soft to palpation, non-tender and no masses PALPATION: Yes Soft to palpation Extremity: COMMON NORMALS: normal to inspection and full ROM Neuro: COMMON NORMALS: patient oriented x3 and moves all extremities OTHER: Right-sided facial droop noted she also has a difficult time walking Psych: COMMON NORMALS: mental status grossly normal, Normal thought process present and cooperative THOUGHT PROCESS: Normal thought process present Skin: COMMON NORMALS: no rashes or lesions noted and no wounds GENERAL SKIN EXAM: no rashes or lesions noted Course 2 Vital Signs: Vital signs: Vital Signs Temperature 98.0 F 10/12/24 12:37 Pulse Rate 83 10/12/24 12:37 Blood Pressure 138/95 10/12/24 12:37 Pulse Oximetry 99 10/12/24 12:37 Oxygen Delivery Me thod Room Air 10/12/24 12:37 MDM - Neuro Symptoms/Deficit Medical Decision Making Patient presents here with dizziness she also has difficulty walking and right sided facial droop head CT here is normal she is not a treatment candidate as her last known well was 2 days ago and did speak to hospitalist will admit for observation for possible stroke Medical Records I reviewed the patient's medical records. Lab Data I reviewed the patient's lab results. 10/12/24 12:40 10/12/24 12:40 Radiology Impressions Chest X-Ray 10/12/24 12:37 IMPRESSION: 1. No acute cardiopulmonary finding. Head CT 10/12/24 12:37 IMPRESSION: 1. No evidence of acute intracranial process. 2. Small chronic left cerebellar infarcts. Laboratory Results WBC 8.02 10^3/uL (3.29-11.43) 10/12/24 12:40 RBC 5.11 10^6/uL (3.85-5.65) 10/12/24 12:40 Hgb 13.30 g/dL (11.27-16.99) 10/12/24 12:40 Hct 42.8 % (36-47) 10/12/24 12:40 MCV 83.8 fl (85-98) L 10/12/24 12:40 MCH 26.0 pg (27-33) L 10/12/24 12:40 MCHC 31.1 g/dL (30-55) 10/12/24 12:40 RDW 13.0 % (12.1-15.1) 10/12/24 12:40 Plt Count 228 10^3/cmm (157-399) 10/12/24 12:40 MPV 12.0 fL (7.4-10.4) H 10/12/24 12:40 Neut % (Auto) 60.1 % 10/12/24 12:40 Lymph % (Auto) 23.7 % 10/12/24 12:40 [place] % (Auto) 11.5 % 10/12/24 12:40 Eos % (Auto) 3.4 % 10/12/24 12:40 Baso % (Auto) 0.9 % 10/12/24 12:40 Neut # (Auto) 4.83 10^3/uL (1.8-7.7) 10/12/24 12:40 Lymph # (Auto) 1.9 10^3/uL (0.8-4.8) 10/12/24 12:40 [place] # (Auto) 0.9 10^3/uL (0.2-0.9) 10/12/24 12:40 Eos # (Auto) 0.3 10^3/uL (0.0-0.8) 10/12/24 12:40 Baso # (Auto) 0.1 10^3/uL (0.0-0.1) 10/12/24 12:40 Nucleated RBC % (auto) 0 % 10/12/24 12:40 Nucleated RBCs # 0.0 /100WBC 10/12/24 12:40 PT 12.70 SECONDS (12.1-14.9) 10/12/24 12:40 INR 0.92 (0.8-1.2) 10/12/24 12:40 Sodium 137 mmol/L (136-145) 10/12/24 12:40 Potassium 4.8 mmol/L (3.5-5.1) 10/12/24 12:40 Chloride 103 mmol/L (98-107) 10/12/24 12:40 Carbon Dioxide 22 mmol/L (22-29) 10/12/24 12:40 Anion Gap 16.8 (5-19) 10/12/24 12:40 BUN 32 mg/dL (8-23) H 10/12/24 12:40 Creatinine 1.7 mg/dL (0.5-0.9) H 10/12/24 12:40 GFR Calculation 30.5 mL/min (90-130) L 10/12/24 12:40 Glucose 117 mg/dL (65-115) H 10/12/24 12:40 POC Glucose 127 mg/dL (70-110) H 10/12/24 13:03 Calculated Osmolality 292 mOsm/kg (285-295) 10/12/24 12:40 Calcium 8.9 mg/dL (8.5-10.5) 10/12/24 12:40 Total Bilirubin 0.2 mg/dL (0.15-1.2) 10/12/24 12:40 AST 23 U/L (0-32) 10/12/24 12:40 ALT 23 U/L (0-33) 10/12/24 12:40 Alkaline Phosphatase 69 U/L (35-105) 10/12/24 12:40 Total Protein 7.3 g/dL (6.6-8.7) 10/12/24 12:40 Albumin 4.3 g/dL (3.5-5.2) 10/12/24 12:40 Globulin 3.0 g/dL (1.3-4.6) 10/12/24 12:40 Lipase 105 U/L (13-60) H 10/12/24 12:40 All radiology interpretation(s) finalized by discharge EKG Data EKG 1: I personally reviewed and interpreted this EKG as follows: EKG interpretation date: 10/12/24 EKG interpretation time: 13:01 Interpretation: nsr hr [address] elevation qrs 74 qtc 410 Discharge Plan Discharge Patient Disposition: Placed in Observation Clinical Impression: CVA (cerebrovascular accident) Condition: Stable Prescriptions: No Action PreserVision AREDS-2 250-90-40-1 mg capsule 1 tab PO BID coenzyme Q10 [CoQ-10] 100 mg capsule 100 mg PO DAILY cholecalciferol (vitamin D3) 1,250 mcg (50,000 unit) capsule 5,000 unit PO DAILY Qty: 30 3RF (DME) Custom Inserts with Toe Filler See Rx Instructions .Route .MEDSUPPLY Qty: 1 0RF Rx Instructions: As directed sodium bicarbonate 650 mg tablet 650 mg PO BID mupirocin 2 % ointment 1 applic topical TID PRN (Reason: wound care) Qty: 15 2RF Rx Instructions: apply to wound TID and as needed with dressing changes, cover with band-aid Lantus Solostar U-100 Insulin 100 unit/mL (3 mL) insulin pen See Rx Instructions .ROUTE .COMPLEX Dose Instruction: inject 38 units (0.38ml) SUBCUTANEOUSLY EVERY DAY Rx Instructions: inject 26 units SUBCUTANEOUSLY EVERY DAY Ozurdex 0.7 mg implant 0.7 implant intravitreal .Q3Y Vabysmo 6 mg/0.05 mL solution 0.05 ml intravitreal Q6M lisinopril 2.5 mg tablet 2.5 mg PO BID Qty: 180 3RF Rx Instructions: TAKE 1 TABLET BY MOUTH TWICE DAILY rosuvastatin 10 mg tablet 10 mg PO DAILY Qty: 90 3RF clopidogrel 75 mg tablet 75 mg PO DAILY Qty: 90 3RF Hold Instructions: Resume on 06/17/24. Rx Instructions: TAKE 1 TABLET BY MOUTH EVERY DAY latanoprost 0.005 % drops 1 drp ophthalmic (eye) DAILY (DME) Accu-Chek Guide test strips Strip See Rx Instructions .ROUTE .COMPLEX Qty: 300 0RF Dose Instruction: USE TO TEST THREE TIMES DAILY (E11.9) Rx Instructions: USE TO TEST THREE TIMES DAILY (E11.9) insulin aspart U-100 [Novolog FlexPen U-100 Insulin] 100 unit/mL (3 mL) insulin pen 10 unit SUBCUT TID 90 Days Qty: 27 1RF (DME) Dexcom G7 Sensor Device See Rx Instructions .Route Qty: 3 3RF Rx Instructions: As directed (DME) Dexcom G7 Devops Consultant Misc See Rx Instructions .Route Qty: 1 0RF Rx Instructions: As directed dapagliflozin propanediol [Farxiga] 5 mg tablet 5 mg PO DAILY Qty: 90 1RF aspirin [Aspir-81] 81 mg Tablet,Delayed Release (Dr/Ec) 81 mg PO DAILY Tradjenta 5 mg tablet 5 mg PO DAILY omega 3-uug-tzr-fish oil [Fish Oil] 1,000 (120-180) mg Capsule 2,000 cap PO DAILY Referrals: Elisa Gallegos MD [Primary Care Provider] - Coding Level of Care Code ED Mathematics Lecturer for Chg Becky
[2024-10-12 12:57] LABS: Basophils # 0.1 10^3/uL (0.0-0.1); Basophils % 0.9 %; Eosinophils # 0.3 10^3/uL (0.0-0.8); Eosinophils % 3.4 %; Hematocrit 42.8 % (36-47); Lymphocytes # 1.9 10^3/uL (0.8-4.8); Lymphocytes % 23.7 %; Mean Corpuscular HGB Conc 31.1 g/dL (30-55); Mean Corpuscular Volume 83.8 fl (85-98); Monocytes # 0.9 10^3/uL (0.2-0.9); Monocytes % 11.5 %; Neutrophils # 4.83 10^3/uL (1.8-7.7); Neutrophils % 60.1 %; Nucleated Red Blood Cells % 0 %; Platelet Count 228 10^3/cmm (157-399); Red Blood Count 5.11 10^6/uL (3.85-5.65); White Blood Count 8.02 10^3/uL (3.29-11.43)
[2024-10-12 13:08] LABS: Glucose Point of Care 127 mg/dL (70-110)
[2024-10-12 13:22] LABS: INR 0.92 (0.8-1.2)
[2024-10-12 13:27] LABS: Alanine Aminotransferase 23 U/L (0-33); Albumin Level 4.3 g/dL (3.5-5.2); Alkaline Phosphatase 69 U/L (35-105); Anion Gap 16.8 (5-19); Aspartate Amino Transferase 23 U/L (0-32); Blood Urea Nitrogen 32 mg/dL (8-23); Calcium 8.9 mg/dL (8.5-10.5); Carbon Dioxide 22 mmol/L (22-29); Chloride 103 mmol/L (98-107); Glomerular Filtration Rate 30.5 mL/min (90-130); Glucose 117 mg/dL (65-115); Lipase 105 U/L (13-60); Osmolality Calculated 292 mOsm/kg (285-295); Potassium 4.8 mmol/L (3.5-5.1); Sodium 137 mmol/L (136-145); Total Bilirubin 0.2 mg/dL (0.15-1.2); Total Protein 7.3 g/dL (6.6-8.7)
[2024-10-12] MEDS: aspirin 81 mg Chew Tablet 324 MG PO (14:28)
--- NOTE | 2024-10-12 14:54 | P.HP_ITS ---
Providers/Chief Complaint 2 Primary Care Provider: Elisa Gallegos MD Chief Complaint: Sent by Rosy poss stroke History of Present Illness Misti Abbott is a 64 year old female with past medical history of diabetes mellitus, stroke in 1999 and 2019 , hyperlipidemia, CKD, diabetic neuropathy, diabetic retinopathy presented with complaint of dizziness since 2 days. As per the patient she started feeling sudden dizziness and blurring of left eye vision associated with nausea but no vomiting. She has a history of BPPV but this episode seems different from her usual. She went to see her primary care physician this morning and was referred to ER for further workup. She denies any history of fever, cough, shortness of breath, chest pain, palpitations, speech abnormalities, focal weakness or facial abnormalities. She does have a history of diabetic retinopathy and has been following up with senior asp net developer as an outpatient. In ER she was found to have creatinine of 1.7 which is baseline Chest x-ray and CT head negative for any acute findings Review of Systems 2 General: Reports: 10 or more systems reviewed and unremarkable except in HPI and below Medications/Allergies Home Medications Medication Instructions Recorded Confirmed Last Taken Type vit C 250 mg-vit E 90 mg-zinc 40 1 tab PO BID 11/04/22 10/12/24 10/12/24 History mg-copper 1 vh-gwydfg-uphxoi capsule (PreserVision AREDS-2) cholecalciferol (vitamin D3) 1,250 5,000 unit PO DAILY #30 caps 02/01/23 10/12/24 10/12/24 Rx mcg (50,000 unit) capsule coenzyme Q10 100 mg capsule 100 mg PO DAILY 02/09/23 10/12/24 10/12/24 History (CoQ-10) sodium bicarbonate 650 mg tablet 650 mg PO BID 06/10/23 10/12/24 10/12/24 History Custom Inserts with Toe Filler #1 ea 06/28/23 10/12/24 Unknown Rx faricimab-svoa 6 mg/0.05 mL 0.05 ml intravitreal Q6M 01/11/24 10/12/24 Unknown History intravitreal solution (Vabysmo) blood sugar diagnostic (Accu-Chek #300 ea 04/18/24 10/12/24 Unknown Rx Guide test strips) insulin aspart U-100 100 unit/mL 10 unit (0.1 mL) SUBCUT TID 90 04/19/24 10/12/24 10/12/24 Rx (3 mL) subcutaneous pen (Novolog days #27 mL FlexPen U-100 Insulin aspart) blood-glucose meter,continuous #1 ea 06/05/24 10/12/24 Unknown Rx (Dexcom G7 Sample Maker Original) blood-glucose sensor (Dexcom G7 #3 ea 06/05/24 10/12/24 Unknown Rx Sensor device) dapagliflozin propanediol 5 mg 5 mg PO DAILY #90 tabs 06/05/24 10/12/24 10/12/24 Rx tablet (Farxiga) clopidogrel 75 mg tablet 75 mg PO DAILY #90 tabs 07/10/24 10/12/24 10/12/24 Rx lisinopril 2.5 mg tablet 2.5 mg PO BID #180 tabs 07/10/24 10/12/24 10/12/24 Rx rosuvastatin 10 mg tablet 10 mg PO DAILY #90 tabs 07/10/24 10/12/24 10/12/24 Rx mupirocin 2 % topical ointment 1 applic topical TID PRN wound 09/26/24 10/12/24 Unknown Rx care #15 grams latanoprost 0.005 % eye drops 1 drp ophthalmic (eye) DAILY 10/05/24 10/12/24 10/12/24 History aspirin 81 mg tablet,delayed 81 mg PO DAILY 10/12/24 10/12/24 10/12/24 History release dexamethasone 0.7 mg intravitreal 0.7 implant intravitreal .Q3Y 10/12/24 10/12/24 Unknown History implant (Ozurdex) insulin glargine 100 unit/mL (3 See Rx Instructions .Route .COMPLEX 10/12/24 10/12/24 10/12/24 History mL) subcutaneous pen (Lantus Solostar U-100 Insulin) linagliptin 5 mg tablet (Tradjenta) 5 mg PO DAILY 10/12/24 10/12/24 10/11/24 History omega 0-mip-prg-fish oil 1,000 mg 2,000 cap PO DAILY 10/12/24 10/12/24 Unknown History (120 mg-180 mg) capsule (Fish Oil) Allergies Allergy/AdvReac Type Severity Reaction Status Date / Time ibuprofen Allergy Unknown Verified 10/12/24 12:42 Penicillins Allergy Unknown Verified 10/12/24 12:42 codeine AdvReac Knocks her Verified 10/12/24 12:42 out PFSH Acute 2 PFSH: Medical History (Updated 10/12/24 @ 15:06 by Ilana Guzman MD) History of subdural hematoma (post traumatic) Degenerative joint disease (DJD) of lumbar spine Subacromial bursitis Joint pain Stroke 1999 and 2019 Hx-TIA (transient ischemic attack) Hyperlipidemia with low HDL Type 2 diabetes mellitus with diabetic neuropathy, unspecified Surgical History (Updated 10/12/24 @ 11:16 by Elisa Gallegos MD) History of lumbar surgery Status post colonoscopy with polypectomy (08/08/20) H/O esophagogastroduodenoscopy (08/08/20) H/O tubal ligation History of amputation of great toe right 07/25/2019 Family History (Updated 10/12/24 @ 11:18 by Elisa Gallegos MD) Sister CAD (coronary artery disease) Father Rheumatoid arthritis Other Diabetes Heart disease Hypertension Denies family history of Lupus (systemic lupus erythematosus) Osteoporosis Migraines Chronic kidney disease (CKD) Cancer Stroke Social History (Updated 10/12/24 @ 11:21 by Elisa Gallegos MD) Smoking and tobacco/nicotine status: former use of tobacco/nicotine Quit status (tobacco/nicotine): has quit using Year quit tobacco: 1999 Second hand smoke exposure: No Alcohol intake: never Substance/Drug Use: never Household members: spouse Marital status: Marital status details: 24 year as of 2023 Number of children: 3 Number of grandchildren: 2 Current occupational status: unemployed 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 Pets and animals: Yes Pets & animals: cat(s) Special natasha needs: No Agree to transfusion: Yes Vitals/I&O/Wt Last Vital Signs Temp 98.0 F 10/12/24 12:37 Pulse 83 10/12/24 12:37 BP 138/95 10/12/24 12:37 Pulse Ox 99 10/12/24 12:37 O2 Del Method Room Air 10/12/24 12:37 Weight last 48 hrs Weight 87.997 kg Physical Exam 2 Narrative: She is alert awake oriented x 3, not in acute distress Chest clear to auscultation bilaterally Cardiovascular normal heart sounds, no murmurs Abdomen soft nontender nondistended normal bowel sounds Extremities no edema noted bilateral lower extremity Neurologically-no facial asymmetry seen, no sensory or motor deficits noted bilateral upper and lower extremities, speech normal, has baseline right eye blurring of vision, now complaint of left eye blurring of vision since 2 days Data 10/12/24 12:40 10/12/24 12:40 A&P Assessment and plan (1) Diabetic polyneuropathy: Qualifiers: Diabetes mellitus type: type 2 Qualified Code(s): E11.42 - Type 2 diabetes mellitus with diabetic polyneuropathy (2) Diabetic retinopathy: (3) CKD stage 3 secondary to diabetes: (4) Essential hypertension: (5) TIA (transient ischemic attack): Plan Misti Abbott is a 64 year old female with past medical history of diabetes mellitus, stroke in 1999 and 2019, hyperlipidemia, CKD, diabetic neuropathy, diabetic retinopathy presented with complaint of dizziness since 2 days. As per the patient she started feeling sudden dizziness and blurring of left eye vision associated with nausea but no vomiting. Likely secondary to TIA versus BPPV. Initial CT head negative for any acute findings Will do MRI brain without contrast in a.m. will need neurology consult if MRI is abnormal Fall precautions Check orthostasis Neurochecks Bedside dysphagia eval Visual abnormalities-likely secondary to diabetic retinopathy Will need outpatient ophthalmology eval Diabetes mellitus-continue home medication Lantus and NovoLog, Farxiga and Jardiance Hypertension-continue BAG SEALER lisinopril Hyperlipidemia-continue BAG SEALER rosuvastatin Continue BAG SEALER aspirin and Plavix. Diet-n.p.o. for now DVT prophylaxis with SCD GI prophylaxis with IV Pepcid 20 mg twice daily. CODE STATUS discussed with the patient she is DNR/DNI. Attestations 2 Medical Necessity Statement*: She needs continued hospitalization not crossing 2 midnights for management of possible stroke with MRI brain without contrast and neurology evaluation if needed Time Spent in Patient Care: 40 minutes Coding Level of Care Code Acute Code for [facility] Fwd Diagnoses Diabetic polyneuropathy associated with type 2 diabetes mellitus E11.42 Diabetes mellitus type: type 2 Diabetic retinopathy E11.319 CKD stage 3 secondary to diabetes E11.22; N18.30 Essential hypertension I10 TIA (transient ischemic attack) G45.9 Time Spent (min) 40
[2024-10-12 15:21] LABS: Bilirubin Urine Negative (Negative); Blood Urine Negative (Negative); Glucose Urine UA 2+ (Normal); Ketones Urine Negative (Negative); Leukocyte Esterase Urine Negative (Negative); Nitrate Urine Negative (Negative); Protein Urine 1+ (Negative); Urine Appearance Clear (CLEAR); Urine Color Yellow (Yellow); Urobilinogen Urine 0.2 mg/dL (Negative); pH Urine 5.5 (5-7)
[2024-10-12 15:25] LABS: Add Urine Microscopic? YES; Bacteria Urine None Seen /hpf; RBC Urine 0-2 /hpf (0-2); Squamous Epithelial Cell Urine 0-5 /hpf (0-5); WBC Urine 0-5 /hpf (0-5)
[2024-10-12 15:36] VITALS: BP 134/88; PULSE 77; O2SAT 98
--- NOTE | 2024-10-12 16:15 | PC.NURSE ---
This nurse to room with RACHEL Urbina to fix overhead light switch. This nurse able to turn the light on, but not back off. Told the patient and her family that because the light was not fully functional, we would move her to a different room with fully functioning light switch. The patient and her declined, stating it was perfectly fine. This nurse asked if she was sure she would like to stay in the room and if it wasn't a problem, and the patient stated Yes, I'm sure. I'll have to see to get up to the bedside commode in the middle of the night anyway. After confirming the patient and her were sure, this nurse left the room after ensuring the patient's needs were met and call light in reach.
--- NOTE | 2024-10-12 16:38 | PM.MISC ---
Miscellaneous Note Purpose of Documentation: Patient left AMA Note: Patient was just admitted to evaluate for CVA/TIA. Explained and counseled about risk and benefits about medical treatment and evaluation for CVA. She does not want to be admitted and wants to leave AGAINST MEDICAL ADVICE.
== END 2024-10-12 16:44 | disposition home or self-care (01) ==
LOC: ER 13:59 → MEDSURG 15:30
PROVIDERS: Admitting Provider Internal Medicine; Emergency Provider Emergency Medicine; PCP Family Medicine; Visit Provider Internal Medicine
DX: G45.9 Transient cerebral ischemic attack, unspecified (principal); R29.702 NIHSS score 2; Z53.29 Procedure and treatment not carried out because of patient's decision for other reasons; E11.42 Type 2 diabetes mellitus with diabetic polyneuropathy; E11.319 Type 2 diabetes mellitus with unspecified diabetic retinopathy without macular edema; E11.22 Type 2 diabetes mellitus with diabetic chronic kidney disease; I12.9 Hypertensive chronic kidney disease with stage 1 through stage 4 chronic kidney disease, or unspecified chronic kidney disease; N18.30 Chronic kidney disease, stage 3 unspecified; E78.5 Hyperlipidemia, unspecified; Z87.891 Personal history of nicotine dependence
CPT/HCPCS: 36415; 36416; 70450; 71045; 80053; 81001; 82962; 83690; 85025; 85610; 93005; 99285; G0378; J1815

== ENCOUNTER → 2025-01-02 09:51 | Outpatient (BNVA) | payer MEDICARE, SELFPAY | PROVIDERS: PCP Family Medicine; Visit Provider Podiatrist Foot & Ankle Surgery | DX: E11.42 Type 2 diabetes mellitus with diabetic polyneuropathy (principal); E11.40 Type 2 diabetes mellitus with diabetic neuropathy, unspecified; Z79.4 Long term (current) use of insulin; E11.22 Type 2 diabetes mellitus with diabetic chronic kidney disease; N18.30 Chronic kidney disease, stage 3 unspecified; E55.9 Vitamin D deficiency, unspecified; Z89.429 Acquired absence of other toe(s), unspecified side; Z89.421 Acquired absence of other right toe(s); Z89.411 Acquired absence of right great toe | CPT/HCPCS: 99213 ==

== ENCOUNTER → 2025-02-21 11:02 | Outpatient (BNVA) | payer MEDICARE, SELFPAY | PROVIDERS: PCP Family Medicine; Visit Provider Internal Medicine | DX: E55.9 Vitamin D deficiency, unspecified (principal); D64.9 Anemia, unspecified; I10 Essential (primary) hypertension; E78.5 Hyperlipidemia, unspecified; E78.6 Lipoprotein deficiency; E11.40 Type 2 diabetes mellitus with diabetic neuropathy, unspecified; Z79.4 Long term (current) use of insulin | CPT/HCPCS: 80053; 80061; 80069; 82043; 82306; 82310; 83036; 83970; 85025 ==

== ENCOUNTER → 2025-02-27 11:53 | Outpatient (BNVA) | payer MEDICARE, SELFPAY | PROVIDERS: PCP Family Medicine; Visit Provider Internal Medicine | DX: E11.22 Type 2 diabetes mellitus with diabetic chronic kidney disease (principal); N18.30 Chronic kidney disease, stage 3 unspecified; E55.9 Vitamin D deficiency, unspecified; Z89.429 Acquired absence of other toe(s), unspecified side; E11.42 Type 2 diabetes mellitus with diabetic polyneuropathy; E11.40 Type 2 diabetes mellitus with diabetic neuropathy, unspecified; Z79.4 Long term (current) use of insulin; E11.319 Type 2 diabetes mellitus with unspecified diabetic retinopathy without macular edema; E78.5 Hyperlipidemia, unspecified; E78.6 Lipoprotein deficiency | CPT/HCPCS: 36415; 80048; 80053; 80061; 82044; 83036 ==

== ENCOUNTER 2025-03-07 11:45 | Outpatient (CLI) | payer MEDICARE, SELFPAY ==
--- NOTE | 2025-03-07 11:40 | MM_ITS ---
WS: [id number] Bilateral screening 3D tomosynthesis digital mammogram, 03/07/2025 11:52 AM Clinical Data: SCREENING Comparison: 02/08/2024, 08/16/2020. Findings: No spiculated masses or clustered calcifications are seen. There are no secondary signs of carcinoma. MM/MM scr BI tomosynthesis [id number] Impression: Negative bilateral mammogram unchanged. Recommend annual screening mammograms. BIRADS: 1 - Negative. FOLLOW UP: 1 Year Follow-up DENSITY: There are scattered areas of fibroglandular density. The CAD body design checker was used
== END 2025-03-07 11:46 | disposition home or self-care (01) ==
PROVIDERS: PCP Family Medicine; Visit Provider Family Medicine
DX: Z12.31 Encounter for screening mammogram for malignant neoplasm of breast (principal); R92.323 Mammographic fibroglandular density, bilateral breasts
CPT/HCPCS: 77063; 77067

== ENCOUNTER → 2025-05-08 07:52 | Outpatient (BNVA) | payer MEDICARE, SELFPAY | PROVIDERS: PCP Family Medicine; Visit Provider Podiatrist Foot & Ankle Surgery | DX: E11.8 Type 2 diabetes mellitus with unspecified complications (principal); E11.42 Type 2 diabetes mellitus with diabetic polyneuropathy; Z79.4 Long term (current) use of insulin; E11.22 Type 2 diabetes mellitus with diabetic chronic kidney disease; N18.30 Chronic kidney disease, stage 3 unspecified; E55.9 Vitamin D deficiency, unspecified; Z89.411 Acquired absence of right great toe; Z89.421 Acquired absence of other right toe(s) | CPT/HCPCS: 99213 ==

== ENCOUNTER 2025-07-27 08:14 | Outpatient (CLI) | payer MEDICARE, SELFPAY ==
[2025-07-27 08:46] LABS: Glucose Urine UA Negative (Normal); Nitrate Urine Negative (Negative); Specific Gravity, Urine 1.018 (1.005-1.030)
== END 2025-07-27 08:15 | disposition home or self-care (01) ==
PROVIDERS: PCP Family Medicine; Visit Provider Internal Medicine Nephrology
DX: R30.0 Dysuria (principal)
CPT/HCPCS: 81001; 87086

== ENCOUNTER → 2025-08-07 09:29 | Outpatient (BNVA) | payer MEDICARE, SELFPAY | PROVIDERS: PCP Family Medicine; Visit Provider Nurse Practitioner Family | DX: R30.0 Dysuria (principal); N39.0 Urinary tract infection, site not specified | CPT/HCPCS: 81000; 87086 ==

== ENCOUNTER 2025-08-23 08:36 | Outpatient (CLI) | payer MEDICARE, SELFPAY ==
[2025-08-23 09:28] LABS: Hematocrit 41.9 % (36-47); Hemoglobin 13.20 g/dL (11.27-16.99); Mean Corpuscular HGB Conc 31.5 g/dL (30-55); Mean Corpuscular Hemoglobin 26.7 pg (27-33); Mean Corpuscular Volume 84.6 fl (85-98); Nucleated Red Blood Cells % 0 %; Platelet Count 232 10^3/cmm (157-399); Red Blood Count 4.95 10^6/uL (3.85-5.65); White Blood Count 7.78 10^3/uL (3.29-11.43)
[2025-08-23 09:50] LABS: Calcium 9.6 mg/dL (8.5-10.5)
[2025-08-23 09:53] LABS: Creatinine Urine, Random 200 mg/dL (28-217)
[2025-08-23 09:54] LABS: Microalbum Creatinine Ratio Ur 140 mg/dL (0-20)
[2025-08-23 09:56] LABS: Albumin Level 4.5 g/dL (3.5-5.2); Anion Gap 16.4 (5-19); Blood Urea Nitrogen 40 mg/dL (8-23); Calcium 9.7 mg/dL (8.5-10.5); Carbon Dioxide 25 mmol/L (22-29); Chloride 106 mmol/L (98-107); Glucose 71 mg/dL (65-115); Potassium 5.4 mmol/L (3.5-5.1); Sodium 142 mmol/L (136-145)
== END 2025-08-23 08:37 | disposition home or self-care (01) ==
PROVIDERS: Absent Provider Internal Medicine; PCP Family Medicine; Visit Provider Registered Nurse
DX: N18.32 Chronic kidney disease, stage 3b (principal)
CPT/HCPCS: 36415; 80069; 82044; 82306; 82310; 83970; 85025

== ENCOUNTER → 2025-08-28 09:22 | Outpatient (BNVA) | payer MEDICARE, SELFPAY | PROVIDERS: PCP Family Medicine; Visit Provider Internal Medicine | DX: E11.42 Type 2 diabetes mellitus with diabetic polyneuropathy (principal); E11.22 Type 2 diabetes mellitus with diabetic chronic kidney disease; N18.30 Chronic kidney disease, stage 3 unspecified; E11.319 Type 2 diabetes mellitus with unspecified diabetic retinopathy without macular edema; E78.5 Hyperlipidemia, unspecified; E55.9 Vitamin D deficiency, unspecified; Z79.4 Long term (current) use of insulin | CPT/HCPCS: 99214 ==

== ENCOUNTER → 2025-10-01 07:52 | Outpatient (BNVA) | payer MEDICARE, SELFPAY | PROVIDERS: PCP Family Medicine; Visit Provider Podiatrist Foot & Ankle Surgery | DX: E11.8 Type 2 diabetes mellitus with unspecified complications (principal); E11.42 Type 2 diabetes mellitus with diabetic polyneuropathy; E11.40 Type 2 diabetes mellitus with diabetic neuropathy, unspecified; Z79.4 Long term (current) use of insulin; E11.22 Type 2 diabetes mellitus with diabetic chronic kidney disease; N18.30 Chronic kidney disease, stage 3 unspecified; E55.9 Vitamin D deficiency, unspecified; Z89.429 Acquired absence of other toe(s), unspecified side; Z89.421 Acquired absence of other right toe(s) | CPT/HCPCS: 99213 ==

== ENCOUNTER 2025-10-29 13:55 | Outpatient (CLI) | payer MEDICARE, SELFPAY ==
--- NOTE | 2025-10-29 14:30 | XR_ITS ---
WS: [id number] SCREENING DEXA SCAN [employer] CLINICAL INFORMATION: Z78.0 - Asymptomatic menopausal state COMPARISON: None. FINDINGS: The L1-L4 bone mineral density measures 1.619 g/cm2. This corresponds to a T score score of 3.7 and Z score of 4.4. Left femoral neck bone mineral density measures 0.862 g/cm2. This corresponds to a T score of -1.2 and Z score of -0.6. Right femoral neck bone mineral density measures 0.952 g/cm2. This corresponds to a T score -0.4of and Z score of 0.1. Mean femoral neck bone mineral density measures 0.907 g/cm2. This corresponds to a T score of -0.8 and Z score of -0.2. XR/XR DEXA axial skeleton* [id number] IMPRESSION: Normal bone mineralization. Patient's FRAX calculated 10 year probability for major osteoporotic fracture i s 8.1% and osteoporotic hip fracture is 0.7%.
== END 2025-10-29 13:56 | disposition home or self-care (01) ==
LOC: RAD 13:56
PROVIDERS: PCP Family Medicine; Visit Provider Family Medicine
DX: Z13.820 Encounter for screening for osteoporosis (principal); Z78.0 Asymptomatic menopausal state
CPT/HCPCS: 77080